=== PATIENT | female | born 1940 | race Caucasian/White ===

== ENCOUNTER 2017-06-28 10:03 | Day surgery (SDC) | payer MEDICARE, BC ==
[2017-06-26 09:57] VITALS: BMI 25.4
[~2017-06-28 10:03] MED LIST: LACTATED RINGERS 1,000 ML IV SCH; LIDOCAINE 1% 20 ML VIAL (10MG/ML) FOR IV START INTRADERMA PRN
[2017-06-28 10:44] VITALS: RESP 16; TEMP 97.6
[2017-06-28 10:55] LABS: Glucose,Whole Blood 87 mg/dL (75-99)
[2017-06-28] MEDS ORDERED: PROPOFOL 10 MG/ML 20 ML VIAL IV ONE (12:12)
[2017-06-28] MEDS ORDERED: LIDOCAINE 1% INJ 10MG/ML (20 ML MDV) ONE (12:12)
--- NOTE | 2017-06-28 12:40 | P.GSHP ---
History of Present Illness H&P Date: 06/28/17 Chief Complaint: Colon cancer screening Patient here today for colonoscopy. Last colonoscopy approximately 10 years ago. No bowel related complaints. No family history of colon cancer. Past Medical History Past Medical History: Asthma, Cancer, Deep Vein Thrombosis (DVT), GERD/Reflux, Hypertension, Osteoarthritis (OA), Skin Disorder Additional Past Medical History / Comment(s): psoriasis, basal cell cancer on face, hypoglycemia History of Any Multi-Drug Resistant Organisms: None Reported Past Surgical History: Joint Replacement, Orthopedic Surgery Additional Past Surgical History / Comment(s): cancer removed from face, neck surgery, carpal tunnel rt elbow, rt knee replacement, artie cataracts Past Anesthesia/Blood Transfusion Reactions: Postoperative Nausea & Vomiting ( PONV) Smoking Status: Former smoker - Past Family History Brother(s) Family Medical History: Cancer Additional Family Medical History / Comment(s): melanoma Medications and Allergies Home Medications Medication Instructions Recorded Confirmed Type Aspirin [Adult Low Dose Aspirin EC] 81 mg PO DAILY 06/26/17 06/26/17 History Benazepril HCl [Lotensin] 80 mg PO PC-SUPPER 06/26/17 06/26/17 History Calcium Carbonate [Calcium] 600 mg PO BID 06/26/17 06/26/17 History Hydrocodone/Acetaminophen [Vaughan 1 tab PO Q6HR PRN 06/26/17 06/28/17 History 7.5-325] Meloxicam 15 mg PO DAILY 06/26/17 06/26/17 History Multivitamins, Thera [Multivitamin 1 tab PO DAILY 06/26/17 06/26/17 History (formulary)] Omeprazole [PriLOSEC] 20 mg PO AC-BRKFST 06/26/17 06/26/17 History Triamterene-Hctz 37.5-25Mg 1 cap PO DAILY 06/26/17 06/26/17 History [Dyazide 37.5-25 Capsule] Vitamin E (Dl,Tocopheryl Acet) 400 unit PO DAILY 06/26/17 06/26/17 History [Vitamin E] Allergies Allergy/AdvReac Type Severity Reaction Status Date / Time No Known Allergies Allergy Verified 06/28/17 10:33 Surgical - Exam Vital Signs Temp Pulse Resp BP Pulse Ox 97.6 F 83 16 180/83 98 06/28/17 10:42 06/28/17 10:42 06/28/17 10:42 06/28/17 10:42 06/28/17 10:42 Physical exam: General: Well-developed, well-nourished HEENT: Normocephalic, sclerae nonicteric Abdomen: Nontender, nondistended Extremities: No edema Neuro: Alert and oriented Assessment and Plan (1) Colon cancer screening Narrative/Plan: will procede with colonoscopy Current Visit: Yes Status: Acute Code(s): Z12.11 - ENCOUNTER FOR SCREENING FOR MALIGNANT NEOPLASM OF COLON SNOMED Code(s): 685633141
--- NOTE | 2017-06-28 13:06 | P.OP ---
Date of Procedure: 06/28/17 Procedure(s) Performed: PREOPERATIVE DIAGNOSIS: Colon cancer screening POSTOPERATIVE DIAGNOSIS: Extensive diverticulosis PROCEDURE: Colonoscopy ANESTHESIA: MAC SURGEON: Rubio Chawla M.D. SPECIMENS: None ENDOSCOPIC PROCEDURE: The patient was placed on the endoscopy table in the left decubitus position. The Olympus colonoscope was inserted into the anus and passed under direct visualization to the base of the cecum. The appendiceal orifice was visualized. From that point the scope was slowly withdrawn inspecting all surfaces carefully. There were no neoplastic inflammatory or polypoid lesions throughout the cecum, ascending, transverse, descending, sigmoid and rectum. There was extensive diverticulosis noted throughout the colon but mostly within the left colon. Digital rectal examination was normal. The patient was taken to the recovery room in stable condition per anesthesia guidelines. RECOMMENDATIONS: Increase fiber. No further screening plan at this time.
[2017-06-28 13:36] VITALS: BP 157/83; PULSE 68
== END 2017-06-28 14:01 | disposition home or self-care (01) ==
LOC: ORWHC2ENDO 10:03
PROVIDERS: ATTEND Surgery
DX: Z12.11 Encounter for screening for malignant neoplasm of colon (principal); K57.30 Diverticulosis of large intestine without perforation or abscess without bleeding; J45.909 Unspecified asthma, uncomplicated; K21.9 Gastro-esophageal reflux disease without esophagitis; I10 Essential (primary) hypertension; M19.90 Unspecified osteoarthritis, unspecified site; Z85.828 Personal history of other malignant neoplasm of skin; Z86.718 Personal history of other venous thrombosis and embolism; Z79.82 Long term (current) use of aspirin; Z79.1 Long term (current) use of non-steroidal anti-inflammatories (NSAID); Z79.899 Other long term (current) drug therapy; Z87.891 Personal history of nicotine dependence
CPT/HCPCS: J2001; J2704; G0121; 45378

== ENCOUNTER → 2018-07-02 | Outpatient (CLI) | payer MEDICARE, BC ==
--- NOTE | 2018-07-04 03:55 | MR ---
EXAMINATION TYPE: MR lumbar spine wo con DATE OF EXAM: 07/02/2018 COMPARISON: 01/05/2015 HISTORY: 77-year-old female Low back pain TECHNIQUE: Multiplanar, multisequence images of the lumbar spine were acquired. FINDINGS: Ectatic upper abdominal aorta at 2.7 cm. The right kidney appears malrotated with underlying cysts measuring up to 3.5 cm. AP to mildly hyperi ntense 2.1 cm lesion lateral right kidney was not previously included in the hnwnl-al-vugi. Renal ult rasound can exclude the possibility of a solid mass. A cyst is suspected. Advanced degenerative dextroconvex scoliosis of the lumbar spine. Degree of spinal curvature makes assessment very difficult. There is moderate to advanced multilevel disc/endplate degenerative changes especially along the size of the cavity as well as hypertrophic facet arthropathy and ligamentum flavum thickening. Mild diffuse heterogeneous marrow signal without suspicious bone marrow replacement. Conus medullaris is normal. At T11-T12, there is diffuse disc bulge and ligamentum flavum thickening. Changes result in mild narr owing of the spinal canal and apparent severe right neuroforaminal stenosis. At T12-L1, diffuse disc bulge and ligamentum flavum thickening with facet arthropathy. Changes result in moderate right neuroforaminal stenosis and mild spinal canal stenosis. At L1-L2, diffuse disc bulge with ligamentum flavum thickening and hypertrophic facet arthropathy. Ch anges result in cldx-ol-sqhvstco right and severe left neuroforaminal stenosis. Mild spinal canal edmond nosis. At L2-L3, diffuse disc bulge with hypertrophic facet arthropathy on the left and ligamentum flavum th ickening. Changes result in severe left neuroforaminal stenosis and mild overall spinal canal stenosi s. At L3-L4, diffuse disc bulge with hypertrophic facet arthropathy on the left and ligamentum flavum th ickening changes result in more moderate spinal canal stenosis, slightly worsened in the interval wit h moderate left and mild right neuroforaminal stenosis. L4-L5, there is diffuse disc bulge with ligamentum flavum thickening and hypertrophic facet arthropat hy on both sides, particularly the right. There is continued severe spinal canal stenosis here with m oderate left and severe right neuroforaminal stenosis. At L5-S1, diffuse disc bulge with ligamentum flavum thickening and prominent dorsal epidural fat. Hyp ertrophic right greater than left facet arthropathy. There is mild spinal canal stenosis and continue d severe right neuroforaminal stenosis. IMPRESSION: 1. A 2.1 cm mildly hyperintense lesion in the right kidney previously not included in the field-of-vi ew. A cyst is suspected but should be confirmed with renal ultrasound. Adjacent larger 3.5 cm cyst wa s seen previously. 2. Severe degenerated dextroconvex scoliosis. Continued severe spinal canal stenosis at L4-L5. A mode rate spinal canal stenosis at L3-L4 as slightly worsened in the interval. Mild spinal canal stenoses at additional levels. 3. Variable bilateral neuroforaminal stenoses as outlined above, moderate and severe at multiple leve ls.
== END ==
LOC: RADMRIMAIN 13:24
PROVIDERS: ATTEND Family Medicine
DX: M48.061 Spinal stenosis, lumbar region without neurogenic claudication (principal); M99.73 Connective tissue and disc stenosis of intervertebral foramina of lumbar region; M41.9 Scoliosis, unspecified
CPT/HCPCS: 72148

== ENCOUNTER → 2019-03-29 | Outpatient (CLI) | payer MEDICARE, BC ==
[2019-03-29 11:56] LABS: Appearance,Urine Clear (Clear); Bilirubin,Urine Negative (Negative); Blood,Urine Negative (Negative); Color,Urine Light Yellow; Glucose,Urine (UA) Negative (Negative); Ketones,Urine Negative (Negative); Leukocyte Esterase,Urine Negative (Negative); Nitrite,Urine Negative (Negative); PH, Urine 6.5 (5.0-8.0); Protein,Urine Negative (Negative); Specific Gravity,Urine 1.008 (1.001-1.035); Urobilinogen,Urine <2.0 mg/dL (<2.0)
[2019-03-29 11:58] LABS: HCT 40.8 % (34.0-46.0); HGB 12.5 gm/dL (11.4-16.0); MCH 29.8 pg (25.0-35.0); MCHC 30.7 g/dL (31.0-37.0); MCV 97.1 fL (80.0-100.0); Mean Platelet Volume 8.1; Platelet Count 285 k/uL (150-450); RDW 12.5 % (11.5-15.5); WBC 7.1 k/uL (3.8-10.6)
[2019-03-29 12:05] LABS: ALT 22 U/L (9-52); AST 31 U/L (14-36); African American GFR (CKD) >90 (>60 ml/min/1.73 sqM); Albumin 4.6 g/dL (3.5-5.0); Alkaline Phosphatase 91 U/L (38-126); Anion Gap 9 mmol/L; Blood Urea Nitrogen 13 mg/dL (7-17); Calcium 9.9 mg/dL (8.4-10.2); Carbon Dioxide 26 mmol/L (22-30); Chloride 99 mmol/L (98-107); Glucose 95 mg/dL (74-99); Potassium 4.3 mmol/L (3.5-5.1); Sodium 134 mmol/L (137-145); Total Bilirubin 0.8 mg/dL (0.2-1.3); Total Protein 7.4 g/dL (6.3-8.2)
[2019-03-29 12:07] LABS: Partial Thromboplastin Time 28.7 sec (22.0-30.0); Prothrombin Time 10.7 sec (9.0-12.0)
== END | disposition home or self-care (01) ==
LOC: LABPAT 10:28
PROVIDERS: ATTEND Orthopaedic Surgery
DX: Z12.31 Encounter for screening mammogram for malignant neoplasm of breast (principal)
CPT/HCPCS: 80053; 81003; 85027; 85610; 85730; 87070; 93005

== ENCOUNTER 2019-04-23 14:32 | Day surgery (SDC) | payer MEDICARE, BC ==
[~2019-04-23 14:32] MED LIST changes: +ACETAMINOPHEN TAB 500 MG TAB PO ONE; +BISACODYL 10 MG SUPP RECTAL PRN; +DEXAMETHASONE SOD PHOSPHATE 10 MG/ML 1 ML VIAL IV ONE; +DIAZEPAM 5 MG TAB PO PRN; +GABAPENTIN 300 MG CAP PO ONE; +HYDROcodone/APAP 7.5-325MG 1 EACH TAB PO PRN; +HYDROmorphone 0.5 MG/0.5 ML SYRINGE IVP PRN; -LACTATED RINGERS 1,000 ML IV SCH; -LIDOCAINE 1% 20 ML VIAL (10MG/ML) FOR IV START INTRADERMA PRN; +MAGNESIUM HYDROXIDE 2,400 MG/10 ML CUP PO PRN; +MELOXICAM 7.5 MG TAB PO ONE; +MIDAZOLAM 2 MG/2 ML VIAL IV PRN; +NA PHOS,M-B/NA PHOS,DI-BA 133 ML ENEMA RECTAL PRN; +NALOXONE 0.4 MG/ML 1 ML VIAL IV PRN; +ONDANSETRON 4 MG/2 ML VIAL IVP ONE; +ONDANSETRON 4 MG/2 ML VIAL IVP PRN; +ROPIVACAINE 246.25 MG, EPINEPHrine 0.5 MG, KETOROLAC 30 MG, cloNIDine HCL/PF 80 MCG, WA... MISCELLANE ONE; +TRANEXAMIC ACID 1,000 MG in SODIUM CHLORIDE 0.9% 100 ML IVPB ONE
[2019-04-23] MEDS ORDERED: LIDOCAINE 1% 20 ML VIAL (10MG/ML) FOR IV START INTRADERMA ONE (14:48)
[2019-04-23] MEDS ORDERED: LACTATED RINGERS 1,000 ML IV ONE (15:06)
[2019-04-23] MEDS ORDERED: fentaNYL (PF) 50 MCG/ML 2 ML AMP IVP ONE (15:07)
[2019-04-23] MEDS ORDERED: MIDAZOLAM 2 MG/2 ML VIAL IVP ONE (15:07)
[2019-04-23] MEDS ORDERED: ROPIVACAINE 0.2%-NS ON-Q PUMP 1,090 MG, EMPTY PAIN BALL 1 EACH MISCELLANE PRN (15:39)
--- NOTE | 2019-04-23 15:41 | P.ANPRN ---
Procedure Note - Anesthesia - Nerve Block Performed Left Adductor Canal Infusion Time Out Performed: Yes Date of Procedure: 04/23/19 Procedure Start Time: 15:06 Procedure Stop Time: 15:17 Location of Patient: PreOp Indication: Acute Post-Operative Pain Specifically requested for management of pain by DrMarietta: Benjamin Shea Sedation Type: Sedate with meaningful contact maintained Preparation: Sterile Prep Position: Supine Catheter Depth at Skin (cm): 8 Catheter: Indwelling Needle Types: Pajunk Needle Gauge: 18 Ultrasound used to visualize needle placement: Yes Ultrasound used to observe medication spread: Yes Injectate: 0.5% Ropivacaine (see comment for volume) (20 cc) Blood Aspirated: No Pain Paresthesia on Injection Noted: No Resistance on Injection: Normal Image Stored and Saved: Yes Events: Uneventful and Well Tolerated
[2019-04-23] MEDS ORDERED: PHENYLEPHRINE-0.9% NACL SYG 1 MG/10 ML SYRINGE ONE (16:05)
[2019-04-23] MEDS ORDERED: NEOSTIGMINE 1 MG/ML 10 ML VIAL ONE (16:05)
[2019-04-23] MEDS ORDERED: PROPOFOL 10 MG/ML 20 ML VIAL IV ONE (16:05)
[2019-04-23] MEDS ORDERED: HYDROmorphone (PF) 1 MG/ML ONE (16:05)
[2019-04-23] MEDS ORDERED: ROCURONIUM BROMIDE 10 MG/ML 10 ML VIAL IV ONE (16:05)
[2019-04-23] MEDS ORDERED: fentaNYL (PF) 50 MCG/ML 2 ML AMP ONE (16:05)
[2019-04-23] MEDS ORDERED: TRANEXAMIC ACID 1,000 MG/10 ML VIAL ONE (16:05)
[2019-04-23] MEDS ORDERED: ceFAZolin 3,000 MG in SODIUM CHLORIDE 0.9% IRRIGATIO 3,000 ML IRRIGATION ONE (16:05)
[2019-04-23] MEDS ORDERED: GLYCOPYRROLATE 0.2 MG/ML 2 ML VIAL ONE (16:05)
[2019-04-23] MEDS ORDERED: SUCCINYLCHOLINE CHLORIDE 100 MG/5 ML SYR IV ONE (16:05)
[2019-04-23] MEDS ORDERED: MIDAZOLAM 2 MG/2 ML VIAL ONE (16:05)
[2019-04-23] MEDS ORDERED: SODIUM CHLORIDE 0.9% 100 ML BAG ONE (16:05)
--- NOTE | 2019-04-23 17:59 | P.OP ---
Date of Procedure: 04/23/19 Preoperative Diagnosis: Severe osteoarthritis left knee Postoperative Diagnosis: Severe osteoarthritis left knee Procedure(s) Performed: Left total knee arthroplasty with [employer] patient specific guides Implants: Olivera [employer] Nephew Journey II CR Oxinium Bi-cruciate Stabalized femoral component size 5, left Oliver[employer]hew Journey left nonporous tibial baseplate size 4 Olivera [employer] Nephew Journey II, XLPE Constrained articular insert, size 10 mm, Size 3-4 left [employer] Journey BCS resurfacing oval patellar component, 29 mm All components were cemented using Palacos R bone cement. Vision[employer] patient specific guides The articulation is Oxinium on polyethylene. Anesthesia: GETA Surgeon: Benjamin Shea Silo Worker #1: Lora Adams Estimated Blood Loss (ml): 25 Pathology: other (Bone and cartilage) Condition: stable Disposition: PACU Indications for Procedure: After failure of conservative treatment we discussed the surgical and nonsurgical treatment options at length. Patient wishes to proceed with a total knee arthroplasty. Complications specific to this procedure were discussed at length, including but not limited to infection, bleeding, stiffness, and nerve injury. Patient is aware of all these complications and informed consent was obtained Operative Findings: The operative findings are consistent with severe osteoarthritis of the left knee Description of Procedure: Patient was seen in the preoperative area consent was reviewed and operative site was marked with a skin marker. An adductor canal pain catheter was placed by anesthesia in the preoperative area. Patient was then brought to the operating room and given preoperative antibiotics intravenously. A general anesthetic was administered by the anesthesia department. A tourniquet was placed on the upper thigh and the lower extremity was prepped and draped in usual sterile fashion. A gram of transexamic acid was given. A universal timeout was then performed which confirmed the patient's name, surgical site, ALLERGIES, and consent. The lower extremity was then exsanguinated and tourniquet was inflated to 250 mmHg. A standard and anterior midline approach to the knee was performed. The skin and subcutaneous tissue was dissected down to the patellar tendon. A medial parapatellar arthrotomy was then performed. The knee was then extended, the patellar was everted, and the knee was again flexed. Anterior horns of both menisci were excised, and a release was performed to the posterior medial aspect of the knee. On gross visual inspection, there was complete loss of articular cartilage in the medial and patellofemoral joint spaces. There was also significant cartilage damage in the lateral compartment. There were multiple periarticular osteophytes. The patient specific guide was placed on the distal femur, and pinned in place. Using the patient specific guide, the distal femoral cut was performed. The cutting block was then removed and the cut was checked for flatness. The appropriate 5-in-1 cutting block was then pinned in place through the holes that were drilled through the patient specific guide. The anterior condyles were cut without notching. The posterior and chamfer cuts were performed while protecting the collateral ligaments. The cutting block was then removed. Attention was then directed to the tibia. The remaining ACL was removed with a Ronguer, and the tibia was then gently subluxed forward with a large bent knee retractor. Any remaining menisci was excised. The posterior lateral corner was cauterized in order to cauterize the lateral geniculate artery. The patient specific guide for the tibia was then placed and was held in place with pins. Pinholes were then placed for rotation of the tibial component as well. Proximal tibia was then cut and sized. Next trials were then placed with the appropriate-sized insert. The knee was able to fully extend and flex to 130 and was stable throughout all range of motion. The knee was then extended, patella everted. Patella was then measured, and then using an osteotomy guide, the patella was cut at the appropriate level. The patella was then measured and drilled and the patella trial was then placed. The knee was then taken through range of motion with the patella trial and the patella tracked normally. The knee was then extended patella trial was then removed and the patella was everted. Knee was then flexed and lug holes were drilled through the femoral trial and the femoral trial was then removed. The tibial was then exposed, and the tibial broach guide was then pinned in place after it was set for the appropriate rotation to allow for the most coverage without overhang. The tibia was then reamed and broached. The cut surfaces of bone were then irrigated with pulsatile lavage. The posterior structures were injected with the ropivacaine solution. The knee was also irrigated with Irrisept solution. The components were then opened, the cement was mixed, and the components were then cemented in place. The cement was allowed to harden with the knee in full extension. While the cement was hardening, the remaining soft tissues were then injected with a ropivacaine solution, which consisted of 246.25 mg of ropivacaine, 0.5 mg of epinephrine, 30 mg of Toradol, 80 g of clonidine, and 48.45 mL of sterile water, for a total of 100 mL of fluid injected. After the cemented hardened. The tourniquet was released, and hemostasis was obtained. A second gram of transexamic acid was given. The knee was again irrigated. The knee was again taken through range of motion and found to be stable throughout all range of motion of 0-130, and the patella tracked normally. The fascia was then closed with #2 strata fix suture. The subcutaneous tissue was closed with 3-0 Vicryl and 3-0 strata fix. Dermabond glue was used for the skin and placed with the knee in flexion. The patient was placed in a sterile silver dressing. Patient was then transferred to recovery room in stable condition. The multimedia production assistant PRAVIN Jama was required due the complexity surgery and the need for a skilled surgical aides teacher. She assisted in positioning, draping, retraction, and closure of the wound.
--- NOTE | 2019-04-23 18:45 | XR ---
EXAMINATION TYPE: XR knee limited LT DATE OF EXAM: 04/23/2019 COMPARISON: NONE HISTORY: Knee surgery TECHNIQUE: 2 views FINDINGS: There is left knee prosthesis. Components are in anatomic position. IMPRESSION: No complicating process seen.
[2019-04-23 20:02] VITALS: BMI 26.6
[2019-04-23] MEDS: LACTATED RINGERS 1,000 ML IV SCH (20:10)
[2019-04-23] MEDS ORDERED: SENNOSIDES-DOCUSATE SODIUM 1 EACH TAB PO SCH (21:00)
[2019-04-24] MEDS: SODIUM CHLORIDE 0.9% 1,000 ML IV SCH ×2 (01:05→04:26)
[2019-04-24 02:14] VITALS: PULSE 81; RESP 16
[2019-04-24] MEDS: LACTATED RINGERS 1,000 ML IV SCH (04:26)
[2019-04-24 08:04] VITALS: BP 113/74; TEMP 97.6
[2019-04-24 08:18] LABS: Basophils % (A) 0 %; Eosinophils % (A) 0 %; HCT 34.5 % (34.0-46.0); HGB 11.4 gm/dL (11.4-16.0); Lymphocytes # (A) 0.8 k/uL (1.0-4.8); Lymphocytes % (A) 5 %; MCH 31.5 pg (25.0-35.0); MCHC 32.9 g/dL (31.0-37.0); MCV 95.7 fL (80.0-100.0); Mean Platelet Volume 7.5; Monocytes # (A) 0.7 k/uL (0-1.0); Monocytes % (A) 4 %; Neutrophils # (A) 14.8 k/uL (1.3-7.7); Neutrophils % (A) 90 %; Platelet Count 286 k/uL (150-450); RDW 12.3 % (11.5-15.5); WBC 16.4 k/uL (3.8-10.6)
[2019-04-24] MEDS ORDERED: HYDROcodone/APAP 5-325MG 1 EACH TAB PO PRN ×2 (08:53)
[2019-04-24] MEDS ORDERED: RIVAROXABAN 10 MG TAB PO SCH (09:00)
--- NOTE | 2019-04-24 09:02 | P.DS ---
Providers Expected date of discharge: 04/24/19 Attending physician: Benjamin Shea Consults: 04/23/19 13:45 Consult Physician Routine Consulting Provider: Alejandra Carbajal Consult Reason/Comments: medical management Do you want consulting provider notified?: Yes Primary care physician: Callie Chawla - Discharge Diagnosis(es) (1) Osteoarthritis of left knee Current Visit: Yes Status: Acute (2) S/P total knee arthroplasty Current Visit: Yes Status: Acute Hospital Course: This is a 78-year-old female with known history of degenerative arthritis of the left knee. The patient presents for evaluation. After discussion and consideration patient elects to proceed with total knee arthroplasty. The patient is seen preoperatively by Dr. Shea and medically cleared for surgery by their primary care physician. Patient is admitted to [facility] on 04/23/2019 for total knee arthroplasty. The procedures performed without complication or sequelae. The patient is doing well postoperatively. Labs and vital signs are stable on day of discharge. On day of discharge patient's knee incision is healing well. There is minimal erythema. There is no drainage noted at this time. There is minimal soft tissue swelling to the knee. Patient has full foot and ankle motion without difficulty or pain. Calf is soft and nontender to palpation. Neurovascular status to the left lower extremity is intact. Patient is discharged home in good condition. Opioid start talking form is reviewed and signed at patient bedside. Please see med rec for accurate list of home medications. Plan - Discharge Summary Discharge Rx Participant: Yes New Discharge Prescriptions: New HYDROcodone/APAP 5-325MG [[place] 5-325] 1 - 2 tab PO Q6HR PRN #56 tab PRN Reason: Pain Sennosides [Senokot] 1 tab PO BID #60 tablet Rivaroxaban [Xarelto] 10 mg PO DAILY #30 tab No Action Multivitamins, Thera [Multivitamin (formulary)] 1 tab PO DAILY Meloxicam 15 mg PO DAILY Benazepril HCl [Lotensin] 40 mg PO BID Triamterene-Hctz 37.5-25Mg [Dyazide 37.5-25 Capsule] 1 cap PO DAILY Omeprazole [PriLOSEC] 20 mg PO AC-BRKFST PRN PRN Reason: Gerd Calcium Carbonate [Calcium] 600 mg PO BID Hydrocodone/Acetaminophen [[place] 7.5-325] 1 tab PO Q6HR PRN PRN Reason: Pain Aspirin [Adult Low Dose Aspirin EC] 81 mg PO DAILY Discharge Medication List Aspirin [Adult Low Dose Aspirin EC] 81 mg PO DAILY 06/26/17 [History] Benazepril HCl [Lotensin] 40 mg PO BID 06/26/17 [History] Calcium Carbonate [Calcium] 600 mg PO BID 06/26/17 [History] Hydrocodone/Acetaminophen [[place] 7.5-325] 1 tab PO Q6HR PRN 06/26/17 [History] Meloxicam 15 mg PO DAILY 06/26/17 [History] Multivitamins, Thera [Multivitamin (formulary)] 1 tab PO DAILY 06/26/17 [History] Omeprazole [PriLOSEC] 20 mg PO AC-BRKFST PRN 06/26/17 [History] Triamterene-Hctz 37.5-25Mg [Dyazide 37.5-25 Capsule] 1 cap PO DAILY 06/26/17 [History] HYDROcodone/APAP 5-325MG [[place] 5-325] 1 - 2 tab PO Q6HR PRN #56 tab 04/24/19 [Rx] Rivaroxaban [Xarelto] 10 mg PO DAILY #30 tab 04/24/19 [Rx] Sennosides [Senokot] 1 tab PO BID #60 tablet 04/24/19 [Rx] Follow up Appointment(s)/Referral(s): Benjamin Shea DO [Doctor of Osteopathic Medicine] - 2 Weeks Activity/Diet/Wound Care/Special Instructions: Weightbearing as tolerated with a walker. Xarelto to be taken once daily for 11 days only. CPM 5-6h daily. Leave dressing intact. May be removed by home care nurse or by patient in 10 days. May shower with dressing on. Recommend use of compression stockings daily for at least 2 weeks during the day to help prevent swelling and blood clots. May remove at night before sleeping. Please follow up with [facility] and call with any questions or concerns, . Discharge Disposition: HOME WITH HOME HEALTH SERVICES
--- NOTE | 2019-04-24 13:43 | P.PN ---
Progress Note - Text Progress Note Date: 04/24/19 70-year-old female status post left total knee arthroplasty postop day #1. Abductor canal catheter day #2. VAS is 0-1 out of 10 in severity. Patient is doing very well. And bleeding well. Patient scheduled for discharge.
--- NOTE | 2019-04-24 14:23 | P.CONS ---
History of Present Illness - Reason for Consult Leukocytosis - History of Present Illness 72-year-old pleasant female was admitted for elective left knee arthroplasty successfully underwent surgery. Patient is clinically doing well did pass gas did not move her bowel yet patient blood pressures are still low normal side patient takes 40 mg twice a day when as a possible which she didn't take today and patient is also on diuretic therapy for blood pressure in patient intake blood pressure medication at this morning. Patient does have leukocytosis without any cough without any fever without any dysuria. No evidence of infection at this time. I counseled her regarding blood pressure measurement at home and counseled her regarding appropriate way to check blood pressure. Review of Systems REVIEW OF SYSTEMS: CONSTITUTIONAL: No fever, no malaise, no fatigue. HEENT: No recent visual problems or hearing problems. Denied any sore throat. CARDIOVASCULAR: No chest pain, orthopnea, PND, no palpitations, no syncope. PULMONARY: No shortness of breath, no cough, no hemoptysis. GASTROINTESTINAL: No diarrhea, no nausea, no vomiting, no abdominal pain. NEUROLOGICAL: No headaches, no weakness, no numbness. HEMATOLOGICAL: Denies any bleeding or petechiae. GENITOURINARY: Denies any burning micturition, frequency, or urgency. MUSCULOSKELETAL/RHEUMATOLOGICAL: Denies any joint pain, swelling, or any muscle pain. ENDOCRINE: Denies any polyuria or polydipsia. The rest of the 14-point review of systems is negative. Past Medical History Past Medical History: Asthma, Cancer, Deep Vein Thrombosis (DVT), GERD/Reflux, Hypertension, Osteoarthritis (OA), Skin Disorder Additional Past Medical History / Comment(s): psoriasis, basal cell cancer on face, History of Any Multi-Drug Resistant Organisms: None Reported Past Surgical History: Joint Replacement, Orthopedic Surgery Additional Past Surgical History / Comment(s): curvature of the spine, cancer removed from face, neck surgery at age 5, carpal tunnel rt elbow, rt knee replacement, artie cataracts Past Anesthesia/Blood Transfusion Reactions: Postoperative Nausea & Vomiting (PONV) Additional Past Anesthesia/Blood Transfusion Reaction / Comm: with general anesthesia Past Psychological History: No Psychological Hx Reported Smoking Status: Former smoker Past Alcohol Use History: Occasional Additional Past Alcohol Use History / Comment(s): smoked as teen for 2-3 yrs Past Drug Use History: None Reported - Past Family History Brother(s) Family Medical History: Cancer Additional Family Medical History / Comment(s): melanoma Medications and Allergies Home Medications Medication Instructions Recorded Confirmed Type Aspirin [Adult Low Dose Aspirin EC] 81 mg PO DAILY 06/26/17 04/18/19 History Calcium Carbonate [Calcium] 600 mg PO BID 06/26/17 04/18/19 History Hydrocodone/Acetaminophen [[place] 1 tab PO Q6HR PRN 06/26/17 04/18/19 History 7.5-325] Meloxicam 15 mg PO DAILY 06/26/17 04/18/19 History Multivitamins, Thera [Multivitamin 1 tab PO DAILY 06/26/17 04/18/19 History (formulary)] Omeprazole [PriLOSEC] 20 mg PO AC-BRKFST PRN 06/26/17 04/18/19 History Triamterene-Hctz 37.5-25Mg 1 cap PO DAILY 06/26/17 04/18/19 History [Dyazide 37.5-25 Capsule] Apixaban [Eliquis] 2.5 mg PO BID #60 tab 04/24/19 Rx Benazepril HCl [Lotensin] 40 mg PO DAILY #0 04/24/19 04/18/19 Rx HYDROcodone/APAP 5-325MG [[place] 1 - 2 tab PO Q6HR PRN #56 tab 04/24/19 Rx 5-325] Sennosides [Senokot] 1 tab PO BID #60 tablet 04/24/19 Rx Allergies Allergy/AdvReac Type Severity Reaction Status Date / Time No Known Allergies Allergy Verified 04/18/19 15:18 Physical Exam Vitals: Vital Signs Temp Pulse Pulse Resp BP BP Pulse Ox 04/24/19 07:00 97.6 F 81 16 113/74 90 L 04/24/19 02:13 97.7 F 81 16 109/73 95 04/23/19 21:30 68 128/76 96 04/23/19 21:15 77 121/73 95 04/23/19 21:00 78 118/70 97 04/23/19 20:45 81 126/69 96 04/23/19 20:30 80 113/75 97 04/23/19 20:15 69 126/83 97 04/23/19 20:00 97.8 F 67 18 108/69 95 04/23/19 19:00 70 16 97/53 04/23/19 18:45 75 16 91/55 92 L 04/23/19 18:30 73 16 101/56 93 L 04/23/19 18:10 97.6 F 73 18 112/58 98 04/23/19 15:38 67 18 124/58 98 04/23/19 15:05 97.8 F 73 18 137/94 100 Intake and Output 04/23/19 04/24/19 04/24/19 22:59 06:59 14:59 Intake Total 801 Output Total 25 Balance 776 Intake: IV 801 Output: Estimated Blood Loss 25 Other: Voiding Method Toilet # Voids 0 1 Weight 61.689 kg PHYSICAL EXAMINATION: GENERAL: The patient is alert and oriented x3, not in any acute distress. Well developed, well nourished. HEENT: Pupils are round and equally reacting to light. EOMI. No scleral icterus. No conjunctival pallor. Normocephalic, atraumatic. No pharyngeal erythema. No thyromegaly. CARDIOVASCULAR: S1 and S2 present. No murmurs, rubs, or gallops. PULMONARY: Chest is clear to auscultation, no wheezing or crackles. ABDOMEN: Soft, nontender, nondistended, normoactive bowel sounds. No palpable organomegaly. MUSCULOSKELETAL: No joint swelling or deformity. Left knee is post surgically packed EXTREMITIES: No cyanosis, clubbing, or pedal edema. NEUROLOGICAL: Gross neurological examination did not reveal any focal deficits. SKIN: No rashes. Results CBC & Chem 7: 04/24/19 07:24 Labs: Abnormal Lab Results - Last 24 Hours (Table) 04/24/19 Range/Units 07:24 WBC 16.4 H (3.8-10.6) k/uL RBC 3.60 L (3.80-5.40) m/uL Neutrophils # 14.8 H (1.3-7.7) k/uL Lymphocytes # 0.8 L (1.0-4.8) k/uL Assessment and Plan Plan: -Leukocytosis reactive without any evidence of infection and secondary to surgery. -Hypertension patient was asked to resume 40 mg of [place] present tomorrow evening changed it to 40 mg daily from twice a day and patient can start her diuretic from day. Her blood sugar is not low. Patient has to follow up with the primary care physician about a week. -As well without any acute exacerbation -Gastroesophageal reflux disease patient was asked to switch to H2 blockers Proton pump inhibitors down the line. - osteoarthritis patient underwent left knee arthroplasty pain management due to prophylaxis as per primary service and patient can be discharged from medical perspective
== END 2019-04-24 15:02 | disposition home health service (06) ==
LOC: OR 14:32 → 4SSUR 18:20 → OR 04-24 15:02
PROVIDERS: ATTEND Orthopaedic Surgery
DX: M17.12 Unilateral primary osteoarthritis, left knee (principal); I10 Essential (primary) hypertension; H91.90 Unspecified hearing loss, unspecified ear; R26.81 Unsteadiness on feet; Z85.828 Personal history of other malignant neoplasm of skin; Z97.3 Presence of spectacles and contact lenses; Z96.651 Presence of right artificial knee joint; Z83.3 Family history of diabetes mellitus; Z82.49 Family history of ischemic heart disease and other diseases of the circulatory system; D72.829 Elevated white blood cell count, unspecified; J45.909 Unspecified asthma, uncomplicated; Z86.718 Personal history of other venous thrombosis and embolism; K21.9 Gastro-esophageal reflux disease without esophagitis; L40.9 Psoriasis, unspecified; Z98.42 Cataract extraction status, left eye; Z98.41 Cataract extraction status, right eye; Z87.891 Personal history of nicotine dependence; Z80.8 Family history of malignant neoplasm of other organs or systems; Z79.1 Long term (current) use of non-steroidal anti-inflammatories (NSAID); Z79.82 Long term (current) use of aspirin; Z79.891 Long term (current) use of opiate analgesic; Z79.899 Other long term (current) drug therapy; Z79.01 Long term (current) use of anticoagulants
CPT/HCPCS: 97161; 64448; 76942; 85025; 73560; 27447; C1713; C1776; J2250; J0171; J1100; J0690 ×3; J2405; J3010; J1885; J2795 ×2; J0735; 88300

== ENCOUNTER 2019-05-01 09:56 | Emergency (ER) | payer MEDICARE, BC ==
[2019-05-01 10:00] VITALS: RESP 18; TEMP 98.2
[2019-05-01] MEDS ORDERED: SODIUM CHLORIDE 0.9% 1,000 ML IV STA ×2 (10:10)
--- NOTE | 2019-05-01 10:17 | ED ---
Arrhythmia/Palpitations HPI - General Chief Complaint: Arrhythmia/Palpitations Stated Complaint: elevated BP Time Seen by Provider: 05/01/19 10:01 Source: patient, RN notes reviewed, old records reviewed Mode of arrival: wheelchair Limitations: no limitations - History of Present Illness Initial Comments: Patient is a 70-year-old female, 1 week post left knee replacement, presents emergency department today with fluctuating heart rates. Patient reports that over the past 5 days that she's felt that her heart rate is bounding and feels a fluttering in her chest. She denies any associated pain with this. She reports that this happens while resting and with activity. Patient states that she's been doing well otherwise after her knee replacement, denies any associated shortness of breath or chest pain. She is on a blood thinner for DVT prophy laxis. Patient states that she has had no fevers or chills. She was seen by her visiting nurse and had her dressing changed today. - Related Data Home Medications Medication Instructions Recorded Confirmed Aspirin [Adult Low Dose Aspirin EC] 81 mg PO DAILY 06/26/17 05/01/19 Hydrocodone/Acetaminophen [[place] 1 tab PO Q6HR PRN 06/26/17 05/01/19 7.5-325] Omeprazole [PriLOSEC] 20 mg PO AC-BRKFST PRN 06/26/17 05/01/19 Triamterene-Hctz 37.5-25Mg 1 cap PO DAILY 06/26/17 05/01/19 [Dyazide 37.5-25 Capsule] Benazepril HCl [Lotensin] 40 mg PO BID 05/01/19 05/01/19 Previous Rx's Medication Instructions Recorded Apixaban [Eliquis] 2.5 mg PO BID #60 tab 04/24/19 Sennosides [Senokot] 1 tab PO BID #60 tablet 04/24/19 Allergies Allergy/AdvReac Type Severity Reaction Status Date / Time No Known Allergies Allergy Verified 05/01/19 11:30 Review of Systems ROS Statement: Those systems with pertinent positive or pertinent negative responses have been documented in the HPI. ROS Other: All systems not noted in ROS Statement are negative. Past Medical History Past Medical History: Asthma, Cancer, Deep Vein Thrombosis (DVT), GERD/Reflux, Hypertension, Osteoarthritis (OA), Skin Disorder Additional Past Medical History / Comment(s): psoriasis, basal cell cancer on face, hypoglycemia History of Any Multi-Drug Resistant Organisms: None Reported Past Surgical History: Joint Replacement, Orthopedic Surgery Additional Past Surgical History / Comment(s): cancer removed from face, neck surgery, carpal tunnel rt elbow, rt knee replacement, artie cataracts Past Anesthesia/Blood Transfusion Reactions: Postoperative Nausea & Vomiting (PONV) Past Psychological History: No Psychological Hx Reported Smoking Status: Former smoker Past Alcohol Use History: Occasional Past Drug Use History: None Reported - Past Family History Brother(s) Family Medical History: Cancer Additional Family Medical History / Comment(s): melanoma General Exam - General Exam Comments Initial Comments: pleasant 78-year-old female. No significant distress. Limitations: no limitations General appearance: alert, in no apparent distress Head exam: Present: atraumatic, normocephalic, normal inspection Eye exam: Present: normal appearance, PERRL, EOMI. Absent: scleral icterus, conjunctival injection, periorbital swelling ENT exam: Present: normal exam, mucous membranes moist Neck exam: Present: normal inspection. Absent: tenderness, meningismus, lymphadenopathy Respiratory exam: Present: normal lung sounds bilaterally. Absent: respiratory distress, wheezes, rales, rhonchi, stridor Cardiovascular Exam: Present: regular rate, normal rhythm, normal heart sounds. Absent: systolic murmur, diastolic murmur, rubs, gallop, clicks GI/Abdominal exam: Present: soft, normal bowel sounds. Absent: distended, tenderness, guarding, rebound, rigid Extremities exam: Present: normal inspection, full ROM, normal capillary refill. Absent: tenderness, pedal edema, joint swelling, calf tenderness Left Knee exam: Present: normal inspection, full ROM, laceration (well appearing incision site. ) Lower Leg exam: Present: normal inspection, full ROM Ankle exam: Present: normal inspection, full ROM Foot/Toe exam: Present: normal inspection, full ROM Back exam: Present: normal inspection Neurological exam: Present: alert, oriented X3, CN II-XII intact Psychiatric exam: Present: normal affect, normal mood Skin exam: Present: warm, dry, intact, normal color. 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 She has had blood pressures ranging from 145/91, with an 82 heart rate to 120/87 with a 90 heart rate. Lowest blood pressure was at 6 PM on 1120 296/84. Her blood pressure this morning on 1127 was 133/90 with a heart rate of 90. Reevaluation #2: 05/01/19 13:23 Patient was reevaluated multiple times. She has no further complaints of any pain or shortness of breath. She denies any palpitations at this time. Her heart rate has been stable, between 80 and 90. Patient has no associated chest pain or shortness of breath again. I discussed with the Patient she feels well she can continue to monitor her blood pressure at home if she would have any symptoms of chest pain or shortness of breath that he would prompt return. EKG Findings - EKG Comments: EKG Findings:: EKG performed at 1014 shows sinus rhythm with marked sinus arrhythmia, otherwise normal EKG noted. Ventricular rate of 94 bpm period. It was 146 most seconds. Curious duration is 86 ms. QT QTc is 350/437 ms. Medical Decision Making - Medical Decision Making Patient's of 78-year-old female, who presents emergency department today for concerns for elevated blood pressures and heart rates intermittently for the past week. She had a knee replacement on her left knee done last week. She's been maintained on blood thinners. She had really denies any chest pain or shortness of breath. Patient states that she took her blood pressure medications this morning and upon arrival her blood pressure was somewhat low, 90/60. After fluids her blood pressure remained normal. Ear EKG shows no acute arrhythmias. Patient's been asked multiple times there is any discomfort chest pain or shortness of breath and she continues to deny this. Patient's labwork was reviewed. Mild leukocytosis but this is decreased from her surgery. No overt signs of infection or fevers. I discussed the Patient should rest, remain hydrated. I did offer the Patient admission and cardiac consult. She states t hat she otherwise feels well this time would prefer to go home. Discussed that she can follow-up with her primary care doctor and may benefit from a heart monitor. - Lab Data Result diagrams: 05/01/19 10:05/01/19 10: Lab Results 05/01/19 05/01/19 05/01/19 Range/Units 10: 10: 10: WBC 14.3 H (3.8-10.6) k/uL RBC 3.87 (3.80-5.40) m/uL Hgb 12.1 (11.4-16.0) gm/dL Hct 36.5 (34.0-46.0) % MCV 94.4 (80.0-100.0) fL MCH 31.3 (25.0-35.0) pg MCHC 33.2 (31.0-37.0) g/dL RDW 12.2 (11.5-15.5) % Plt Count 606 H D (150-450) k/uL Neutrophils % 85 % Lymphocytes % 6 % Monocytes % 6 % Eosinophils % 1 % Basophils % 1 % Neutrophils # 12.2 H (1.3-7.7) k/uL Lymphocytes # 0.9 L (1.0-4.8) k/uL Monocytes # 0.9 (0-1.0) k/uL Eosinophils # 0.1 (0-0.7) k/uL Basophils # 0.1 (0-0.2) k/uL PT 10.2 (9.0-12.0) sec INR 0.9 (<1.2) APTT 30.5 H (22.0-30.0) sec Sodium 129 L (137-145) mmol/L Potassium 4.6 (3.5-5.1) mmol/L Chloride 93 L (98-107) mmol/L Carbon Dioxide 27 (22-30) mmol/L Anion Gap 9 mmol/L BUN 17 (7-17) mg/dL Creatinine 0.61 (0.52-1.04) mg/dL Est GFR (CKD-EPI)AfAm >90 (>60 ml/min/1.73 sqM) Est GFR (CKD-EPI)NonAf 87 (>60 ml/min/1.73 sqM) Glucose 116 H (74-99) mg/dL Calcium 9.9 (8.4-10.2) mg/dL Magnesium 2.0 (1.6-2.3) mg/dL Total Bilirubin 1.2 (0.2-1.3) mg/dL AST 27 (14-36) U/L ALT 20 (9-52) U/L Alkaline Phosphatase 95 (38-126) U/L Troponin I (0.000-0.034) ng/mL Total Protein 6.8 (6.3-8.2) g/dL Albumin 4.1 (3.5-5.0) g/dL TSH 3.370 (0.465-4.680) mIU/L Urine Color Urine Appearance (Clear) Urine pH (5.0-8.0) Ur Specific [place] (1.001-1.035) Urine Protein (Negative) Urine Glucose (UA) (Negative) Urine Ketones (Negative) Urine Blood (Negative) Urine Nitrite (Negative) Urine Bilirubin (Negative) Urine Urobilinogen (<2.0) mg/dL Ur Leukocyte Esterase (Negative) 05/01/19 05/01/19 Range/Units 10:27 12:25 WBC (3.8-10.6) k/uL RBC (3.80-5.40) m/uL Hgb (11.4-16.0) gm/dL Hct (34.0-46.0) % MCV (80.0-100.0) fL MCH (25.0-35.0) pg MCHC (31.0-37.0) g/dL RDW (11.5-15.5) % Plt Count (150-450) k/uL Neutrophils % % Lymphocytes % % Monocytes % % Eosinophils % % Basophils % % Neutrophils # (1.3-7.7) k/uL Lymphocytes # (1.0-4.8) k/uL Monocytes # (0-1.0) k/uL Eosinophils # (0-0.7) k/uL Basophils # (0-0.2) k/uL PT (9.0-12.0) sec INR (<1.2) APTT (22.0-30.0) sec Sodium (137-145) mmol/L Potassium (3.5-5.1) mmol/L Chloride (98-107) mmol/L Carbon Dioxide (22-30) mmol/L Anion Gap mmol/L BUN (7-17) mg/dL Creatinine (0.52-1.04) mg/dL Est GFR (CKD-EPI)AfAm (>60 ml/min/1.73 sqM) Est GFR (CKD-EPI)NonAf (>60 ml/min/1.73 sqM) Glucose (74-99) mg/dL Calcium (8.4-10.2) mg/dL Magnesium (1.6-2.3) mg/dL Total Bilirubin (0.2-1.3) mg/dL AST (14-36) U/L ALT (9-52) U/L Alkaline Phosphatase (38-126) U/L Troponin I <0.012 (0.000-0.034) ng/mL Total Protein (6.3-8.2) g/dL Albumin (3.5-5.0) g/dL TSH (0.465-4.680) mIU/L Urine Color Yellow Urine Appearance Clear (Clear) Urine pH 7.5 (5.0-8.0) Ur Specific [place] 1.013 (1.001-1.035) Urine Protein Negative (Negative) Urine Glucose (UA) Negative (Negative) Urine Ketones Negative (Negative) Urine Blood Negative (Negative) Urine Nitrite Negative (Negative) Urine Bilirubin Negative (Negative) Urine Urobilinogen <2.0 (<2.0) mg/dL Ur Leukocyte Esterase Negative (Negative) - Radiology Data Radiology results: report reviewed Chest x-rays negative for any acute cardiac process. Disposition Clinical Impression: History of palpitations Disposition: HOME SELF-CARE Condition: Good Instructions (If sedation given, give patient instructions): Heart Palpitations (ED) Additional Instructions: Recommendations rest remain hydrated. Return if there is any chest pain or any other further symptoms. Have prompt follow-up with your primary care doctor. Is patient prescribed a controlled substance at d/c from ED?: No Referrals: Callie Chawla MD [Primary Care Provider] - 1-2 days Time of Disposition: 13:26
[2019-05-01 10:53] LABS: INR 0.9 (<1.2); Partial Thromboplastin Time 30.5 sec (22.0-30.0); Prothrombin Time 10.2 sec (9.0-12.0)
[2019-05-01 10:54] LABS: Basophils # (A) 0.1 k/uL (0-0.2); Basophils % (A) 1 %; Eosinophils # (A) 0.1 k/uL (0-0.7); Eosinophils % (A) 1 %; HCT 36.5 % (34.0-46.0); HGB 12.1 gm/dL (11.4-16.0); Lymphocytes # (A) 0.9 k/uL (1.0-4.8); Lymphocytes % (A) 6 %; MCH 31.3 pg (25.0-35.0); MCHC 33.2 g/dL (31.0-37.0); MCV 94.4 fL (80.0-100.0); Mean Platelet Volume 6.3; Monocytes # (A) 0.9 k/uL (0-1.0); Monocytes % (A) 6 %; Neutrophils # (A) 12.2 k/uL (1.3-7.7); Neutrophils % (A) 85 %; RBC 3.87 m/uL (3.80-5.40); RDW 12.2 % (11.5-15.5); WBC 14.3 k/uL (3.8-10.6)
--- NOTE | 2019-05-01 10:55 | XR ---
EXAMINATION TYPE: XR chest 2V DATE OF EXAM: 05/01/2019 COMPARISON: NONE HISTORY: Dysrhythmia, tachycardia. TECHNIQUE: Frontal and lateral views of the chest are obtained. FINDINGS: There is no focal air space opacity, pleural effusion, or pneumothorax seen. The cardiac silhouette size is within normal limits with atherosclerotic thoracic aorta. There is marked dextroco nvex scoliosis in the mid lumbar spine. IMPRESSION: No acute cardiopulmonary process.
[2019-05-01 11:02] LABS: Platelet Count 606 k/uL (150-450)
[2019-05-01 11:05] LABS: ALT 20 U/L (9-52); AST 27 U/L (14-36); African American GFR (CKD) >90 (>60 ml/min/1.73 sqM); Albumin 4.1 g/dL (3.5-5.0); Alkaline Phosphatase 95 U/L (38-126); Anion Gap 9 mmol/L; Blood Urea Nitrogen 17 mg/dL (7-17); Calcium 9.9 mg/dL (8.4-10.2); Carbon Dioxide 27 mmol/L (22-30); Chloride 93 mmol/L (98-107); Glucose 116 mg/dL (74-99); Non-African American GFR(CKD) 87 (>60 ml/min/1.73 sqM); Potassium 4.6 mmol/L (3.5-5.1); Sodium 129 mmol/L (137-145); Total Bilirubin 1.2 mg/dL (0.2-1.3); Total Protein 6.8 g/dL (6.3-8.2)
[2019-05-01 12:40] LABS: Appearance,Urine Clear (Clear); Bilirubin,Urine Negative (Negative); Blood,Urine Negative (Negative); Color,Urine Yellow; Glucose,Urine (UA) Negative (Negative); Ketones,Urine Negative (Negative); Leukocyte Esterase,Urine Negative (Negative); Nitrite,Urine Negative (Negative); PH, Urine 7.5 (5.0-8.0); Protein,Urine Negative (Negative); Specific Gravity,Urine 1.013 (1.001-1.035); Urobilinogen,Urine <2.0 mg/dL (<2.0)
[2019-05-01 13:45] VITALS: BP 105/70; PULSE 95
== END 2019-05-01 13:45 | disposition home or self-care (01) ==
LOC: EC 09:56
DX: R00.2 Palpitations (principal); K21.9 Gastro-esophageal reflux disease without esophagitis; M19.90 Unspecified osteoarthritis, unspecified site; Z79.82 Long term (current) use of aspirin; Z79.899 Other long term (current) drug therapy; Z96.651 Presence of right artificial knee joint; Z86.718 Personal history of other venous thrombosis and embolism; Z87.891 Personal history of nicotine dependence; Z85.828 Personal history of other malignant neoplasm of skin
CPT/HCPCS: 36415; 71046; 80053; 81003; 83735; 84443; 84484; 85025; 85610; 85730; 93005; 96360; 99285

== ENCOUNTER → 2019-05-22 | Outpatient (CLI) | payer MEDICARE, BC ==
--- NOTE | 2019-05-27 13:07 | HM ---
HOLTER MONITOR REPORT Patient was monitored for 24 hours. Baseline rhythm is sinus mechanism with normal conduction. The average rate 82 beats per minute, minimum 54, maximum 142 beats per minute. Ventricular ectopic activity was present in the form of rare single PVCs. Supraventricular ectopic activity was present in the form of occasional single PACs. There were short burst of atrial tachycardia. No diary was available. CONCLUSION: 1. Sinus mechanism baseline rhythm. 2. Rare ventricular ectopic activity. 3. Occasional supraventricular ectopic activity. 4. Short bursts of atrial tachycardia. 5. No diary was available. MMODL / IJN: [id number] /
== END | disposition home or self-care (01) ==
LOC: RADECHMAIN 12:14
PROVIDERS: ATTEND Family Medicine
DX: I47.1 Supraventricular tachycardia (principal)
CPT/HCPCS: 93225; 93226

== ENCOUNTER → 2019-06-28 | Outpatient (CLI) | payer MEDICARE, BC ==
[2019-06-28 19:56] LABS: African American GFR (CKD) 96.2 (60.0-200.0); Albumin 4.9 g/dL (3.80-4.90); Albumin/Globulin Ratio 2.88 (1.60-3.17); Anion Gap 9.7 mmol/L (4.00-12.00); BUN/Creat Ratio 22.86 Ratio (12.00-20.00); Calcium 10.9 mg/dL (8.7-10.3); Carbon Dioxide 28.3 mmol/L (21.6-31.8); Globulin 1.7 g/dL (1.6-3.3); Potassium 4.4 mmol/L (3.5-5.5); Total Bilirubin 0.7 mg/dL (0.2-1.2); Total Protein 6.6 g/dL (6.2-8.2)
== END | disposition home or self-care (01) ==
LOC: LABWHC1 11:58
PROVIDERS: ATTEND Family Medicine
DX: D47.3 Essential (hemorrhagic) thrombocythemia (principal); R53.83 Other fatigue; M25.512 Pain in left shoulder; Z13.6 Encounter for screening for cardiovascular disorders
CPT/HCPCS: 36415; 80053

== ENCOUNTER → 2019-07-05 | Outpatient (CLI) | payer MEDICARE, BC | END | disposition home or self-care (01) | LOC: LABWHC1 13:17 | PROVIDERS: ATTEND Family Medicine | DX: E83.52 Hypercalcemia (principal) | CPT/HCPCS: 36415; 83970 ==

== ENCOUNTER 2021-01-01 17:44 | Observation (INO) | payer MEDICARE, BC ==
[2021-01-01 18:21] LABS: Basophils # (A) 0.1 k/uL (0-0.2); Basophils % (A) 1 %; Eosinophils # (A) 0.1 k/uL (0-0.7); Eosinophils % (A) 1 %; HCT 40.8 % (34.0-46.0); HGB 13.8 gm/dL (11.4-16.0); Lymphocytes # (A) 0.8 k/uL (1.0-4.8); Lymphocytes % (A) 6 %; MCHC 33.8 g/dL (31.0-37.0); MCV 94.7 fL (80.0-100.0); Mean Platelet Volume 7.9; Monocytes # (A) 0.6 k/uL (0-1.0); Monocytes % (A) 4 %; Neutrophils # (A) 12.1 k/uL (1.3-7.7); Neutrophils % (A) 88 %; Platelet Count 355 k/uL (150-450); RBC 4.31 m/uL (3.80-5.40); WBC 13.8 k/uL (3.8-10.6)
[2021-01-01 18:30] LABS: ALT 22 U/L (4-34); AST 51 U/L (14-36); African American GFR (CKD) >90 (>60 ml/min/1.73 sqM); Albumin 4.9 g/dL (3.5-5.0); Alkaline Phosphatase 116 U/L (38-126); Anion Gap 10 mmol/L; Blood Urea Nitrogen 14 mg/dL (7-17); Calcium 10.6 mg/dL (8.4-10.2); Carbon Dioxide 21 mmol/L (22-30); Chloride 98 mmol/L (98-107); Glucose 117 mg/dL (74-99); Magnesium 1.9 mg/dL (1.6-2.3); Non-African American GFR(CKD) 88 (>60 ml/min/1.73 sqM); Partial Thromboplastin Time 27.1 sec (22.0-30.0); Potassium 4.5 mmol/L (3.5-5.1); Prothrombin Time 10.6 sec (9.0-12.0); Sodium 129 mmol/L (137-145); Total Bilirubin 0.7 mg/dL (0.2-1.3); Total Protein 7.4 g/dL (6.3-8.2)
--- NOTE | 2021-01-01 18:30 | XR ---
EXAMINATION TYPE: XR chest 2V DATE OF EXAM: 01/01/2021 COMPARISON: 05/01/2019. HISTORY: Chest pain. TECHNIQUE: Frontal and lateral views of the chest are obtained. FINDINGS: There is no focal air space opacity, pleural effusion, or pneumothorax seen. The cardiac silhouette size is within normal limits. The osseous structures are intact. IMPRESSION: No acute cardiopulmonary process.
--- NOTE | 2021-01-01 19:09 | ED ---
General Adult HPI - General Chief complaint: Chest Pain Stated complaint: High BP/Chest Pressure Time Seen by Provider: 01/01/21 17:53 Source: patient, RN notes reviewed, old records reviewed Mode of arrival: wheelchair Limitations: no limitations - History of Present Illness Initial comments: 80-year-old female who had presented for an episode of chest discomfort, pressure, and upper shoulder discomfort. This occurred just prior to arrival. She had felt some nausea associated with this without vomiting. No diaphoresis. She has a history of hypertension but no history of CAD or prior heart issues. No dyspnea. She's had a mild cough which is nonproductive and has been present for several months. - Related Data Home Medications Medication Instructions Recorded Confirmed Aspirin [Adult Low Dose Aspirin EC] 81 mg PO DAILY 06/26/17 01/01/21 Hydrocodone/Acetaminophen [[place] 1 tab PO Q6HR PRN 06/26/17 01/01/21 7.5-325] Omeprazole [PriLOSEC] 20 mg PO AC-BRKFST 06/26/17 01/01/21 Triamterene-Hctz 37.5-25Mg 1 cap PO DAILY 06/26/17 01/01/21 [Dyazide 37.5-25 Capsule] Benazepril HCl [Lotensin] 40 mg PO BID 05/01/19 01/01/21 Calcium Carbonate [Calcium] 600 mg PO BID 01/01/21 01/01/21 Meloxicam [Mobic] 15 mg PO DAILY 01/01/21 01/01/21 Multivitamins, Thera [Multivitamin 1 tab PO DAILY 01/01/21 01/01/21 (formulary)] Vitamin E 400 unit PO DAILY 01/01/21 01/01/21 Allergies Allergy/AdvReac Type Severity Reaction Status Date / Time No Known Allergies Allergy Verified 01/01/21 18:36 Review of Systems ROS Statement: Those systems with pertinent positive or pertinent negative responses have been documented in the HPI. ROS Other: All systems not noted in ROS Statement are negative. Past Medical History Past Medical History: Asthma, Cancer, Deep Vein Thrombosis (DVT), GERD/Reflux, Hypertension, Osteoarthritis (OA), Skin Disorder Additional Past Medical History / Comment(s): psoriasis, basal cell cancer on fa ce, hypoglycemia History of Any Multi-Drug Resistant Organisms: None Reported Past Surgical History: Joint Replacement, Orthopedic Surgery Additional Past Surgical History / Comment(s): cancer removed from face, neck surgery, carpal tunnel rt elbow, rt knee replacement, artie cataracts Past Anesthesia/Blood Transfusion Reactions: Postoperative Nausea & Vomiting (PONV) Past Psychological History: No Psychological Hx Reported Smoking Status: Never smoker Past Alcohol Use History: Occasional Past Drug Use History: None Reported - Past Family History Brother(s) Family Medical History: Cancer Additional Family Medical History / Comment(s): melanoma General Exam Limitations: no limitations General appearance: alert, in no apparent distress Head exam: Present: atraumatic, normocephalic Eye exam: Present: normal appearance, PERRL ENT exam: Present: normal exam Neck exam: Present: normal inspection. Absent: tenderness, meningismus Respiratory exam: Present: normal lung sounds bilaterally. Absent: respiratory distress, wheezes Cardiovascular Exam: Present: regular rate, normal rhythm GI/Abdominal exam: Present: soft. Absent: distended, tenderness, guarding Extremities exam: Present: normal inspection, normal capillary refill. Absent: pedal edema Neurological exam: Present: alert, oriented X3, CN II-XII intact. Absent: motor sensory deficit Psychiatric exam: Present: normal affect, normal mood Skin exam: Present: warm, dry, intact. Absent: cyanosis, diaphoretic Course Vital Signs 01/01/21 01/01/21 17:49 19:00 Temperature 97.7 F Pulse Rate 74 76 Respiratory 18 18 Rate Blood Pressure 172/97 156/91 O2 Sat by Pulse 97 96 Oximetry EKG Findings - EKG Comments: EKG Findings:: EKG: Normal sinus rhythm, rate of 71, [place] interval 162, QRS duration 98, QTC 432, no ST segment elevation. Medical Decision Making - Medical Decision Making 80-year-old female with no known history of CAD presents for evaluation of chest pain. EKG is sinus rhythm without ST segment elevation. Chest x-rays negative for acute cardiopulmonary findings. She has a leukocytosis of uncertain etiology at 13.8. Sodium 129. Initial troponin is negative. She remains symptom free while in the emergency department. She's given an aspirin. She will be placed in observation for serial cardiac enzymes, telemetry, cardiology consultation. Case discussed with the admitting physician. - Lab Data Result diagrams: 01/01/21 18:11 01/01/21 18:11 Lab Results 01/01/21 01/01/21 01/01/21 Range/Units 18:11 18:11 18:11 WBC 13.8 H (3.8-10.6) k/uL RBC 4.31 (3.80-5.40) m/uL Hgb 13.8 (11.4-16.0) gm/dL Hct 40.8 (34.0-46.0) % MCV 94.7 (80.0-100.0) fL MCH 32.0 (25.0-35.0) pg MCHC 33.8 (31.0-37.0) g/dL RDW 13.0 (11.5-15.5) % Plt Count 355 (150-450) k/uL MPV 7.9 Neutrophils % 88 % Lymphocytes % 6 % Monocytes % 4 % Eosinophils % 1 % Basophils % 1 % Neutrophils # 12.1 H (1.3-7.7) k/uL Lymphocytes # 0.8 L (1.0-4.8) k/uL Monocytes # 0.6 (0-1.0) k/uL Eosinophils # 0.1 (0-0.7) k/uL Basophils # 0.1 (0-0.2) k/uL PT 10.6 (9.0-12.0) sec INR 1.0 (<1.2) APTT 27.1 (22.0-30.0) sec Sodium 129 L (137-145) mmol/L Potassium 4.5 (3.5-5.1) mmol/L Chloride 98 (98-107) mmol/L Carbon Dioxide 21 L (22-30) mmol/L Anion Gap 10 mmol/L BUN 14 (7-17) mg/dL Creatinine 0.57 (0.52-1.04) mg/dL Est GFR (CKD-EPI)AfAm >90 (>60 ml/min/1.73 sqM) Est GFR (CKD-EPI)NonAf 88 (>60 ml/min/1.73 sqM) Glucose 117 H (74-99) mg/dL Calcium 10.6 H (8.4-10.2) mg/dL Magnesium 1.9 (1.6-2.3) mg/dL Total Bilirubin 0.7 (0.2-1.3) mg/dL AST 51 H (14-36) U/L ALT 22 (4-34) U/L Alkaline Phosphatase 116 (38-126) U/L Troponin I (0.000-0.034) ng/mL Total Protein 7.4 (6.3-8.2) g/dL Albumin 4.9 (3.5-5.0) g/dL 01/01/21 Range/Units 18:11 WBC (3.8-10.6) k/uL RBC (3.80-5.40) m/uL Hgb (11.4-16.0) gm/dL Hct (34.0-46.0) % MCV (80.0-100.0) fL MCH (25.0-35.0) pg MCHC (31.0-37.0) g/dL RDW (11.5-15.5) % Plt Count (150-450) k/uL MPV Neutrophils % % Lymphocytes % % Monocytes % % Eosinophils % % Basophils % % Neutrophils # (1.3-7.7) k/uL Lymphocytes # (1.0-4.8) k/uL Monocytes # (0-1.0) k/uL Eosinophils # (0-0.7) k/uL Basophils # (0-0.2) k/uL PT (9.0-12.0) sec INR (<1.2) APTT (22.0-30.0) sec Sodium (137-145) mmol/L Potassium (3.5-5.1) mmol/L Chloride (98-107) mmol/L Carbon Dioxide (22-30) mmol/L Anion Gap mmol/L BUN (7-17) mg/dL Creatinine (0.52-1.04) mg/dL Est GFR (CKD-EPI)AfAm (>60 ml/min/1.73 sqM) Est GFR (CKD-EPI)NonAf (>60 ml/min/1.73 sqM) Glucose (74-99) mg/dL Calcium (8.4-10.2) mg/dL Magnesium (1.6-2.3) mg/dL Total Bilirubin (0.2-1.3) mg/dL AST (14-36) U/L ALT (4-34) U/L Alkaline Phosphatase (38-126) U/L Troponin I <0.012 (0.000-0.034) ng/mL Total Protein (6.3-8.2) g/dL Albumin (3.5-5.0) g/dL Disposition Clinical Impression: Chest pain Disposition: HOME SELF-CARE Condition: Good Is patient prescribed a controlled substance at d/c from ED?: No Referrals: Callie Chawla MD [Primary Care Provider] - 1-2 days Decision to Admit Reason: Admit from EC Decision Date: 01/01/21 Decision Time: 19:24
[2021-01-01] MEDS ORDERED: ASPIRIN 325 MG TAB PO STA (19:14)
[2021-01-01] MEDS ORDERED: NALOXONE 0.4 MG/ML 1 ML VIAL IV PRN (19:21)
[2021-01-01] MEDS ORDERED: ACETAMINOPHEN TAB 325 MG TAB PO PRN (19:21)
[2021-01-01] MEDS: SODIUM CHLORIDE 0.9% 1,000 ML IV SCH (19:55)
[2021-01-02 07:34] VITALS: RESP 18
[2021-01-02] MEDS: SODIUM CHLORIDE 0.9% 1,000 ML IV SCH ×2 (08:20→23:13)
[2021-01-02 08:37] LABS: Basophils % (A) 1 %; Eosinophils # (A) 0.1 k/uL (0-0.7); Eosinophils % (A) 2 %; HGB 12.9 gm/dL (11.4-16.0); Lymphocytes # (A) 0.6 k/uL (1.0-4.8); Lymphocytes % (A) 9 %; MCH 32.2 pg (25.0-35.0); MCHC 33.1 g/dL (31.0-37.0); MCV 97.1 fL (80.0-100.0); Mean Platelet Volume 8.2; Monocytes # (A) 0.1 k/uL (0-1.0); Monocytes % (A) 2 %; Neutrophils # (A) 5.5 k/uL (1.3-7.7); Neutrophils % (A) 86 %; Platelet Count 320 k/uL (150-450); RBC 4.01 m/uL (3.80-5.40); RDW 13.1 % (11.5-15.5); WBC 6.3 k/uL (3.8-10.6)
[2021-01-02 08:51] LABS: African American GFR (CKD) >90 (>60 ml/min/1.73 sqM); Anion Gap 7 mmol/L; Blood Urea Nitrogen 11 mg/dL (7-17); Calcium 9.7 mg/dL (8.4-10.2); Carbon Dioxide 27 mmol/L (22-30); Chloride 99 mmol/L (98-107); Glucose 112 mg/dL (74-99); Non-African American GFR(CKD) 86 (>60 ml/min/1.73 sqM); Potassium 3.6 mmol/L (3.5-5.1); Sodium 133 mmol/L (137-145)
--- NOTE | 2021-01-02 10:05 | P.HPIM ---
History of Present Illness This is a pleasant 80 years old female with past medical history of DVT, asthma, GERD, hypertension, osteoarthritis, psoriasis. She was going to the beach yesterday when she started feeling some discomfort in her epigastric area, she wanted that checked her blood pressure and was fine, then went to the bathroom and after came back she checked it again it was high but she could not remember the numbers her pain described by her as ache or discomfort rather than pain, rated as 2-3/10, nonspecific and she felt it across her back as well but all improved and done once she received IV fluids Patient denies abdominal pain, no nausea vomiting. No fever. No diarrhea. She thought she was drinking enough but looks like not really She denies urinary symptoms. She denies smoking, illicit drugs or alcohol only occasionally Vitals are stable and patient is afebrile. blood pressure on admission was 172/97, and 156/91. Currently blood pressure is 163/79 however last night was 118/65. Labs showed mild leukocytosis of 13.8 K. INR is 1.0, sodium is low at 129. Calcium 10.6, troponin are negative 3 with less than 0.012 EKG showing normal sinus rhythm at [address]-T changes Chest x-ray: No acute process. N emergency room patient was started on aspirin, normal sinus 75 mL/h and cardiology team consulted Review of Systems CONSTITUTIONAL: No fever, no malaise, no fatigue. HEENT: No recent visual problems or hearing problems. Denied any sore throat. CARDIOVASCULAR: No orthopnea, PND, no palpitations, no syncope. PULMONARY: No shortness of breath, no cough, no hemoptysis. GASTROINTESTINAL: No diarrhea, no nausea, no vomiting, no abdominal pain. Normoactive bowel sounds. NEUROLOGICAL: No headaches, no weakness, no numbness. HEMATOLOGICAL: Denies any bleeding or petechiae. GENITOURINARY: Denies any burning micturition, frequency, or urgency. MUSCULOSKELETAL/RHEUMATOLOGICAL: Denies any joint pain, swelling, or any muscle pain. ENDOCRINE: Denies any polyuria or polydipsia. Past Medical History Past Medical History: Asthma, Cancer, Deep Vein Thrombosis (DVT), GERD/Reflux, Hypertension, Osteoarthritis (OA), Skin Disorder Additional Past Medical History / Comment(s): psoriasis, basal cell cancer on face, hypoglycemia History of Any Multi-Drug Resistant Organisms: None Reported Past Surgical History: Joint Replacement, Orthopedic Surgery Additional Past Surgical History / Comment(s): cancer removed from face, neck mack rgery, carpal tunnel rt elbow, rt knee replacement, artie cataracts Past Anesthesia/Blood Transfusion Reactions: Postoperative Nausea & Vomiting (PONV) Past Psychological History: No Psychological Hx Reported Smoking Status: Never smoker Past Alcohol Use History: Occasional Additional Past Alcohol Use History / Comment(s): smoked as teen for 2-3 yrs Past Drug Use History: None Reported - Past Family History Brother(s) Family Medical History: Cancer Additional Family Medical History / Comment(s): melanoma Medications and Allergies Home Medications Medication Instructions Recorded Confirmed Type Aspirin [Adult Low Dose Aspirin EC] 81 mg PO DAILY 06/26/17 01/01/21 History Hydrocodone/Acetaminophen [[place] 1 tab PO Q6HR PRN 06/26/17 01/01/21 History 7.5-325] Omeprazole [PriLOSEC] 20 mg PO AC-BRKFST 06/26/17 01/01/21 History Triamterene-Hctz 37.5-25Mg 1 cap PO DAILY 06/26/17 01/01/21 History [Dyazide 37.5-25 Capsule] Benazepril HCl [Lotensin] 40 mg PO BID 05/01/19 01/01/21 History Calcium Carbonate [Calcium] 600 mg PO BID 01/01/21 01/01/21 History Meloxicam [Mobic] 15 mg PO DAILY 01/01/21 01/01/21 History Multivitamins, Thera [Multivitamin 1 tab PO DAILY 01/01/21 01/01/21 History (formulary)] Vitamin E 400 unit PO DAILY 01/01/21 01/01/21 History Allergies Allergy/AdvReac Type Severity Reaction Status Date / Time No Known Allergies Allergy Verified 01/01/21 18:36 Physical Exam Vitals: Vital Signs Temp Pulse Pulse Resp BP BP Pulse Ox 01/02/21 07:35 73 18 01/02/21 07:00 98.2 F 73 18 163/79 98 01/02/21 03:59 97.8 F 69 16 135/60 100 01/01/21 23:19 97.9 F 72 14 118/65 97 01/01/21 21:23 72 128/79 01/01/21 20:30 18 07/30/21 20:10 97.7 F 72 18 152/82 97 01/01/21 19:00 76 18 156/91 96 01/01/21 17:49 97.7 F 74 18 172/97 97 Intake and Output 01/01/21 01/02/21 01/02/21 22:59 06:59 14:59 Intake Total 600 Balance 600 Intake: Oral 600 Other: Voiding Method Toilet # Voids 1 1 Weight 63.503 kg GENERAL: The patient is alert and oriented x3, not in any acute distress. Well developed, well nourished. HEENT: Pupils are round and equally reacting to light. EOMI. No scleral icterus. No conjunctival pallor. Normocephalic, atraumatic. No pharyngeal erythema. No thyromegaly. CARDIOVASCULAR: S1 and S2 present. No murmurs, rubs, or gallops. PULMONARY: Chest is clear to auscultation, no wheezing or crackles. ABDOMEN: Soft, nontender, nondistended, normoactive bowel sounds. No palpable organomegaly. MUSCULOSKELETAL: No joint swelling or deformity. EXTREMITIES: No cyanosis, clubbing, or pedal edema. NEUROLOGICAL: Gross neurological examination did not reveal any focal deficits. SKIN: No rashes. No petechiae Results CBC & Chem 7: 01/02/21 08:20 01/02/21 08:20 Labs: Abnormal Lab Results - Last 24 Hours (Table) 01/01/21 01/01/21 Range/Units 18:11 18:11 WBC 13.8 H (3.8-10.6) k/uL Neutrophils # 12.1 H (1.3-7.7) k/uL Lymphocytes # 0.8 L (1.0-4.8) k/uL Sodium 129 L (137-145) mmol/L Carbon Dioxide 21 L (22-30) mmol/L Glucose 117 H (74-99) mg/dL Calcium 10.6 H (8.4-10.2) mg/dL AST 51 H (14-36) U/L Thrombosis Risk Factor Assmnt - Choose All That Apply Any of the Below Risk Factors Present?: Yes Each Factor Represents 1 point: Obesity (BMI >25) Each Risk Factor Represents 3 Points: Age 75 years or older Other congenital or acquired thrombophilia - If yes, enter type in comment: No Thrombosis Risk Factor Assessment Total Risk Factor Score: 4 Thrombosis Risk Factor Assessment Level: Moderate Risk Assessment and Plan Assessment: Epigastric pain or discomfort rule out cardiac causes Hypertension History of asthma History of GERD History of DVT History of osteoarthritis History of psoriasis Plan: This is a pleasant 80 years old female who presents with chest pain. Continue serial troponin, echocardiogram. Cardiology consult and aspirating Check hemoglobin A1c Patient was counseled about the proper way check and blood pressure Labs and medication were reviewed.. Continue same treatment. Continue with symptomatic treatment. Resume home medication. Monitor lytes and vitals. DVT and GI prophylaxis. Further recommendations depends on the clinical course of the patient DVT prophylaxis: Subcutaneous heparin GI Prophylaxis: Pepcid
--- NOTE | 2021-01-02 11:08 | P.CRDCN ---
History of Present Illness History of present illness: HISTORY OF PRESENTING ILLNESS Patient is a pleasant 80-year-old female with history of hypertension, GERD, psoriasis, prior DVT during who presents secondary to chest pressure sensation. Patient states she was going to the beach and had been eating a [place] when she started to develop a chest pressure sensation which felt like her bra was tightened. Patient denies any associated shortness breath, nausea, diaphoresis. She therefore went home and checked her blood pressure and had numerous blood pressure readings which were elevated and therefore decided to come emergency department. Patient's chest pressure slowly resolved in emergency department. She denies any similar episodes. She denies any association with any exertion. She did get somewhat nauseous approximately 8 hours until her admission however attributes this to taking aspirin on an empty stomach. Currently she feels back to her normal self. Blood work was performed with white blood cell count 13.8, hemoglobin 13.8, platelets 355, troponin normal 3, calcium 10.6, sodium 129, bicarb 21. Her sodium was improved to 133 today, calcium improved to 9.7, white blood cell count normal. She denies any prior cardiac workup. She has not seen a lineman service or work dispatcher. She does have a chronic cough which may be related to the benazepril. We will changes to losartan. REVIEW OF SYSTEMS At the time of my exam: CONSTITUTIONAL: Denies fever or chills. CARDIOVASCULAR: +chest pain, no shortness of breath, orthopnea, PND or palpitations. RESPIRATORY: Denies cough. GASTROINTESTINAL: Denies abdominal pain, diarrhea, constipation, nausea or vomiting. MUSCULOSKELETAL: Denies myalgias. NEUROLOGIC: Denies numbness, tingling or weakness. ENDOCRINE: Denies fatigue, weight change, polydipsia or polyurina. GENITOURINARY: Denies burning, hematuria or urgency with micturation. HEMATOLOGIC: Denies history of anemia or bleeding. PHYSICAL EXAMINATION Vital signs reviewed. CONSTITUTIONAL: No apparent distress. HEENT: Head is normocephalic. Pupils are equal, round. Sclerae anicteric. Mucous membranes of the mouth are moist. No JVD. No carotid bruit. CHEST EXAMINATION: Lungs are clear to auscultation. No chest wall tenderness is noted on palpation or with deep breathing. HEART EXAMINATION: Regular rate and rhythm. S1, S2 heard. No murmurs, gallops or rub. ABDOMEN: Soft, nontender. Positive bowel sounds. EXTREMITIES: 2+ peripheral pulses, no lower extremity edema and no calf tenderness. NEUROLOGIC EXAMINATION: Patient is awake, alert and oriented x3. ASSESSMENT 1. Atypical chest pressure area troponins normal 3 and do not suspect acute coronary syndrome. Currently chest pain-free. He had been a viral process with mildly elevated white blood cell count and some dehydration. 2. Essential hypertension, currently improved 3. 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 History of psoriasis 5. History of DVT during 6. Hyponatremia, improved with IV fluid hydration PLAN Patient's chest pressure is atypical. Troponins normal 3. We will check 2-D echo and if echo unrevealing, patient may be discharged home from a cardiology standpoint. Patient's presentation may have been related to some sort of viral process with some additional nausea. Patient did have mild increased white blood cell count and what appears to be some dehydration. She appears improved today without any chest pain. Outpatient follow-up in 1 week. We will change benazepril to losartan 100 mg daily given her chronic cough which is likely related to VICKIE inhibitor. Past Medical History Past Medical History: Asthma, Cancer, Deep Vein Thrombosis (DVT), GERD/Reflux, Hypertension, Osteoarthritis (OA), Skin Disorder Additional Past Medical History / Comment(s): psoriasis, basal cell cancer on face, hypoglycemia History of Any Multi-Drug Resistant Organisms: None Reported Past Surgical History: Joint Replacement, Orthopedic Surgery Additional Past Surgical History / Comment(s): cancer removed from face, neck surgery, carpal tunnel rt elbow, rt knee replacement, artie cataracts Past Anesthesia/Blood Transfusion Reactions: Postoperative Nausea & Vomiting (PONV) Past Psychological History: No Psychological Hx Reported Smoking Status: Never smoker Past Alcohol Use History: Occasional Additional Past Alcohol Use History / Comment(s): smoked as teen for 2-3 yrs Past Drug Use History: None Reported - Past Family History Brother(s) Family Medical History: Cancer Additional Family Medical History / Comment(s): melanoma Medications and Allergies Home Medications Medication Instructions Recorded Confirmed Type Aspirin [Adult Low Dose Aspirin EC] 81 mg PO DAILY 06/26/17 01/01/21 History Hydrocodone/Acetaminophen [[place] 1 tab PO Q6HR PRN 06/26/17 01/01/21 History 7.5-325] Omeprazole [PriLOSEC] 20 mg PO AC-BRKFST 06/26/17 01/01/21 History Triamterene-Hctz 37.5-25Mg 1 cap PO DAILY 06/26/17 01/01/21 History [Dyazide 37.5-25 Capsule] Benazepril HCl [Lotensin] 40 mg PO BID 05/01/19 01/01/21 History Calcium Carbonate [Calcium] 600 mg PO BID 01/01/21 01/01/21 History Meloxicam [Mobic] 15 mg PO DAILY 01/01/21 01/01/21 History Multivitamins, Thera [Multivitamin 1 tab PO DAILY 01/01/21 01/01/21 History (formulary)] Vitamin E 400 unit PO DAILY 01/01/21 01/01/21 History Allergies Allergy/AdvReac Type Severity Reaction Status Date / Time No Known Allergies Allergy Verified 01/01/21 18:36 Physical Exam Vitals: Vital Signs Temp Pulse Pulse Resp BP BP Pulse Ox 01/02/21 07:35 73 18 01/02/21 07:00 98.2 F 73 18 163/79 98 01/02/21 03:59 97.8 F 69 16 135/60 100 01/01/21 23:19 97.9 F 72 14 118/65 97 01/01/21 21:23 72 128/79 01/01/21 20:30 18 01/01/21 20:10 97.7 F 72 18 152/82 97 01/01/21 19:00 76 18 156/91 96 01/01/21 17:49 97.7 F 74 18 172/97 97 Intake and Output 01/01/21 01/02/21 01/02/21 22:59 06:59 14:59 Intake Total 600 Balance 600 Intake: Oral 600 Other: Voiding Method Toilet # Voids 1 1 Weight 63.503 kg Results 01/02/21 08:20 01/02/21 08:20 Cardiac Enzymes 01/01/21 01/01/21 01/01/21 Range/Units 18:11 18:11 21:03 AST 51 H (14-36) U/L Troponin I <0.012 <0.012 (0.000-0.034) ng/mL 01/02/21 Range/Units 00:41 AST (14-36) U/L Troponin I <0.012 (0.000-0.034) ng/mL Coagulation 01/01/21 Range/Units 18:11 PT 10.6 (9.0-12.0) sec APTT 27.1 (22.0-30.0) sec CBC 01/01/21 01/02/21 Range/Units 18:11 08:20 WBC 13.8 H 6.3 (3.8-10.6) k/uL RBC 4.31 4.01 (3.80-5.40) m/uL Hgb 13.8 12.9 (11.4-16.0) gm/dL Hct 40.8 39.0 (34.0-46.0) % Plt Count 355 320 (150-450) k/uL Comprehensive Metabolic Panel 01/01/21 01/02/21 Range/Units 18:11 08:20 Sodium 129 L 133 L (137-145) mmol/L Potassium 4.5 3.6 (3.5-5.1) mmol/L Chloride 98 99 (98-107) mmol/L Carbon Dioxide 21 L 27 (22-30) mmol/L BUN 14 11 (7-17) mg/dL Creatinine 0.57 0.61 (0.52-1.04) mg/dL Glucose 117 H 112 H (74-99) mg/dL Calcium 10.6 H 9.7 (8.4-10.2) mg/dL AST 51 H (14-36) U/L ALT 22 (4-34) U/L Alkaline Phosphatase 116 (38-126) U/L Total Protein 7.4 (6.3-8.2) g/dL Albumin 4.9 (3.5-5.0) g/dL Current Medications Generic Name Dose Route Start Last Admin Trade Name Freq PRN Reason Stop Dose Admin Acetaminophen 650 mg 01/01/21 19:21 Acetaminophen Tab 325 Mg Tab PO Q6HR PRN Mild Pain or Fever > 100.5 Sodium Chloride 1,000 mls @ 75 mls/hr 01/01/21 19:30 01/02/21 08:20 Saline 0.9% IV 75 mls/hr .[id number] [id number] Administration Naloxone HCl 0.2 mg 01/01/21 19:21 Naloxone 0.4 Mg/Ml 1 Ml Vial IV Q2M PRN Opioid Reversal Intake and Output 01/01/21 01/02/21 01/02/21 22:59 06:59 14:59 Intake Total 600 Balance 600 Intake: Oral 600 Other: Voiding Method Toilet # Voids 1 1 Weight 63.503 kg 01/02/21 08:20 01/02/21 08:20
[2021-01-02] MEDS: LOSARTAN 50 MG TAB PO SCH (11:17)
[2021-01-02 13:46] LABS: Hemoglobin A1C 5.5 % (4.0-6.0)
--- NOTE | 2021-01-02 17:44 | ECHOF ---
Referral Reason:re: LV function MEASUREMENTS -------- HEIGHT: 152.4 cm WEIGHT: 63.5 kg BP: 163/79 RVIDd: 3.2 cm (< 3.3) IVSd: 1.2 cm (0.6 - 1.1) LVIDd: 3.6 cm (3.9 - 5.3) LVPWd: 1.1 cm (0.6 - 1.1) IVSs: 1.5 cm LVIDs: 2.2 cm LVPWs: 1.3 cm LA Diam: 3.5 cm (2.7 - 3.8) LAESV Index (A-L): 28.17 ml/m Ao Diam: 3.0 cm (2.0 - 3.7) AV Cusp: 2.0 cm (1.5 - 2.6) MV EXCURSION: 13.059 mm (> 18.000) MV EF SLOPE: 44 mm/s (70 - 150) EPSS: 0.4 cm MV E Gabino: 0.95 m/s MV DecT: 234 ms MV A [place]: 1.18 m/s MV E/A Ratio: 0.81 RAP: 5.00 mmHg RVSP: 31.74 mmHg FINDINGS -------- Sinus rhythm. This was a technically good study. The left ventricular size is normal. There is borderline concentric left ventricular hypertrophy. Overall left ventricular systolic function is normal with, an EF between 60 - 65 %. The right ventricle is normal in size. Normal LA size by volume 22+/-6 ml/m2. The right atrium is normal in size. Interatrial and interventricular septum intact. Aortic valve is trileaflet and is mildly thickened. There is a 0.5cm x 0.5cm echodensity which appe ars suprannular of the aortic valve and most consistent with artifact. Mild mitral annular calcification present. There is trace to mild mitral regurgitation. Mild tricuspid regurgitation present. Right ventricular systolic pressure is normal at < 35 mmHg. Trace/mild (physiologic) pulmonic regurgitation. The aortic root size is normal. Normal inferior vena cava with normal inspiratory collapse consistent with estimated right atrial pre ssure of 5 mmHg. There is no pericardial effusion. CONCLUSIONS -------- 1. The left ventricular size is normal. 2. There is borderline concentric left ventricular hypertrophy. 3. Overall left ventricular systolic function is normal with, an EF between 60 - 65 %. 4. Aortic valve is trileaflet and is mildly thickened. 5. There is a 0.5cm x 0.5cm echodensity which appears suprannular of the aortic valve and most consis tent with artifact. 6. Mild mitral annular calcification present. 7. There is trace to mild mitral regurgitation. 8. Mild tricuspid regurgitation present. 9. Trace/mild (physiologic) pulmonic regurgitation. 10. There is no pericardial effusion. [employer]IOR [employer] OFFICER: Kendy Thompson RDCS
[2021-01-02] MEDS: LIDOCAINE 5% PATCH TOPICAL SCH (23:12)
[2021-01-03 07:43] VITALS: BP 132/97; PULSE 93; TEMP 98.3
[2021-01-03] MEDS: LOSARTAN 50 MG TAB PO SCH (07:45)
[2021-01-03] MEDS: LIDOCAINE 5% PATCH TOPICAL SCH (07:47)
[2021-01-03] MEDS ORDERED: TRIAMTERENE-HCTZ 37.5-25MG 1 EACH CAP PO SCH (09:00)
--- NOTE | 2021-01-03 11:25 | P.PN ---
Subjective HISTORY OF PRESENTING ILLNESS Patient is a pleasant 80-year-old female with history of hypertension, GERD, psoriasis, prior DVT during who presents secondary to chest pressure sensation. Patient states she was going to the beach and had been eating a [place] when she started to develop a chest pressure sensation which felt like her bra was tightened. Patient denies any associated shortness breath, nausea, diaphoresis. She therefore went home and checked her blood pressure and had numerous blood pressure readings which were elevated and therefore decided to come emergency department. Patient's chest pressure slowly resolved in em ergency department. She denies any similar episodes. She denies any association with any exertion. She did get somewhat nauseous approximately 8 hours until her admission however attributes this to taking aspirin on an empty stomach. Currently she feels back to her normal self. Blood work was performed with white blood cell count 13.8, hemoglobin 13.8, platelets 355, troponin normal 3, calcium 10.6, sodium 129, bicarb 21. Her sodium was improved to 133 today, calcium improved to 9.7, white blood cell count normal. She denies any prior cardiac workup. She has not seen a emissions engineer. She does have a chronic cough which may be related to the benazepril. We will changes to losartan. 01/03 Patient seen and examined. Echocardiogram performed yesterday which showed ejection fraction 60-65%. There was echo density around the aortic valve however felt most likely related to artifact, less likely fibroblastoma however does not appear that way. No history of stroke or any other embolic etiology. No more CP. REVIEW OF SYSTEMS At the time of my exam: CONSTITUTIONAL: Denies fever or chills. CARDIOVASCULAR: +chest pain, no shortness of breath, orthopnea, PND or palpitations. RESPIRATORY: Denies cough. GASTROINTESTINAL: Denies abdominal pain, diarrhea, constipation, nausea or v omiting. MUSCULOSKELETAL: Denies myalgias. NEUROLOGIC: Denies numbness, tingling or weakness. ENDOCRINE: Denies fatigue, weight change, polydipsia or polyurina. GENITOURINARY: Denies burning, hematuria or urgency with micturation. HEMATOLOGIC: Denies history of anemia or bleeding. PHYSICAL EXAMINATION Vital signs reviewed. CONSTITUTIONAL: No apparent distress. HEENT: Head is normocephalic. Pupils are equal, round. Sclerae anicteric. Mucous membranes of the mouth are moist. No JVD. No carotid bruit. CHEST EXAMINATION: Lungs are clear to auscultation. No chest wall tenderness is noted on palpation or with deep breathing. HEART EXAMINATION: Regular rate and rhythm. S1, S2 heard. No murmurs, gallops or rub. ABDOMEN: Soft, nontender. Positive bowel sounds. EXTREMITIES: 2+ peripheral pulses, no lower extremity edema and no calf tenderness. NEUROLOGIC EXAMINATION: Patient is awake, alert and oriented x3. ASSESSMENT 1. Atypical chest pressure area troponins normal 3 and do not suspect acute coronary syndrome. Currently chest pain-free. May have been a viral process with mildly elevated white blood cell count and some dehydration. 2. Essential hypertension, currently improved 3. 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 History of psoriasis 5. History of DVT during 6. Hyponatremia, improved with IV fluid hydration PLAN No further chest pain. Echo shows preserved ejection fraction. Patient stable for discharge. Outpatient follow-up in 1 week. We will change benazepril to losartan 100 mg daily given her chronic cough which is likely related to VICKIE inhibitor. Objective - Vital Signs Vital signs: Vital Signs Temp 98.3 F 01/03/21 07:00 Pulse 93 01/03/21 08:00 Resp 18 01/03/21 08:00 BP 132/97 01/03/21 07:00 Pulse Ox 94 L 01/03/21 07:00 Intake & Output 01/02/21 01/03/21 01/03/21 18:59 06:59 18:59 Intake Total 480 540 Balance 480 540 Intake: Oral 480 540 Other: Voiding Method Toilet Toilet Toilet # Voids 2 1 1 - Labs CBC & Chem 7: 01/02/21 08:20 01/02/21 08:20
--- NOTE | 2021-01-03 23:18 | P.DS ---
Providers Date of admission: 01/01/21 19:21 Attending physician: Cricket Hernandez Consults: 01/01/21 19:22 Consult Physician Routine Consulting Provider: Eliezer Reilly Consult Reason/Comments: CP rule out Do you want consulting provider notified?: Yes Primary care physician: Callie Chawla Hospital Course: Diagnoses: Epigastric pain or discomfort . Cardiac causes ruled out. Improved today causes Hypertension dry cough secondary to medication of benazepri, which is wished losartan upon discharge History of asthma History of GERD History of DVT History of osteoarthritis History of psoriasis Hospital course: This is a pleasant 80 years old female with past medical history of DVT, asthma, GERD, hypertension, osteoarthritis, psoriasis. She was going to the beach one day earlier when she started feeling some discomfort in her epigastric area, she was admitted evaluated by engineering leader. Epigastric discomfort completely resolved, and states she is back to his normal self She denies dyspnea, no abdominal pain, no nausea vomiting. No change in urine or bowel habits. No fever engineering leader and cleared her for discharge and follow-up as an outpatient, patient is asymptomatic today and she is back to his normal self and she wants to go home Problems and management plan were discussed with the patient and he verbalized understanding and acceptance Patient was found stable and can be discharged home however he needs follow-up as an outpatient. Patient was instructed to follow up with PCP Dr. Ledesma about within one week and patient agrees Patient was instructed to follow up with Dr. Reilly in 1 week, she was instructed to call and make her own appointment as today is weekend and she understands Physical exam Gen: patient is a AAOx3, no distress CVS: S1-S2, RRR, no murmur Lungs: B/L CTA, no wheezing Abdomen: soft, no distention, no tenderness, positive bowel sounds Extremity: no leg edema or induration Time spent more than 35 minutes Patient Condition at Discharge: Good Plan - Discharge Summary Discharge Rx Participant: No New Discharge Prescriptions: New Losartan [Cozaar] 100 mg PO DAILY #60 tab Continue Triamterene-Hctz 37.5-25Mg [Dyazide 37.5-25 Capsule] 1 cap PO DAILY Omeprazole [PriLOSEC] 20 mg PO AC-BRKFST Aspirin [Adult Low Dose Aspirin EC] 81 mg PO DAILY Calcium Carbonate [Calcium] 600 mg PO BID Multivitamins, Thera [Multivitamin (formulary)] 1 tab PO DAILY Vitamin E 400 unit PO DAILY Discontinued Hydrocodone/Acetaminophen [[place] 7.5-325] 1 tab PO Q6HR PRN PRN Reason: Pain Benazepril HCl [Lotensin] 40 mg PO BID Meloxicam [Mobic] 15 mg PO DAILY Discharge Medication List Aspirin [Adult Low Dose Aspirin EC] 81 mg PO DAILY 06/26/17 [History] Omeprazole [PriLOSEC] 20 mg PO AC-BRKFST 06/26/17 [History] Triamterene-Hctz 37.5-25Mg [Dyazide 37.5-25 Capsule] 1 cap PO DAILY 06/26/17 [History] Calcium Carbonate [Calcium] 600 mg PO BID 01/01/21 [History] Multivitamins, Thera [Multivitamin (formulary)] 1 tab PO DAILY 01/01/21 [History] Vitamin E 400 unit PO DAILY 01/01/21 [History] Losartan [Cozaar] 100 mg PO DAILY #60 tab 01/03/21 [Rx] Follow up Appointment(s)/Referral(s): Callie Chawla MD [Primary Care Provider] - 1-2 days Eliezer Reilly DO [STAFF PHYSICIAN] - 1 Week Patient Instructions/Handouts: Low-Sodium Diet (DC), Hypertension (DC) Activity/Diet/Wound Care/Special Instructions: Heart healthy diet Activity is limited till you see your doctor Discharge Disposition: HOME SELF-CARE
== END 2021-01-03 12:31 | disposition home or self-care (01) ==
LOC: EC 17:44 → UNDOADMOB 19:21 → 3SCARD 19:21 → INTOOBSV 19:21 → 6NMEDSUR 19:21 → 3SCARD 20:13
PROVIDERS: ADMIT Internal Medicine; ATTEND Internal Medicine
DX: R10.13 Epigastric pain (principal); I10 Essential (primary) hypertension; E87.1 Hypo-osmolality and hyponatremia; J45.909 Unspecified asthma, uncomplicated; Z79.1 Long term (current) use of non-steroidal anti-inflammatories (NSAID); Z79.82 Long term (current) use of aspirin; Z80.8 Family history of malignant neoplasm of other organs or systems; Z85.828 Personal history of other malignant neoplasm of skin; Z86.718 Personal history of other venous thrombosis and embolism; Z96.651 Presence of right artificial knee joint
CPT/HCPCS: 99285; 96360; 96361; 36415; 93005; 93306; 80053; 80048; 83735; 84484 ×2; 85025 ×2; 85610; 85730; 83036; 71046; G0378 ×3

== ENCOUNTER → 2021-06-24 | Outpatient (CLI) | payer MEDICARE, BC ==
[2021-06-24 13:52] LABS: Basophils % (A) 0 %; Eosinophils # (A) 0.1 k/uL (0-0.7); Eosinophils % (A) 1 %; HCT 41.7 % (34.0-46.0); HGB 13.3 gm/dL (11.4-16.0); Lymphocytes # (A) 0.8 k/uL (1.0-4.8); Lymphocytes % (A) 10 %; MCH 30.8 pg (25.0-35.0); MCHC 31.9 g/dL (31.0-37.0); MCV 96.7 fL (80.0-100.0); Mean Platelet Volume 8.6; Monocytes # (A) 0.5 k/uL (0-1.0); Monocytes % (A) 7 %; Neutrophils # (A) 6.2 k/uL (1.3-7.7); Neutrophils % (A) 80 %; Platelet Count 318 k/uL (150-450); RBC 4.31 m/uL (3.80-5.40); RDW 13.5 % (11.5-15.5); WBC 7.8 k/uL (3.8-10.6)
[2021-06-24 14:03] LABS: Partial Thromboplastin Time 26.7 sec (22.0-30.0); Prothrombin Time 10.4 sec (9.0-12.0)
[2021-06-24 14:09] LABS: Appearance,Urine Clear (Clear); Bilirubin,Urine Negative (Negative); Blood,Urine Negative (Negative); Color,Urine Yellow; Glucose,Urine (UA) Negative (Negative); Ketones,Urine Negative (Negative); Leukocyte Esterase,Urine Negative (Negative); Nitrite,Urine Negative (Negative); PH, Urine 7.5 (5.0-8.0); Protein,Urine Negative (Negative); Specific Gravity,Urine 1.012 (1.001-1.035); Urobilinogen,Urine <2.0 mg/dL (<2.0)
[2021-06-25 03:52] LABS: African American GFR (CKD) 99.8 (60.0-200.0); Albumin 4.8 g/dL (3.8-4.9); Albumin/Globulin Ratio 2.29 (1.60-3.17); Anion Gap 14.6 mmol/L (10.00-18.00); BUN/Creat Ratio 18.67 Ratio (12.00-20.00); Blood Urea Nitrogen 11.2 mg/dL (9.0-27.0); Calcium 10.3 mg/dL (8.7-10.3); Carbon Dioxide 24.4 mmol/L (20.0-27.5); Globulin 2.1 g/dL (1.6-3.3); Non-African American GFR(CKD) 86.1 (60.0-200.0); Total Bilirubin 0.7 mg/dL (0.30-1.20); Total Protein 6.9 g/dL (6.2-8.2)
== END | disposition home or self-care (01) ==
LOC: LABPAT 10:57
PROVIDERS: ATTEND Orthopaedic Surgery
DX: Z01.812 Encounter for preprocedural laboratory examination (principal); M16.11 Unilateral primary osteoarthritis, right hip
CPT/HCPCS: 80053; 81003; 85025; 85610; 85730; 87070; 93005

== ENCOUNTER 2021-07-06 08:02 | Day surgery (SDC) | payer MEDICARE, BC ==
[2021-07-01 14:06] VITALS: BMI 27.1
[~2021-07-06 08:02] MED LIST changes: -ACETAMINOPHEN TAB 500 MG TAB PO ONE; +ACETAMINOPHEN TAB 500 MG TAB PO PRN; -BISACODYL 10 MG SUPP RECTAL PRN; -DEXAMETHASONE SOD PHOSPHATE 10 MG/ML 1 ML VIAL IV ONE; +DEXAMETHASONE SOD PHOSPHATE 4 MG/ML 1 ML VIAL IV ONE; -DIAZEPAM 5 MG TAB PO PRN; -GABAPENTIN 300 MG CAP PO ONE; +GABAPENTIN 300 MG CAP PO PRN; -HYDROcodone/APAP 7.5-325MG 1 EACH TAB PO PRN; +LACTATED RINGERS 1,000 ML IV SCH; +LIDOCAINE 1% (10MG/ML) FOR IV START INTRADERMA PRN; -MAGNESIUM HYDROXIDE 2,400 MG/10 ML CUP PO PRN; -MELOXICAM 7.5 MG TAB PO ONE; +MELOXICAM 7.5 MG TAB PO PRN; -MIDAZOLAM 2 MG/2 ML VIAL IV PRN; -NA PHOS,M-B/NA PHOS,DI-BA 133 ML ENEMA RECTAL PRN; -NALOXONE 0.4 MG/ML 1 ML VIAL IV PRN; -ONDANSETRON 4 MG/2 ML VIAL IVP PRN; -ROPIVACAINE 246.25 MG, EPINEPHrine 0.5 MG, KETOROLAC 30 MG, cloNIDine HCL/PF 80 MCG, WA... MISCELLANE ONE; -TRANEXAMIC ACID 1,000 MG in SODIUM CHLORIDE 0.9% 100 ML IVPB ONE; +TRANEXAMIC ACID 1,000 MG in SODIUM CHLORIDE 0.9% 100 ML IVPB PRN
[2021-07-06] MEDS ORDERED: NALOXONE 0.4 MG/ML 1 ML VIAL IV PRN (08:49)
[2021-07-06] MEDS ORDERED: HYDROmorphone 0.2 MG/1 ML SYRINGE IVP PRN (08:49)
[2021-07-06] MEDS ORDERED: HYDROmorphone 0.5 MG/0.5 ML SYRINGE IVP PRN ×2 (08:49)
[2021-07-06] MEDS ORDERED: ONDANSETRON 4 MG/2 ML VIAL IVP PRN (08:49)
[2021-07-06] MEDS ORDERED: HYDROcodone/APAP 7.5-325MG 1 EACH TAB PO PRN ×2 (08:51)
[2021-07-06] MEDS ORDERED: SODIUM CHLORIDE 0.9% 1,000 ML IV SCH (09:00)
[2021-07-06] MEDS ORDERED: SUCCINYLCHOLINE CHLORIDE 100 MG/5 ML SYR IV ONE (09:17)
[2021-07-06] MEDS ORDERED: fentaNYL (PF) 50 MCG/ML 2 ML AMP ONE (09:17)
[2021-07-06] MEDS ORDERED: ROCURONIUM 10 MG/ML (5 ML VIAL) IV ONE (09:17)
[2021-07-06] MEDS ORDERED: LIDOCAINE 1% INJ 10MG/ML (20 ML MDV) ONE (09:17)
[2021-07-06] MEDS ORDERED: PROPOFOL 10 MG/ML 20 ML VIAL IV ONE (09:17)
[2021-07-06] MEDS ORDERED: SODIUM CHLORIDE 0.9% 100 ML BAG ONE (09:17)
[2021-07-06] MEDS ORDERED: TRANEXAMIC ACID 1,000 MG/10 ML VIAL ONE (09:17)
[2021-07-06] MEDS ORDERED: ROPIVACAINE 5 MG/ML 30 ML VIAL MISCELLANE ONE (09:51)
[2021-07-06] MEDS ORDERED: LACTATED RINGERS 1,000 ML IV ONE (09:52)
--- NOTE | 2021-07-06 10:29 | P.OP ---
Date of Procedure: 07/06/21 Preoperative Diagnosis: Severe osteoarthritis right hip Postoperative Diagnosis: Severe osteoarthritis right hip Procedure(s) Performed: Right total hip arthroplasty with a direct anterior approach Implants: [employer] Polarstem standard size 4 collared [employer] R3, 3 hole hemispherical acetabular shell, 48 mm [employer] Reflection 6.5 mm cancellus screw, 20 mm 2, 15 mm [employer] R3, XLPE 20 acetabular liner [employer] Oxinium femoral head 32 m, +0 All components were press-fit. The articulation is Oxinium on polyethylene. Anesthesia: GETA Surgeon: Benjamin Shea Chief Operating Officer #1: Lora Adams Estimated Blood Loss (ml): 300 Pathology: other (Femoral head) Condition: stable Disposition: PACU Indications for Procedure: After failure of conservative treatment we discussed the surgical and nonsurgical treatment options at length. Patient wishes to proceed with a total hip arthroplasty with a direct anterior approach. Complications specific to this procedure were discussed at length, including but not limited to infection, leg length discrepancy, dislocation, nerve injury, and fracture. Covid-19 was also discussed at length with the patient, and they are aware of the current policies and procedures. The patient was given the option of delaying surgery, but they elect to proceed knowing these risks. Patient is aware of all these complications and informed consent was obtained Operative Findings: The operative findings are consistent with severe osteoarthritis of the right hip Description of Procedure: Patient was seen and evaluated in the preoperative area and the consent was reviewed. The operative site was marked with a skin marker. The patient was then brought to the operating room and given preoperative antibiotics intravenously. 1 g of Tranexamic acid was also given intravenously. A general anesthetic was administered by the anesthesia department. The patient was then placed on the Russell table with the bony prominences well-padded. The hip area was then prepped with a ChloraPrep solution and draped in the usual sterile fashion. A universal timeout was then performed, which confirmed the patient's name, surgical site, ALLERGIES, and procedure being performed on the consent. Next the incision site was located at 1 cm distal and 2 cm lateral to the anterior superior iliac spine. The skin and subcutaneous tissues were sharply incised. Incision was carefully dissected down to the fascia overlying the tensor fascia nate muscle. This fascia was then incised in line with the incision. Care was taken to stay laterally in order to avoid injuring the lateral femoral cutaneous nerve. Next, using blunt finger dissection, the tensor fascia nate muscle was dissected off its investing fascia. The muscle was then carefully retracted laterally with a cobra retractor over the lateral neck of the femur. Next, the circumflex vessels were identified and cauterized using the AquaMantis device. The anterior hip capsule was then exposed. The capsule was then opened and an inverted T fashion. Cobra retractors were then placed intracapsularly. The retractors were maintained intracapsular throughout the procedure. The proximal femur was then visualized. Fluoroscopic x-rays were then taken in order to evaluate the preoperative leg lengths. A small amount of traction was placed on the leg. The femoral neck was then osteotomized at the appropriate level above the lesser trochanter. A small wedge of bone was then removed from the remaining femoral head. Next, using a corkscrew the femoral head was removed from the acetabulum. On gross visual inspection, the femoral head had complete loss of articular cartilage and multiple periarticular osteophytes. The femoral head was then measured. Attention was then turned to the acetabulum. The acetabulum was exposed and any remaining labrum was excised. Sequential reaming of the acetabulum was performed using fluoroscopic guidance until there was a good bed of bleeding cancellus bone. When the appropriate size was reached, a trial was then placed. The position and fit of the trial was checked with fluoroscopy. The trial was then removed. Then, using fluoroscopic guidance, the final implant was impacted at 20 of anteversion and 40 of abduction, and fully seated in the acetabulum. 3 screws were then placed in the acetabulum. Again fluoroscopy was used to check position of the screws. Next, the liner was then impacted, with a 20 elevated liner located in the anterior superior quadrant. Component locking was confirmed. Attention was then directed to the femur. With the aid of the Russell table, the femur was externally rotated to approximately 130, extended, and adducted under the opposite leg. A side hook was then placed under the proximal femur, and the side hook elevator was used to elevate the proximal femur while releasing the capsule. Retractors were then placed. A capsular release was performed, as well as a release of the conjoined tendon, which afforded excellent visualization of the proximal femur. Next, a box osteotome was used to lateralize the proximal femur. A circus hand was then used to locate the femoral canal. Sequential broaching was then performed with appropriate size which afforded excellent fixation in the proximal femur. A trial was then placed with appropriate head and neck, and the hip was gently reduced with the aid of the Russell table. Fluoroscopy was then used to check position of the components, as well as to ensure equal leg lengths. The hip was then gently dislocated and the trials were then removed. Final implants were then impacted and the hip was again reduced. Final fluoroscopic x-rays confirmed that the components were in anatomic position, as well as equal leg lengths. The hip was also taken through range of motion, and found to be stable. The hip was then copiously irrigated with antibiotic solution with pulsatile lavage. The hip was then irrigated with Irrisept solution. The soft tissues were then injected with a ropivacaine solution. A second dose of 1 g of Tranexamic acid was also given intravenously. Any blood collected by Cell [employer]ver was then returned to the patient at this time. The fascia was then closed with 2-0 strata fix suture. The subcutaneous tissue was closed with 3-0 Vicryl. The subcuticular tissue was closed with 3-0 strata fix suture. The skin was then closed with Exofin skin glue. After the glue and dried, and Optifoam silver impregnated dressing was applied. The patient was then transferred to the recovery room in stable condition. The real estate legal assistant PRAVIN Jama was required due to the complexity of surgery, and the need for skilled surgical sales representative for positioning, draping, exposure, retraction, and closure of the wound.
[2021-07-06 11:00] VITALS: TEMP 97.3
--- NOTE | 2021-07-06 11:00 | XR ---
Fluoroscopy History: Rt Hip-Ant 46sec fluoro time
[2021-07-06 11:34] VITALS: RESP 16
--- NOTE | 2021-07-06 11:52 | XR ---
EXAMINATION TYPE: XR Hip Limited RT DATE OF EXAM: 07/06/2021 CLINICAL HISTORY: Postoperative evaluation TECHNIQUE: Single portable view of the right hip was submitted. FINDINGS: Noted are changes of total hip arthroplasty with femoral and acetabular components appearin g well seated. Alignment is anatomic. Postsurgical soft tissue changes are evident. IMPRESSION: Satisfactory postoperative alignment
[2021-07-06 14:54] VITALS: BP 110/69; PULSE 63
== END 2021-07-06 16:04 | disposition home health service (06) ==
LOC: OR 08:02
PROVIDERS: ATTEND Orthopaedic Surgery
DX: M16.11 Unilateral primary osteoarthritis, right hip (principal); I10 Essential (primary) hypertension; R26.81 Unsteadiness on feet; K21.9 Gastro-esophageal reflux disease without esophagitis; Z20.822 Contact with and (suspected) exposure to COVID-19; H91.90 Unspecified hearing loss, unspecified ear; Z85.828 Personal history of other malignant neoplasm of skin; Z97.3 Presence of spectacles and contact lenses; Z96.653 Presence of artificial knee joint, bilateral; Z79.1 Long term (current) use of non-steroidal anti-inflammatories (NSAID); Z79.818 Long term (current) use of other agents affecting estrogen receptors and estrogen levels; Z79.891 Long term (current) use of opiate analgesic; Z83.3 Family history of diabetes mellitus; Z82.49 Family history of ischemic heart disease and other diseases of the circulatory system; Z79.01 Long term (current) use of anticoagulants; Z79.82 Long term (current) use of aspirin; Z79.899 Other long term (current) drug therapy
CPT/HCPCS: 97530; 97161; 88300; 87635; 73501; 27130; C1776; J1100; J0690; J2795; J1170; 86850; 86900; 86901

== ENCOUNTER 2021-11-27 17:07 | Emergency (ER) | payer MEDICARE, BC ==
[2021-11-27 17:15] VITALS: BP 169/81; PULSE 85; RESP 16; TEMP 97.8
--- NOTE | 2021-11-27 17:46 | ED ---
General Adult HPI - General Chief complaint: Extremity Injury, Upper Stated complaint: Shoulder injury Time Seen by Provider: 11/27/21 17:21 Source: patient, RN notes reviewed, old records reviewed Mode of arrival: ambulatory Limitations: no limitations - History of Present Illness Initial comments: 81-year-old female with severe right shoulder pain. Patient states she was bending over and had a sudden popping sensation in the right lateral shoulder. This was severe at the time of onset. It has improved. This was worse with range of motion. There is no preceding symptoms. There is no specific fall or trauma. He was related to reaching forward. No central chest pain. No dyspnea. No fever. - Related Data Home Medications Medication Instructions Recorded Confirmed Aspirin [Adult Low Dose Aspirin EC] 81 mg PO DAILY 06/26/17 07/06/21 Omeprazole [PriLOSEC] 20 mg PO AC-BRKFST 06/26/17 07/06/21 Triamterene-Hctz 37.5-25Mg 1 cap PO DAILY 06/26/17 07/06/21 [Dyazide 37.5-25 Capsule] Calcium Carbonate [Calcium] 600 mg PO BID 01/01/21 07/06/21 Multivitamins, Thera [Multivitamin 1 tab PO DAILY 01/01/21 07/06/21 (formulary)] Vitamin E 400 unit PO DAILY 01/01/21 07/06/21 Losartan [Cozaar] 100 mg PO QAM 07/01/21 07/06/21 Meloxicam 15 mg PO DAILY 07/01/21 07/06/21 Previous Rx's Medication Instructions Recorded HYDROcodone/APAP 7.5-325MG [[place] 1 - 2 tab PO Q6H PRN #32 tab 07/06/21 7.5-325] Ondansetron Odt [Zofran Odt] 1 tab PO Q8HR PRN #10 tab 07/06/21 Rivaroxaban [Xarelto] 10 mg PO DAILY #35 tab 07/06/21 Sennosides [Senokot] 2 tab PO DAILY PRN #60 tablet 07/06/21 Allergies Allergy/AdvReac Type Severity Reaction Status Date / Time No Known Allergies Allergy Verified 11/27/21 17:15 Review of Systems ROS Statement: Those systems with pertinent positive or pertinent negative responses have been documented in the HPI. ROS Other: All systems not noted in ROS Statement are negative. 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 General Exam Limitations: no limitations General appearance: alert, in no apparent distress Head exam: Present: atraumatic, normocephalic Eye exam: Present: normal appearance, PERRL ENT exam: Present: normal exam Neck exam: Present: normal inspection. Absent: tenderness, meningismus Respiratory exam: Present: normal lung sounds bilaterally. Absent: respiratory distress, wheezes Cardiovascular Exam: Present: regular rate, normal rhythm GI/Abdominal exam: Present: soft. Absent: distended, tenderness, guarding, rebound Extremities exam: Present: normal inspection, full ROM, tenderness (Mild tenderness over the insertion of the deltoid.), normal capillary refill, other ( Normal meter supervisor strength, normal cap refill, 2+ radial pulse, normal sensation). Absent: joint swelling Neurological exam: Present: alert, oriented X3, CN II-XII intact. Absent: motor sensory deficit Psychiatric exam: Present: normal affect, normal mood Skin exam: Present: warm, dry, intact. Absent: cyanosis, diaphoretic Course Vital Signs 11/27/21 17:11 Temperature 97.8 F Pulse Rate 85 Respiratory 16 Rate Blood Pressure 169/81 O2 Sat by Pulse 96 Oximetry Medical Decision Making - Medical Decision Making 81-year-old female with acute right shoulder pain severe at onset but improved at the time my evaluation. She is tender over the insertion site of the deltoid. There is no gross deformity. Distal pulses are intact, normal meter supervisor strength, no associated chest pain or dyspnea. X-rays performed negative for fracture or dislocation. Patient should initially follow with her primary care physician. She may require orthopedics if symptoms persist. Disposition Clinical Impression: Strain of shoulder Disposition: HOME SELF-CARE Instructions (If sedation given, give patient instructions): Rotator Cuff Injury (ED), Shoulder Sprain (ED) Is patient prescribed a controlled substance at d/c from ED?: No Referrals: Callie Chawla MD [Primary Care Provider] - 1-2 days Time of Disposition: 17:49
--- NOTE | 2021-11-27 17:50 | XR ---
EXAMINATION TYPE: XR shoulder complete RT DATE OF EXAM: 11/27/2021 COMPARISON: NONE HISTORY: Shoulder pain TECHNIQUE: 3 view FINDINGS: Glenohumeral joint is intact. I see no fracture nor dislocation there is minor spurring at the AC joint. IMPRESSION: No acute abnormality of the right shoulder.
== END 2021-11-27 18:15 | disposition home or self-care (01) ==
LOC: EC 17:07
DX: S46.911A Strain of unspecified muscle, fascia and tendon at shoulder and upper arm level, right arm, initial encounter (principal); J45.909 Unspecified asthma, uncomplicated; I10 Essential (primary) hypertension; K21.9 Gastro-esophageal reflux disease without esophagitis; Z79.83 Long term (current) use of bisphosphonates; X58.XXXA Exposure to other specified factors, initial encounter
CPT/HCPCS: 99283

== ENCOUNTER 2022-02-16 09:16 | Emergency (ER) | payer MEDICARE, BC ==
[2022-02-16 09:29] VITALS: RESP 16
[2022-02-16 11:26] LABS: Basophils % (A) 0 %; Eosinophils % (A) 1 %; HCT 42.3 % (34.0-46.0); HGB 13.5 gm/dL (11.4-16.0); Lymphocytes # (A) 0.8 k/uL (1.0-4.8); Lymphocytes % (A) 11 %; MCH 30.9 pg (25.0-35.0); MCHC 31.9 g/dL (31.0-37.0); MCV 96.7 fL (80.0-100.0); Mean Platelet Volume 8.7; Monocytes # (A) 0.4 k/uL (0-1.0); Monocytes % (A) 6 %; Neutrophils # (A) 5.5 k/uL (1.3-7.7); Neutrophils % (A) 81 %; Platelet Count 313 k/uL (150-450); RBC 4.37 m/uL (3.80-5.40); RDW 13.1 % (11.5-15.5); WBC 6.8 k/uL (3.8-10.6)
[2022-02-16 11:30] LABS: Appearance,Urine Clear (Clear); Bilirubin,Urine Negative (Negative); Blood,Urine Negative (Negative); Color,Urine Colorless; Glucose,Urine (UA) Negative (Negative); Ketones,Urine Negative (Negative); Leukocyte Esterase,Urine Negative (Negative); Nitrite,Urine Negative (Negative); Protein,Urine Negative (Negative); Specific Gravity,Urine 1.006 (1.001-1.035); Urobilinogen,Urine <2.0 mg/dL (<2.0)
[2022-02-16 11:36] LABS: ALT 19 U/L (4-34); AST 33 U/L (14-36); African American GFR (CKD) >90 (>60 ml/min/1.73 sqM); Albumin 4.7 g/dL (3.5-5.0); Alkaline Phosphatase 87 U/L (38-126); Anion Gap 14 mmol/L; Blood Urea Nitrogen 16 mg/dL (7-17); Calcium 10.3 mg/dL (8.4-10.2); Carbon Dioxide 22 mmol/L (22-30); Chloride 94 mmol/L (98-107); Glucose 105 mg/dL (74-99); Non-African American GFR(CKD) 84 (>60 ml/min/1.73 sqM); Potassium 3.9 mmol/L (3.5-5.1); Sodium 130 mmol/L (137-145); Total Bilirubin 0.9 mg/dL (0.2-1.3); Total Protein 6.9 g/dL (6.3-8.2)
--- NOTE | 2022-02-16 12:03 | ED ---
General Adult HPI - General Chief complaint: Recheck/Abnormal Lab/Rx Stated complaint: High BP Time Seen by Provider: 02/16/22 09:35 Source: patient Mode of arrival: ambulatory Limitations: no limitations - History of Present Illness Initial comments: 81-year-old female with past history of hypertension presents to emergency room with elevated blood pressure. States that she takes her blood pressure daily. She has been checking her blood pressure for the past several days and has been running high. She has been taking her blood pressure medications as directed which include Dyazide and Cozaar except she did miss her blood pressure medications last week as the pharmacy was out of the medication. She has taken medication for the past 3 days. She denies any symptoms. No headache, chest pain, shortness of breath. No lower extremity edema. No calf pain. She denies any visual changes. She attempted to call her primary care doctor however was unable to get a hold of them and therefore came in to the emergency room for evaluation - Related Data Home Medications Medication Instructions Recorded Confirmed Omeprazole [PriLOSEC] 20 mg PO DAILY PRN 06/26/17 02/16/22 Triamterene-Hctz 37.5-25Mg 1 cap PO DAILY 06/26/17 02/16/22 [Dyazide 37.5-25 Capsule] Meloxicam 15 mg PO DAILY 07/01/21 02/16/22 Losartan Potassium [Cozaar] 100 mg PO DAILY 02/16/22 02/16/22 Allergies Allergy/AdvReac Type Severity Reaction Status Date / Time No Known Allergies Allergy Verified 02/16/22 10:54 Review of Systems ROS Statement: Those systems with pertinent positive or pertinent negative responses have been documented in the HPI. ROS Other: All systems not noted in ROS Statement are negative. Past Medical History Past Medical History: Asthma, Cancer, Deep Vein Thrombosis (DVT), GERD/Reflux, Hypertension, Osteoarthritis (OA), Skin Disorder Additional Past Medical History / Comment(s): psoriasis, basal cell cancer on face, hypoglycemia History of Any Multi-Drug Resistant Organisms: None Reported Past Surgical History: Joint Replacement, Orthopedic Surgery Additional Past Surgical History / Comment(s): cancer removed from face, neck surgery, carpal tunnel rt elbow, rt knee replacement, artie cataracts Past Anesthesia/Blood Transfusion Reactions: Postoperative Nausea & Vomiting (PONV) Past Psychological History: No Psychological Hx Reported Smoking Status: Never smoker Past Alcohol Use History: None Reported Past Drug Use History: None Reported - Past Family History Brother(s) Family Medical History: Cancer Additional Family Medical History / Comment(s): Melanoma. General Exam Limitations: no limitations General appearance: alert, in no apparent distress Head exam: Present: atraumatic, normocephalic, normal inspection Eye exam: Present: normal appearance, PERRL, EOMI. Absent: scleral icterus, conjunctival injection, periorbital swelling ENT exam: Present: normal exam, mucous membranes moist Neck exam: Present: normal inspection. Absent: tenderness, meningismus, lymphadenopathy Respiratory exam: Present: normal lung sounds bilaterally. Absent: respiratory distress, wheezes, rales, rhonchi, stridor Cardiovascular Exam: Present: regular rate, normal rhythm, normal heart sounds. Absent: systolic murmur, diastolic murmur, rubs, gallop, clicks GI/Abdominal exam: Present: soft, normal bowel sounds. Absent: distended, tenderness, guarding, rebound, rigid Extremities exam: Present: normal inspection, full ROM, normal capillary refill. Absent: tenderness, pedal edema, joint swelling, calf tenderness Back exam: Present: normal inspection Neurological exam: Present: alert, oriented X3, CN II-XII intact Psychiatric exam: Present: normal affect, normal mood Skin exam: Present: warm, dry, intact, normal color. Absent: rash Course Vital Signs 02/16/22 02/16/22 02/16/22 09:27 09:41 10:32 Temperature 97.7 F 97.7 F Pulse Rate 85 68 Respiratory 16 16 Rate Blood Pressure 184/86 161/83 135/107 O2 Sat by Pulse 98 Oximetry 02/16/22 02/16/22 11:14 12:12 Temperature 98.2 F Pulse Rate 66 Respiratory 16 Rate Blood Pressure 147/93 138/86 O2 Sat by Pulse 98 Oximetry EKG Findings - EKG Comments: EKG Findings:: EKG demonstrates sinus rhythm rate of 75. NH interval of 160. QRS 89. QTC of 410. No acute ST segment elevations or depressions Medical Decision Making - Medical Decision Making Upon arrival patient's placed into room 6. Thorough history and physical exam was performed. Patient presents with asymptomatic hypertension. Blood pressure does improve without treatment. Laboratory studies within normal limits except for sodium which is 1:30. This is chronic for the patient. Patient will be discharged home at this time. Instructed to keep a blood pressure log. Follow up with the primary care doctor for high blood pressure return for any new or worsening symptoms. Patient was agreeable discharged home in stable condition - Lab Data Result diagrams: 02/16/22 11:12 02/16/22 11:12 Lab Results 02/16/22 02/16/22 02/16/22 Range/Units 11:12 11:12 11:12 WBC 6.8 (3.8-10.6) k/uL RBC 4.37 (3.80-5.40) m/uL Hgb 13.5 (11.4-16.0) gm/dL Hct 42.3 (34.0-46.0) % MCV 96.7 (80.0-100.0) fL MCH 30.9 (25.0-35.0) pg MCHC 31.9 (31.0-37.0) g/dL RDW 13.1 (11.5-15.5) % Plt Count 313 (150-450) k/uL MPV 8.7 Neutrophils % 81 % Lymphocytes % 11 % Monocytes % 6 % Eosinophils % 1 % Basophils % 0 % Neutrophils # 5.5 (1.3-7.7) k/uL Lymphocytes # 0.8 L (1.0-4.8) k/uL Monocytes # 0.4 (0-1.0) k/uL Eosinophils # 0.0 (0-0.7) k/uL Basophils # 0.0 (0-0.2) k/uL Sodium 130 L (137-145) mmol/L Potassium 3.9 (3.5-5.1) mmol/L Chloride 94 L (98-107) mmol/L Carbon Dioxide 22 (22-30) mmol/L Anion Gap 14 mmol/L BUN 16 (7-17) mg/dL Creatinine 0.64 (0.52-1.04) mg/dL Est GFR (CKD-EPI)AfAm >90 (>60 ml/min/1.73 sqM) Est GFR (CKD-EPI)NonAf 84 (>60 ml/min/1.73 sqM) Glucose 105 H (74-99) mg/dL Calcium 10.3 H (8.4-10.2) mg/dL Total Bilirubin 0.9 (0.2-1.3) mg/dL AST 33 (14-36) U/L ALT 19 (4-34) U/L Alkaline Phosphatase 87 (38-126) U/L Troponin I <0.012 (0.000-0.034) ng/mL Total Protein 6.9 (6.3-8.2) g/dL Albumin 4.7 (3.5-5.0) g/dL Urine Color Urine Appearance (Clear) Urine pH (5.0-8.0) Ur Specific [place] (1.001-1.035) Urine Protein (Negative) Urine Glucose (UA) (Negative) Urine Ketones (Negative) Urine Blood (Negative) Urine Nitrite (Negative) Urine Bilirubin (Negative) Urine Urobilinogen (<2.0) mg/dL Ur Leukocyte Esterase (Negative) 02/16/22 Range/Units 11:14 WBC (3.8-10.6) k/uL RBC (3.80-5.40) m/uL Hgb (11.4-16.0) gm/dL Hct (34.0-46.0) % MCV (80.0-100.0) fL MCH (25.0-35.0) pg MCHC (31.0-37.0) g/dL RDW (11.5-15.5) % Plt Count (150-450) k/uL MPV Neutrophils % % Lymphocytes % % Monocytes % % Eosinophils % % Basophils % % Neutrophils # (1.3-7.7) k/uL Lymphocytes # (1.0-4.8) k/uL Monocytes # (0-1.0) k/uL Eosinophils # (0-0.7) k/uL Basophils # (0-0.2) k/uL Sodium (137-145) mmol/L Potassium (3.5-5.1) mmol/L Chloride (98-107) mmol/L Carbon Dioxide (22-30) mmol/L Anion Gap mmol/L BUN (7-17) mg/dL Creatinine (0.52-1.04) mg/dL Est GFR (CKD-EPI)AfAm (>60 ml/min/1.73 sqM) Est GFR (CKD-EPI)NonAf (>60 ml/min/1.73 sqM) Glucose (74-99) mg/dL Calcium (8.4-10.2) mg/dL Total Bilirubin (0.2-1.3) mg/dL AST (14-36) U/L ALT (4-34) U/L Alkaline Phosphatase (38-126) U/L Troponin I (0.000-0.034) ng/mL Total Protein (6.3-8.2) g/dL Albumin (3.5-5.0) g/dL Urine Color Colorless Urine Appearance Clear (Clear) Urine pH 7.0 (5.0-8.0) Ur Specific [place] 1.006 (1.001-1.035) Urine Protein Negative (Negative) Urine Glucose (UA) Negative (Negative) Urine Ketones Negative (Negative) Urine Blood Negative (Negative) Urine Nitrite Negative (Negative) Urine Bilirubin Negative (Negative) Urine Urobilinogen <2.0 (<2.0) mg/dL Ur Leukocyte Esterase Negative (Negative) Disposition Clinical Impression: High blood pressure Disposition: HOME SELF-CARE Condition: Stable Instructions (If sedation given, give patient instructions): Chronic Hypertension (ED) Additional Instructions: Please check your blood pressure 3 times a day and keep a log. Follow-up with Dr. Chawla for further management of your high blood pressure. Do not change your medications yet - talk to her first. Return for any new or worsening symptoms Is patient prescribed a controlled substance at d/c from ED?: No Referrals: Callie Chawla MD [Primary Care Provider] - 1-2 days Time of Disposition: 12:09
[2022-02-16 12:13] VITALS: BP 138/86; PULSE 66; TEMP 98.2
== END 2022-02-16 12:14 | disposition home or self-care (01) ==
LOC: EC 09:16
DX: I10 Essential (primary) hypertension (principal); J45.909 Unspecified asthma, uncomplicated; Z86.718 Personal history of other venous thrombosis and embolism; K21.9 Gastro-esophageal reflux disease without esophagitis; M19.90 Unspecified osteoarthritis, unspecified site; Z79.899 Other long term (current) drug therapy
CPT/HCPCS: 36415; 80053; 81003; 84484; 85025; 93005; 99283

== ENCOUNTER 2022-05-07 18:41 | Emergency (ER) | payer MEDICARE, BC ==
[2022-05-07 19:27] VITALS: TEMP 98
[2022-05-07] MEDS ORDERED: ONDANSETRON 4 MG/2 ML VIAL IVP STA (19:40)
[2022-05-07] MEDS ORDERED: SODIUM CHLORIDE 0.9% 500 ML 500 ML IV STA (19:40)
[2022-05-07] MEDS ORDERED: PANTOPRAZOLE 40 MG/10 ML VIAL IVP STA (19:40)
[2022-05-07] MEDS ORDERED: MAG HYDROX/AL HYDROX/SIMETH 30 ML, HYOSCYAMINE ELIXIR 10 ML PO STA ×2 (19:41)
--- NOTE | 2022-05-07 19:46 | ED ---
General Adult HPI - General Chief complaint: Nausea/Vomiting/Diarrhea Stated complaint: Chest Pain Time Seen by Provider: 05/07/22 19:32 Source: patient, family, RN notes reviewed, old records reviewed Mode of arrival: ambulatory Limitations: no limitations - History of Present Illness Initial comments: This is a well-appearing 81-year-old female that presents to the emergency room with family complaining of epigastric and upper abdominal pain. Patient states pain first started Monday after eating pizza, she vomited at 4:00 in the morning with relief. Patient states that she was good all day and Monday. Today she had a muffin and the pain returned. She is concerned for GERD or her gallbladder. She denies any chest pain or difficulty in breathing. No fevers. Patient does have a history of asthma, GERD and hypertension. -: days(s) (4) Location: abdomen (Epigastric, right upper and left upper) Severity scale (1-10): 7 Quality: sharp Consistency: intermittent Improves with: other (vomiting) Worsens with: other (palpation) Associated Symptoms: nausea/vomiting (once monday) - Related Data Home Medications Medication Instructions Recorded Confirmed Omeprazole [PriLOSEC] 20 mg PO Q48H 06/26/17 05/07/22 Meloxicam 15 mg PO DAILY 07/01/21 05/07/22 Losartan Potassium [Cozaar] 100 mg PO DAILY 02/16/22 05/07/22 HYDROcodone/APAP 7.5-325MG [Colton 1 tab PO Q4H PRN 05/07/22 05/07/22 7.5-325] Metoprolol Succinate (ER) [Toprol 25 mg PO DAILY 05/07/22 05/07/22 Xl] Triamterene/Hydrochlorothiazid 1 tab PO DAILY 05/07/22 05/07/22 [Triamterene-Hctz 37.5-25 mg Tb] Allergies Allergy/AdvReac Type Severity Reaction Status Date / Time No Known Allergies Allergy Verified 05/07/22 20:23 Review of Systems ROS Statement: Those systems with pertinent positive or pertinent negative responses have been documented in the HPI. ROS Other: All systems not noted in ROS Statement are negative. Past Medical History Past Medical History: Asthma, Cancer, Deep Vein Thrombosis (DVT), GERD/Reflux, Hypertension, Osteoarthritis (OA), Skin Disorder Additional Past Medical History / Comment(s): psoriasis, basal cell cancer on face, hypoglycemia History of Any Multi-Drug Resistant Organisms: None Reported Past Surgical History: Joint Replacement, Orthopedic Surgery Additional Past Surgical History / Comment(s): cancer removed from face, neck surgery, carpal tunnel rt elbow, rt knee replacement, artie cataracts Past Anesthesia/Blood Transfusion Reactions: Postoperative Nausea & Vomiting (PONV) Past Psychological History: No Psychological Hx Reported Smoking Status: Never smoker Past Alcohol Use History: None Reported Past Drug Use History: None Reported - Past Family History Brother(s) Family Medical History: Cancer Additional Family Medical History / Comment(s): Melanoma. General Exam Limitations: no limitations General appearance: alert, in no apparent distress Head exam: Present: atraumatic, normocephalic Eye exam: Present: normal appearance. Absent: scleral icterus, conjunctival injection, periorbital swelling ENT exam: Present: mucous membranes moist Neck exam: Absent: tenderness, meningismus Respiratory exam: Present: normal lung sounds bilaterally. Absent: respiratory distress, wheezes, rales, rhonchi, stridor, chest wall tenderness, accessory muscle use, decreased breath sounds Cardiovascular Exam: Present: regular rate GI/Abdominal exam: Present: soft, tenderness (Epigastric ). Absent: distended, rigid Extremities exam: Present: normal capillary refill. Absent: pedal edema Back exam: Absent: tenderness, CVA tenderness (R), CVA tenderness (L) Neurological exam: Present: alert, oriented X3 Psychiatric exam: Present: normal affect, normal mood Skin exam: Present: warm, dry, intact, normal color. Absent: rash, cyanosis, diaphoretic, petechiae, pallor Course Vital Signs 05/07/22 05/07/22 19:25 20:27 Temperature 98 F Pulse Rate 64 69 Respiratory 18 16 Rate Blood Pressure 114/52 123/77 O2 Sat by Pulse 98 98 Oximetry EKG Findings - EKG Results: EKG: sinus rhythm (Ventricular rate 60, RI interval 0.168, QRS 0.107, QTC 0.4-1; normal axis) Medical Decision Making - Medical Decision Making Well-appearing 81-year-old female, alert and oriented 4, presents with intermittent abdominal pain that started Monday after eating pizza. Did have an episode of vomiting at that time. States was feeling better and Monday however states today she developed pain again after eating a muffin. Does have nausea, no vomiting. No fevers. No chest pain or difficulty breathing. Chest x-ray interpreted by me shows no evidence of focal consolidation. Prominent aortic knob. Radiologist interpretation no active cardiopulmonary disease or change. EKG shows sinus rhythm with no ST elevation. Troponin negative Labs show mild leukocytosis 12.8 Sodium of 129, glucose 143 Total bili 3.3, AST 221, ALT 335, amylase 56 and lipase 603. Patient was given IV fluids, Zofran, Protonix and a GI cocktail. Family states that she did rest comfortably. CT interpreted by me shows with cholelithiasis. Radiologist interpretation gallstones abdomen and pelvis shows a dilated biliary tree and dilated gallbladder with multiple gallstones. This is likely an obstructing common duct stone. Her gallbladder measures 5.2 cm in diameter. Common bile duct measures 1.4 cm. No evidence of diverticulitis. Case discussed with Dr. Butler patient will be transferred to the [facility]. Patient was accepted by Dr. Mccall. Patient and family are agreeable to this plan of care. Vital signs are stable patient is afebrile. - Lab Data Result diagrams: 05/07/22 19:58 05/07/22 19:58 Lab Results 05/07/22 05/07/22 05/07/22 Range/Units 19:58 19:58 19:58 WBC 12.8 H (3.8-10.6) k/uL RBC 3.88 (3.80-5.40) m/uL Hgb 12.5 (11.4-16.0) gm/dL Hct 37.9 (34.0-46.0) % MCV 97.8 (80.0-100.0) fL MCH 32.2 (25.0-35.0) pg MCHC 32.9 (31.0-37.0) g/dL RDW 13.3 (11.5-15.5) % Plt Count 274 (150-450) k/uL MPV 9.4 Neutrophils % 91 % Lymphocytes % 3 % Monocytes % 5 % Eosinophils % 0 % Basophils % 0 % Neutrophils # 11.6 H (1.3-7.7) k/uL Lymphocytes # 0.4 L (1.0-4.8) k/uL Monocytes # 0.6 (0-1.0) k/uL Eosinophils # 0.0 (0-0.7) k/uL Basophils # 0.0 (0-0.2) k/uL Sodium 129 L (137-145) mmol/L Potassium 3.9 (3.5-5.1) mmol/L Chloride 96 L (98-107) mmol/L Carbon Dioxide 26 (22-30) mmol/L Anion Gap 7 mmol/L BUN 15 (7-17) mg/dL Creatinine 0.59 (0.52-1.04) mg/dL Est GFR (CKD-EPI)AfAm >90 (>60 ml/min/1.73 sqM) Est GFR (CKD-EPI)NonAf 86 (>60 ml/min/1.73 sqM) Glucose 143 H (74-99) mg/dL Plasma Lactic Acid Jovanni 1.1 (0.7-2.0) mmol/L Calcium 9.6 (8.4-10.2) mg/dL Total Bilirubin 3.3 H (0.2-1.3) mg/dL AST 221 H (14-36) U/L ALT 335 H (4-34) U/L Alkaline Phosphatase 317 H (38-126) U/L Troponin I (0.000-0.034) ng/mL Total Protein 6.9 (6.3-8.2) g/dL Albumin 4.3 (3.5-5.0) g/dL Amylase 86 (30-110) U/L Lipase 603 H (23-300) U/L 05/07/22 Range/Units 19:58 WBC (3.8-10.6) k/uL RBC (3.80-5.40) m/uL Hgb (11.4-16.0) gm/dL Hct (34.0-46.0) % MCV (80.0-100.0) fL MCH (25.0-35.0) pg MCHC (31.0-37.0) g/dL RDW (11.5-15.5) % Plt Count (150-450) k/uL MPV Neutrophils % % Lymphocytes % % Monocytes % % Eosinophils % % Basophils % % Neutrophils # (1.3-7.7) k/uL Lymphocytes # (1.0-4.8) k/uL Monocytes # (0-1.0) k/uL Eosinophils # (0-0.7) k/uL Basophils # (0-0.2) k/uL Sodium (137-145) mmol/L Potassium (3.5-5.1) mmol/L Chloride (98-107) mmol/L Carbon Dioxide (22-30) mmol/L Anion Gap mmol/L BUN (7-17) mg/dL Creatinine (0.52-1.04) mg/dL Est GFR (CKD-EPI)AfAm (>60 ml/min/1.73 sqM) Est GFR (CKD-EPI)NonAf (>60 ml/min/1.73 sqM) Glucose (74-99) mg/dL Plasma Lactic Acid Jovanni (0.7-2.0) mmol/L Calcium (8.4-10.2) mg/dL Total Bilirubin (0.2-1.3) mg/dL AST (14-36) U/L ALT (4-34) U/L Alkaline Phosphatase (38-126) U/L Troponin I <0.012 (0.000-0.034) ng/mL Total Protein (6.3-8.2) g/dL Albumin (3.5-5.0) g/dL Amylase (30-110) U/L Lipase (23-300) U/L Disposition Clinical Impression: Choledocholithiasis with obstruction, Elevated bilirubin Disposition: ADMITTED IP TO THIS HOSP Referrals: Callie Chawla MD [Primary Care Provider] - 1-2 days Decision Date: 05/07/22 Decision Time: 22:19 - Out of Hospital Transfer - Req. Specs Out of Hospital Transfer - Requested Specifics: Other Emergency Center ([facility])
[2022-05-07 20:05] LABS: Basophils % (A) 0 %; Eosinophils % (A) 0 %; HCT 37.9 % (34.0-46.0); HGB 12.5 gm/dL (11.4-16.0); Lymphocytes # (A) 0.4 k/uL (1.0-4.8); Lymphocytes % (A) 3 %; MCH 32.2 pg (25.0-35.0); MCHC 32.9 g/dL (31.0-37.0); MCV 97.8 fL (80.0-100.0); Mean Platelet Volume 9.4; Monocytes # (A) 0.6 k/uL (0-1.0); Monocytes % (A) 5 %; Neutrophils # (A) 11.6 k/uL (1.3-7.7); Neutrophils % (A) 91 %; Platelet Count 274 k/uL (150-450); RBC 3.88 m/uL (3.80-5.40); RDW 13.3 % (11.5-15.5); WBC 12.8 k/uL (3.8-10.6)
[2022-05-07 20:18] LABS: ALT 335 U/L (4-34); AST 221 U/L (14-36); African American GFR (CKD) >90 (>60 ml/min/1.73 sqM); Albumin 4.3 g/dL (3.5-5.0); Alkaline Phosphatase 317 U/L (38-126); Amylase 86 U/L (30-110); Anion Gap 7 mmol/L; Blood Urea Nitrogen 15 mg/dL (7-17); Calcium 9.6 mg/dL (8.4-10.2); Carbon Dioxide 26 mmol/L (22-30); Chloride 96 mmol/L (98-107); Glucose 143 mg/dL (74-99); Lipase 603 U/L (23-300); Non-African American GFR(CKD) 86 (>60 ml/min/1.73 sqM); Potassium 3.9 mmol/L (3.5-5.1); Sodium 129 mmol/L (137-145); Total Bilirubin 3.3 mg/dL (0.2-1.3); Total Protein 6.9 g/dL (6.3-8.2)
--- NOTE | 2022-05-07 20:30 | XR ---
EXAMINATION TYPE: XR chest 2V DATE OF EXAM: 05/07/2022 COMPARISON: 01/01/2021 HISTORY: Abdominal pain TECHNIQUE: FINDINGS: There is no heart failure nor confluent pneumonic infiltrate. Costophrenic angles are clear . There are no hilar masses. There are chest leads. Bony thorax is intact. IMPRESSION: No active cardiopulmonary disease. No change.
[2022-05-07 21:15] VITALS: BP 123/77; PULSE 69; RESP 16
[2022-05-07] MEDS ORDERED: SODIUM CHLORIDE 0.9% 1,000 ML IV SCH (21:15)
--- NOTE | 2022-05-07 21:39 | CT ---
EXAMINATION TYPE: CT abdomen pelvis w con DATE OF EXAM: 05/07/2022 COMPARISON: None HISTORY: Abdominal pain, acid reflux CT DLP: 789 mGycm Automated exposure control for dose reduction was used. CONTRAST: Performed with IV Contrast, patient injected with 100 mL of Isovue 370. Images obtained from the diaphragm to the floor the pelvis with the IV contrast. There are some mild subsegmental atelectasis at the lung bases. Heart is top normal in size. No peric ardial effusion. No pleural effusion. There is dilated gallbladder with multiple small gallstones. Gallbladder measures 5.2 cm in diameter. There is dilated common bile duct and density in the distal common bile duct that is likely common d uct stone. Common bile duct measures 1.4 cm. No pancreatic mass. Spleen is intact. The stomach is int act. There is no adrenal mass. Kidneys show satisfactory contrast opacification. No hydronephrosis. There are renal cortical cysts that measure up to 2.5 cm. No retroperitoneal adenopathy. Abdominal aorta is atheromatous. There is metal artifact from right hip prosthesis. No inguinal hernia. Bladder distend s smoothly. No free fluid in the pelvis. There are multiple sigmoid diverticula. No sign of diverticu litis. There is thoracolumbar levoscoliosis and moderate midlumbar dextroscoliotic deformity. There is sublu xation and lateral deformity in the mid lumbar spine. No compression fracture. The pelvic ring is int act. IMPRESSION: Dilated biliary tree and dilated gallbladder. Multiple gallstones. There is likely a obstructing comm on duct stone. Colonic diverticulosis without diverticulitis. Right side gluteal muscle atrophy. Patchy atelectasis at the lung bases.
== END 2022-05-07 23:23 | disposition other institution (70) ==
LOC: EC 18:41
DX: K80.51 Calculus of bile duct without cholangitis or cholecystitis with obstruction (principal); E80.7 Disorder of bilirubin metabolism, unspecified; J45.909 Unspecified asthma, uncomplicated; Z86.718 Personal history of other venous thrombosis and embolism; I10 Essential (primary) hypertension; M19.90 Unspecified osteoarthritis, unspecified site; K21.9 Gastro-esophageal reflux disease without esophagitis; Z79.899 Other long term (current) drug therapy
CPT/HCPCS: 36415; 93005; 80053; 82150; 83605; 83690; 84484; 85025; 71046; 74177; 99285; 96374; 96375; 96361 ×3; J2405; C9113; Q9967

== ENCOUNTER → 2023-06-07 | Outpatient (CLI) | payer MEDICARE, BC ==
--- NOTE | 2023-06-08 23:54 | BD ---
EXAMINATION TYPE: Axial Bone Density DATE OF EXAM: 06/07/2023 CLINICAL HISTORY: 82 years old Female. ICD-10 CODE: POST MENOPAUSAL WITHOUT HRT Z78.0 Height: 5 ft Weight: 134 FRAX RISK QUESTIONS: Alcohol (3 or more units per day): no Family History (Parent hip fracture): no Glucocorticoids (More than 3mos): no (Ex: prednisone, prednisolone, methylprednisolone, dexamethasone, and hydrocortisone). History of Fracture in Adulthood: no Secondary Osteoporosis: 1. Type 1 Diabetes: no 2. Hyperthyroidism: no 3. Menopause before 45: no 4. Malnutrition: no 5. Chronic liver disease: no Rheumatoid Arthritis: yes Current Tobacco Use: no RISK FACTORS HISTORY OF: Surgery to Spine/Hip(right/left)/Wrist (right/left): rt hip replacement When: 2021 Family History of Osteoporosis: no Active: yes Diet low in dairy products/other sources of calcium: no Postmenopausal woman: yes Take estrogen and/or progesterone medications: no Lost more than 2 inches in height since high school: yes Frequent falls: no Poor Health: good Hyperparathyroidism: no Adrenal Insufficiency: no MEDICATIONS: Thyroid Medications: yes Which medication: ? How Long: just started Additional Medications: [place],blood pressure, omeprazole Additional History: EXAM MEASUREMENTS: Bone mineral densitometry was performed using the Ensyn System. Bone mineral density as measured about the Lumbar spine is: ----- L1-L4(G/cm2): 1.253 T Score Values are as follows: ----- L1: 1.3 ----- L2: 0.4 ----- L3: -0.8 ----- L4: 1.0 ----- L1-L4: 0.6 Z Score Values are as follows: ----- L1: 3.3 ----- L2: 2.4 ----- L3: 1.2 ----- L4: 3.0 ----- L1-L4: 2.6 prev done [facility] Bone mineral density about the L hip (g/cm2): 0.739 T Score values are as follows: -----L Neck: -2.2 -----L Total: -2.2 Z Score values are as follows: -----L Neck: 0.2 -----L Total: 0.0 prev done [facility] FRAX%s: The graph provided illustrates a 16.9 % chance for a major osteoporotic fx and a 5.6 % chance for the hips probability for fx in 10 years time. IMPRESSION: Normal (Values between +1 and -1 indicate normal bone mass). Consider repeating this study in 5 year s or sooner if there is some new clinical indication. NOTE: T-SCORE=SD OF THE YOUNG ADULT MEAN.
--- NOTE | 2023-06-09 15:52 | MM ---
Reason for Exam: Screening (asymptomatic). Last mammogram was performed 1 year(s) and 6 month(s) ago. Patient History: Menarche at age 12. First Full-Term at age 24. Postmenopausal. Risk Values: Leah 5 year model risk: 1.4%. NCI Lifetime model risk: 1.9%. Prior Study Comparison: 07/27/2017 Bilateral Screening Mammogram, Unknown. 09/17/2018 Bilateral Screening Mammogram, Unknown. 12/23/2021 Bilateral Screening Mammogram, Unknown. Tissue Density: There are scattered fibroglandular densities. Findings: Analyzed By CAD. Pattern appears symmetrical and stable. No significant interval change is evident. Benign vascular calcifications present bilaterally. No suspicious groups of microcalcifications, spiculated or lobular masses, architectural distortion or other secondary signs of malignancy are mammographically apparent. Overall Assessment: Benign, BI-RAD 2 Management: Screening Mammogram of both breasts in 1 year. A negative mammogram report should not preclude additional follow up of suspicious palpable abnormalities. Patient should continue monthly self breast exam. A clinical breast exam by your physician is recommended on an annual basis and results should be correlated with mammographic findings. Electronically signed and approved by: Blaze Hung D.O. Radiologis
== END | disposition home or self-care (01) ==
LOC: RADMAMWWP 13:49
PROVIDERS: ATTEND Family Medicine
DX: Z12.31 Encounter for screening mammogram for malignant neoplasm of breast (principal); M85.852 Other specified disorders of bone density and structure, left thigh; Z78.0 Asymptomatic menopausal state
CPT/HCPCS: 77063; 77067; 77080

== ENCOUNTER 2023-07-10 15:54 | Emergency (ER) | payer MEDICARE, BC ==
[2023-07-10 16:32] VITALS: TEMP 98.4
--- NOTE | 2023-07-10 18:25 | ED ---
General Adult HPI - General Chief complaint: Recheck/Abnormal Lab/Rx Stated complaint: Hypertension Time Seen by Provider: 07/10/23 18:13 Source: patient Mode of arrival: ambulatory Limitations: no limitations - History of Present Illness Initial comments: Dictation was produced using [employer] dictation software. please excuse any grammatical, word or spelling errors. Chief Complaint: 82-year-old female with high blood pressure History of Present Illness: Patient is 82-year-old female she has past medical history of hypertension. Patient states she took her blood pressure as her systolic was measuring over 200. Patient states that she feels fuzzy in the head. She denies headache. No chest pain shortness of breath or strokelike symptoms. States that her blood pressure is typically 120 systolic. Patient otherwise does not have any significant medical complaints. Patient takes 3 blood pressure medications. States that her blood pressure is typically well- controlled. She has not missed any doses. States that she did not have any changes in her eating habits. She has not started any new medications. The ROS documented in this emergency department record has been reviewed and confirmed by me. Those systems with pertinent positive or negative responses have been documented in the HPI. All other systems are other negative and/or noncontributory. - Related Data Home Medications Medication Instructions Recorded Confirmed Omeprazole [PriLOSEC] 20 mg PO Q48H 06/26/17 05/07/22 Meloxicam 15 mg PO DAILY 07/01/21 05/07/22 Losartan Potassium [Cozaar] 100 mg PO DAILY 02/16/22 05/07/22 HYDROcodone/APAP 7.5-325MG [[place] 1 tab PO Q4H PRN 05/07/22 05/07/22 7.5-325] Metoprolol Succinate (ER) [Toprol 25 mg PO DAILY 05/07/22 05/07/22 Xl] Triamterene/Hydrochlorothiazid 1 tab PO DAILY 05/07/22 05/07/22 [Triamterene-Hctz 37.5-25 mg Tb] Allergies Allergy/AdvReac Type Severity Reaction Status Date / Time No Known Allergies Allergy Verified 07/10/23 16:19 Review of Systems ROS Statement: Those systems with pertinent positive or pertinent negative responses have been documented in the HPI. ROS Other: All systems not noted in ROS Statement are negative. Past Medical History Past Medical History: Asthma, Cancer, Deep Vein Thrombosis (DVT), GERD/Reflux, Hypertension, Osteoarthritis (OA), Skin Disorder Additional Past Medical History / Comment(s): psoriasis, basal cell cancer on face, hypoglycemia History of Any Multi-Drug Resistant Organisms: None Reported Past Surgical History: Joint Replacement, Orthopedic Surgery Additional Past Surgical History / Comment(s): cancer removed from face, neck surgery, carpal tunnel rt elbow, rt knee replacement, artie cataracts Past Anesthesia/Blood Transfusion Reactions: Postoperative Nausea & Vomiting (PONV) Past Psychological History: No Psychological Hx Reported Smoking Status: Never smoker Past Alcohol Use History: None Reported Past Drug Use History: None Reported - Past Family History Brother(s) Family Medical History: Cancer Additional Family Medical History / Comment(s): Melanoma. General Exam - General Exam Comments Initial Comments: PHYSICAL EXAM: General Impression: Alert and oriented x3, not in acute distress HEENT: Normocephalic atraumatic, extra-ocular movements intact, pupils equal and reactive to light bilaterally, mucous membranes moist. Cardiovascular: Heart regular rate and rhythm Chest: Able to complete full sentences, no retractions, no tachypnea Abdomen: abdomen soft, non-tender, non-distended, no organomegaly Musculoskeletal: Pulses present and equal in all extremities, no peripheral edema Motor: no focal deficits noted Neurological: CN II-XII grossly intact, no focal motor or sensory deficits noted Skin: Intact with no visualized rashes Psych: Normal affect and mood Limitations: no limitations Course Vital Signs 07/10/23 07/10/23 07/10/23 16:17 18:33 18:35 Temperature 98.4 F Pulse Rate 80 66 Pulse Rate [ 70 Left Sitting Radial] Respiratory 20 18 Rate Blood Pressure 193/96 172/102 O2 Sat by Pulse 96 98 Oximetry 07/10/23 19:00 Temperature Pulse Rate 64 Pulse Rate [ Left Sitting Radial] Respiratory 19 Rate Blood Pressure 168/101 O2 Sat by Pulse 98 Oximetry EKG Findings - EKG Comments: EKG Findings:: My EKG interpretation: Ventricular rate 64, sinus rhythm,. 172, cures 100, QTc 402. No ID prolongation, no QTC prolongation, no ST or T-wave changes noted. Overall, this EKG is unremarkable Medical Decision Making - Medical Decision Making Was pt. sent in by a medical professional or institution (, PA, INFANTRY UNIT LEADER, urgent care, hospital, or retirement...) When possible be specific @ -No Did you speak to anyone other than the patient for history (EMS, parent, family, police, friend...)? What history was obtained from this source @ -No Did you review nursing and triage notes (agree or disagree)? Why? @ -I reviewed and agree with nursing and triage notes Were old charts reviewed (outside hosp., previous admission, EMS record, old EKG, old radiological studies, urgent care reports/EKG's, retirement records)? Report findings @ -No old charts were reviewed Differential Diagnosis (chest pain, altered mental status, abdominal pain women, abdominal pain men, vaginal bleeding, musculoskeletal, weakness, fever, dyspnea, syncope, headache, dizziness, GI bleed, back pain, seizure, CVA, palpatations, mental health)? @ -Not applicable EKG interpreted by me (3pts min.). @ -See above X-rays interpreted by me (1pt min.). @ -None done CT interpreted by me (1pt min.). @ -None done U/S interpreted by me (1pt. min.). @ -None done What testing was considered but not performed or refused? (CT, X-rays, U/S, labs)? Why? @ -None What meds were considered but not given or refused? Why? @ -None Did you discuss the management of the patient with other professionals (pro fessionals i.e. , PRAVIN, INFANTRY UNIT LEADER, lab, RT, psych nurse, social staff worker, track walker, teacher, driver license reviewing officer, case management associate)? Give summary @ -No Was smoking cessation discussed for >3mins.? @ -No Was critical care preformed (if so, how long)? @ -No Were there social determinants of health that impacted care today? How? (Homelessness, low income, unemployed, alcoholism, drug addiction, transportation, low edu. Level, literacy, decrease access to med. care, residential, rehab)? @ -No Was there de-escalation of care discussed even if they declined (Discuss DNR or withdrawal of care, Hospice)? DNR status @ -No What co-morbidities impacted this encounter? (DM, HTN, Smoking, COPD, CAD, Cancer, CVA, ARF, Chemo, Hep., AIDS, mental health diagnosis, sleep apnea, morbid obesity)? @ -None Was patient admitted / discharged? Hospital course, mention meds given and route, prescriptions, significant lab abnormalities, going to OR and other pertinent info. @ -82-year-old female with asymptomatic hypertension. Blood pressure on arrival was 193/96. Trended blood pressures. Last at 7:00 AM was 168/101. Patient reevaluated at the bedside at 7:20 PM found to be stable condition. She denies any symptoms. She is well-appearing no acute distress. Laboratory evaluation shows mild hyponatremia. Patient told to increase her fluid intake. Patient agreeable for discharge. No indication for aggressive blood pressure management at this time. Undiagnosed new problem with uncertain prognosis? @ -No Drug Therapy requiring intensive monitoring for toxicity (Heparin, Nitro, Insulin, Cardizem)? @ -No Were any procedures done? @ -No Diagnosis/symptom? Acute, or Chronic, or Acute on Chronic? Uncomplicated ( without systemic symptoms) or Complicated (systemic symptoms)? @ -Asymptomatic hypertension Side effects of treatment? @ -No Exacerbation, Progression, or Severe Exacerbation? @ -No Poses a threat to life or bodily function? How? (Chest pain, USA, SD, pneumonia, PE, COPD, DKA, ARF, appy, cholecystitis, CVA, Diverticulitis, Homicidal, Suicidal, threat to staff... and all critical care pts) @ -No - Lab Data Result diagrams: 07/10/23 18:29 07/10/23 18:29 Lab Results 07/10/23 07/10/23 Range/Units 18:29 18:29 WBC 10.3 (3.8-10.6) k/uL RBC 4.34 (3.80-5.40) m/uL Hgb 13.8 (11.4-16.0) gm/dL Hct 41.0 (34.0-46.0) % MCV 94.4 (80.0-100.0) fL MCH 31.8 (25.0-35.0) pg MCHC 33.7 (31.0-37.0) g/dL RDW 13.0 (11.5-15.5) % Plt Count 297 (150-450) k/uL MPV 8.4 Neutrophils % 86 % Lymphocytes % 7 % Monocytes % 5 % Eosinophils % 1 % Basophils % 0 % Neutrophils # 8.8 H (1.3-7.7) k/uL Lymphocytes # 0.8 L (1.0-4.8) k/uL Monocytes # 0.5 (0-1.0) k/uL Eosinophils # 0.1 (0-0.7) k/uL Basophils # 0.0 (0-0.2) k/uL Sodium 126 L (137-145) mmol/L Potassium 4.3 (3.5-5.1) mmol/L Chloride 94 L (98-107) mmol/L Carbon Dioxide 25 (22-30) mmol/L Anion Gap 7 mmol/L BUN 11 (7-17) mg/dL Creatinine 0.54 (0.52-1.04) mg/dL Est GFR (CKD-EPI)AfAm >90 (>60 ml/min/1.73 sqM) Est GFR (CKD-EPI)NonAf 88 (>60 ml/min/1.73 sqM) Glucose 109 H (74-99) mg/dL Calcium 10.1 (8.4-10.2) mg/dL Total Bilirubin 1.0 (0.2-1.3) mg/dL AST 36 (14-36) U/L ALT 25 (4-34) U/L Alkaline Phosphatase 125 (38-126) U/L Total Protein 7.3 (6.3-8.2) g/dL Albumin 4.7 (3.5-5.0) g/dL Disposition Clinical Impression: Asymptomatic hypertension Disposition: HOME SELF-CARE Condition: Good Is patient prescribed a controlled substance at d/c from ED?: No Referrals: Callie Chawla MD [Primary Care Provider] - 1-2 days Time of Disposition: 19:20
[2023-07-10 18:40] LABS: Basophils % (A) 0 %; Eosinophils # (A) 0.1 k/uL (0-0.7); Eosinophils % (A) 1 %; HGB 13.8 gm/dL (11.4-16.0); Lymphocytes # (A) 0.8 k/uL (1.0-4.8); Lymphocytes % (A) 7 %; MCH 31.8 pg (25.0-35.0); MCHC 33.7 g/dL (31.0-37.0); MCV 94.4 fL (80.0-100.0); Mean Platelet Volume 8.4; Monocytes # (A) 0.5 k/uL (0-1.0); Monocytes % (A) 5 %; Neutrophils # (A) 8.8 k/uL (1.3-7.7); Neutrophils % (A) 86 %; Platelet Count 297 k/uL (150-450); RBC 4.34 m/uL (3.80-5.40); WBC 10.3 k/uL (3.8-10.6)
[2023-07-10 19:04] LABS: ALT 25 U/L (4-34); AST 36 U/L (14-36); African American GFR (CKD) >90 (>60 ml/min/1.73 sqM); Albumin 4.7 g/dL (3.5-5.0); Alkaline Phosphatase 125 U/L (38-126); Anion Gap 7 mmol/L; Blood Urea Nitrogen 11 mg/dL (7-17); Calcium 10.1 mg/dL (8.4-10.2); Carbon Dioxide 25 mmol/L (22-30); Chloride 94 mmol/L (98-107); Glucose 109 mg/dL (74-99); Non-African American GFR(CKD) 88 (>60 ml/min/1.73 sqM); Potassium 4.3 mmol/L (3.5-5.1); Sodium 126 mmol/L (137-145); Total Protein 7.3 g/dL (6.3-8.2)
[2023-07-10 19:33] VITALS: BP 180/96; PULSE 79; RESP 19
== END 2023-07-10 19:33 | disposition home or self-care (01) ==
LOC: EC 15:54
DX: I10 Essential (primary) hypertension (principal); J45.909 Unspecified asthma, uncomplicated; K21.9 Gastro-esophageal reflux disease without esophagitis; Z79.899 Other long term (current) drug therapy
CPT/HCPCS: 36415; 80053; 85025; 93005; 99284

== ENCOUNTER → 2023-08-30 | Outpatient (CLI) | payer MEDICARE, BC ==
[2023-08-30 08:55] LABS: Partial Thromboplastin Time 26.9 sec (22.0-30.0)
[2023-08-30 11:12] LABS: HCT 41.1 % (37.2-46.3); HGB 13.1 g/dL (12.0-15.0); MCH 30.8 pg (27.0-32.0); MCHC 31.9 g/dL (32.0-37.0); MCV 96.5 FL (80.0-97.0); Mean Platelet Volume 11.2 FL (9.5-12.2); NRBC Per 100 WBC 0 X 10*3/uL (0.00-0.01); Platelet Count 280 X 10*3/uL (140-440); RBC 4.26 X 10*6/uL (4.10-5.20); WBC 7.65 X 10*3/uL (4.50-10.00)
[2023-08-30 11:30] LABS: ALT 17 U/L (8-44); AST 24 U/L (13-35); Albumin 4.5 g/dL (3.8-4.9); Albumin/Globulin Ratio 2.37 Ratio (1.60-3.17); Alkaline Phosphatase 104 U/L (41-126); BUN/Creat Ratio 17.14 Ratio (12.00-20.00); Calcium 10.3 mg/dL (8.7-10.3); Carbon Dioxide 27.4 mmol/L (21.6-31.8); Chloride 98 mmol/L (96-109); Globulin 1.9 g/dL (1.6-3.3); Glucose 91 mg/dL (70-110); Potassium 4.7 mmol/L (3.5-5.5); Sodium 134 mmol/L (135-145); Total Bilirubin 0.7 mg/dL (0.3-1.2); Total Protein 6.4 g/dL (6.2-8.2)
== END | disposition home or self-care (01) ==
LOC: LABPAT 08:02
PROVIDERS: ATTEND Orthopaedic Surgery
DX: Z01.812 Encounter for preprocedural laboratory examination (principal); M16.12 Unilateral primary osteoarthritis, left hip; Z22.322 Carrier or suspected carrier of Methicillin resistant Staphylococcus aureus
CPT/HCPCS: 36415; 80053; 85027; 85610; 85730; 86850; 86900; 86901; 87070

== ENCOUNTER → 2023-09-11 | Day surgery (SDC) | payer MEDICARE, BC ==
[2023-09-08 09:20] VITALS: BMI 26.7
[~2023-09-11] MED LIST changes: -DEXAMETHASONE SOD PHOSPHATE 4 MG/ML 1 ML VIAL IV ONE; -GABAPENTIN 300 MG CAP PO PRN; +GLYCOPYRROLATE 0.2 MG/ML 2 ML VIAL ONE; +HYDROcodone/APAP 7.5-325MG 1 EACH TAB PO PRN; +HYDROmorphone (PF) 1 MG/ML ONE; -LACTATED RINGERS 1,000 ML IV SCH; -LIDOCAINE 1% (10MG/ML) FOR IV START INTRADERMA PRN; +LIDOCAINE 1% INJ 10MG/ML (20 ML MDV) ONE; +MAGNESIUM HYDROXIDE 2,400 MG/30 ML CUP PO PRN; -MELOXICAM 7.5 MG TAB PO PRN; +MIDAZOLAM 2 MG/2 ML VIAL IV PRN; +NALOXONE 0.4 MG/ML 1 ML VIAL IV PRN; +NEOSTIGMINE 1 MG/ML 10 ML VIAL ONE; -ONDANSETRON 4 MG/2 ML VIAL IVP ONE; +ONDANSETRON 4 MG/2 ML VIAL IVP PRN; +PROPOFOL 10 MG/ML 20 ML VIAL IV ONE; +ROCURONIUM 10 MG/ML (5 ML VIAL) IV ONE; +ROPIVACAINE 5 MG/ML 30 ML VIAL ONE; +SENNOSIDES-DOCUSATE SODIUM 1 EACH TAB PO SCH; +SODIUM CHLORIDE 0.9% 1,000 ML IV SCH; +SUCCINYLCHOLINE CHLORIDE 200 MG/10 ML VIAL IV ONE; +TRANEXAMIC 1,000 MG/100ML-NACL 1,000 MG in SALINE 1 100ML.BAG IVPB PRN; +TRANEXAMIC 1,000 MG/100ML-NACL PREMIX BAG ONE; -TRANEXAMIC ACID 1,000 MG in SODIUM CHLORIDE 0.9% 100 ML IVPB PRN; +ePHEDrine 50 MG/ML 1 ML VIAL ONE; +fentaNYL (PF) 50 MCG/ML 2 ML AMP ONE
[2023-09-11] MEDS: LACTATED RINGERS 1,000 ML IV SCH (07:43)
[2023-09-11 08:19] LABS: Glucose,Whole Blood 97 mg/dL (70-110)
[2023-09-11] MEDS: GABAPENTIN 300 MG CAP PO PRN (08:29)
[2023-09-11] MEDS: MELOXICAM 7.5 MG TAB PO PRN (08:29)
[2023-09-11] MEDS: ONDANSETRON 4 MG/2 ML VIAL IVP ONE (08:29)
[2023-09-11] MEDS: DEXAMETHASONE SOD PHOSPHATE 4 MG/ML 1 ML VIAL IV ONE (08:29)
[2023-09-11] MEDS: MIDAZOLAM 2 MG/2 ML VIAL IVP ONE (08:31)
[2023-09-11] MEDS: ROPIVACAINE 5 MG/ML 30 ML VIAL MISCELLANE ONE ×2 (09:37→10:08)
[2023-09-11] MEDS: ceFAZolin 1,000 MG in SODIUM CHLORIDE 0.9% 1,000 ML IRRIGATION ONE (09:39)
--- NOTE | 2023-09-11 10:15 | P.OP ---
Date of Procedure: 09/11/23 Preoperative Diagnosis: severe osteoarthritis left hip Postoperative Diagnosis: severe osteoarthritis left hip Procedure(s) Performed: left total hip arthroplasty with a direct anterior approach Implants: [employer] Polarstem standard size 4 with a collar [employer] R3, 3 hole hemispherical acetabular shell, 48 mm [employer] Reflection 6.5 mm cancellus screw, 20 mm 2 [employer] R3, XLPE 20 acetabular liner [employer] Oxinium femoral head 32 mm, +0 All components were press-fit. The articulation is Oxinium on polyethylene. Anesthesia: GETA Surgeon: Benjamin Shea Manager Inventory Control #1: Lora Adams Estimated Blood Loss (ml): 400 Pathology: none sent Condition: stable Disposition: PACU Indications for Procedure: After failure of conservative treatment we discussed the surgical and nonsurgica l treatment options at length. Patient wishes to proceed with a total hip arthroplasty with a direct anterior approach. Complications specific to this procedure were discussed at length, including but not limited to infection, leg length discrepancy, dislocation, nerve injury, and fracture. Covid-19 was also discussed at length with the patient, and they are aware of the current policies and procedures. The patient was given the option of delaying surgery, but they elect to proceed knowing these risks. Patient is aware of all these complications and informed consent was obtained Operative Findings: the operative findings are consistent with severe osteoarthritis of the left hip Description of Procedure: The patient was seen and evaluated in the preoperative area and the consent was reviewed. The operative site was marked with a skin marker. The patient verified the procedure and operative site. A KELLE block was placed by anesthesia in the preoperative area. The patient was then brought to the operating room and given preoperative antibiotics intravenously. 1 g of Tranexamic acid was also given intravenously. A general anesthetic was administered by the anesthesia department. The patient was then placed on the Union table with the bony prominences well-padded. The hip area was then prepped with a ChloraPrep solution and draped in the usual sterile fashion. A universal timeout was then performed, which confirmed the patient's name, surgical site, ALLERGIES, and procedure being performed on the consent. Next the incision site was located at 1 cm distal and 4 cm lateral to the anterior superior iliac spine. The skin and subcutaneous tissues were sharply incised. Incision was carefully dissected down to the fascia overlying the tensor fascia nate muscle. This fascia was then incised in line with the muscle fibers. Care was taken to stay laterally in order to avoid injuring the lateral femoral cut aneous nerve. Next, using blunt finger dissection, the tensor fascia nate muscle was dissected off its investing fascia. The muscle was then carefully retracted laterally with a cobra retractor over the lateral neck of the femur. Next, the circumflex vessels were identified and cauterized using the Aquamantis device. The anterior hip capsule was then exposed. The capsule was then opened and an inverted T fashion. The retractors were then placed intracapsularly. The retractors were maintained intracapsular throughout the procedure. The proximal femur was then visualized. Fluoroscopic x-rays were then taken in order to evaluate the preoperative leg lengths. A small amount of traction was placed on the leg. The femoral neck was then osteotomized at the appropriate level above the lesser trochanter. A small wedge of bone was then removed from the remaining femoral head. Next, using a corkscrew the femoral head was removed from the acetabulum. On gross visual inspection, the femoral head had complete loss of articular cartilage and multiple periarticular osteophytes. The femoral head was then measured. Attention was then turned to the acetabulum. The acetabulum was exposed and any remaining labrum was excised. Sequential reaming of the acetabulum was performed using fluoroscopic guidance until there was a good bed of bleeding cancellus bone. When the appropriate size was reached, a trial was then placed. The position and fit of the trial was checked with fluoroscopy. The trial was then removed. Then, using fluoroscopic guidance, the final implant was impacted at 20 of anteversion and 40 of abduction, and fully seated in the acetabulum. 2 screws were then placed in the acetabulum. Again fluoroscopy was used to check position of the screws. Next, the liner was then impacted, with a 20 elevated liner located in the anterior superior quadrant. Component locking was confirmed. Attention was then directed to the femur. With the aid of the Union table, the femur was externally rotated to approximately 130, extended, and adducted under the opposite leg. A side hook was then placed under the proximal femur, and the side hook elevator was used to elevate the proximal femur while releasing the capsule. Retractors were then placed. A capsular release was performed, as well as a release of the conjoined tendon, which afforded excellent visual ization of the proximal femur. Next, a box osteotome was used to lateralize the proximal femur. A cutter hand was then used to locate the femoral canal. Sequential broaching was then performed with appropriate size which afforded excellent fixation in the proximal femur. A trial was then placed with appropriate head and neck, and the hip was gently reduced with the aid of the Union table. Fluoroscopy was then used to check position of the components, as well as to evaluate the leg lengths and offset. The leg lengths and offset were measured as closely as possible to ensure stability of the hip. The hip was then gently dislocated and the trials were then removed. Final implants were then impacted and the hip was again reduced. Final fluoroscopic x-rays confirmed that the components were in anatomic position. The leg lengths and offset were measured and were found to coincide with the trial measurements. The hip was also taken through range of motion, and found to be stable. The hip was then copiously irrigated with antibiotic solution with pulsatile lavage. The hip was then irrigated with Irrisept solution. The soft tissues were then injected with a ropivacaine solution. A second dose of 1 g of Tranexamic acid was also given intravenously. The fascia was then closed with 2-0 strata fix suture. The subcutaneous tissue was closed with 3-0 Vicryl. The subcuticular tissue was closed with 3-0 strata fix suture. The skin was then closed with Exofin skin glue. After the glue and dried, and Optifoam silver impregnated dressing was applied. The patient was then transferred to the recovery room in stable condition. The agency sales management assistant PRAVIN Jama was required due to the complexity of surgery, and the need for skilled surgical aides teacher for positioning, draping, exposure, retraction, and closure of the wound.
--- NOTE | 2023-09-11 10:45 | FL ---
Fluoroscopy INDICATION: Pain FINDINGS: Fluoroscopy time: 28 seconds. Total dose area product (DAP) in uGy*m?, mGy*cm? (or similar): Images obtained: 4. IMPRESSION: 1. Documentation of fluoroscopy.
[2023-09-11 10:56] VITALS: TEMP 97.3
--- NOTE | 2023-09-11 11:10 | P.ANPRN ---
Procedure Note - Anesthesia - Nerve Block Performed Left Konstantin Single Time Out Performed: Yes ([id number]) Date of Procedure: 09/11/23 Procedure Start Time: : Procedure Stop Time: :35 Location of Patient: PreOp Indication: Acute Post-Operative Pain, Requested by Surgeon Specifically requested for management of pain by DrMarietta: Benjamin Shea Sedation Type: Sedate with meaningful contact maintained Preparation: Sterile Prep Position: Supine Catheter: None Needle Types: Pajunk Needle Gauge: 21 Ultrasound used to visualize needle placement: Yes Ultrasound used to observe medication spread: Yes Injectate: 0.5% Ropivacaine (see comment for volume) (30cc) Blood Aspirated: No Pain Paresthesia on Injection Noted: No Resistance on Injection: Normal Image Stored and Saved: Yes Events: Uneventful and Well Tolerated
--- NOTE | 2023-09-11 11:23 | XR ---
EXAMINATION TYPE: XR Hip Limited LT DATE OF EXAM: 09/11/2023 COMPARISON: None HISTORY: Post hip replacement TECHNIQUE: AP left hip FINDINGS: There is placement of a left femoral prosthesis. Acetabular component is present. Postsurgi el soft tissue changes are present. No acute fractures are evident. IMPRESSION: 1. No acute fracture post left hip replacement
[2023-09-11] MEDS: HYDROcodone/APAP 7.5-325MG 1 EACH TAB PO PRN (14:08)
[2023-09-11 15:08] VITALS: BP 122/59; PULSE 56; RESP 16
== END | disposition home health service (06) ==
LOC: OR 07:34
PROVIDERS: ATTEND Orthopaedic Surgery
DX: M16.12 Unilateral primary osteoarthritis, left hip (principal); G89.18 Other acute postprocedural pain; I10 Essential (primary) hypertension; J45.909 Unspecified asthma, uncomplicated; E03.9 Hypothyroidism, unspecified; K21.9 Gastro-esophageal reflux disease without esophagitis; Z87.891 Personal history of nicotine dependence; Z79.890 Hormone replacement therapy; Z79.899 Other long term (current) drug therapy
CPT/HCPCS: 97530; 97161; 64447; 73501; 27130; C1776; J2250; J0330; J1100; J2710; J0690 ×2; J2405; J2001; J3010; J1170; J2795; J2704

== ENCOUNTER → 2024-11-27 | Outpatient (CLI) | payer MEDICARE, BC ==
--- NOTE | 2024-11-27 12:17 | USB ---
Reason for Exam: Clinical finding. Patient History: Menarche at age 12. First Full-Term at age 24. Postmenopausal. Risk Values: Leah 5 year model risk: 1.3%. NCI Lifetime model risk: 1.4%. Prior Study Comparison: 09/17/2018 Bilateral Screening Mammogram, Unknown. 12/23/2021 Bilateral Screening Mammogram, Unknown. 06/07/2023 Bilateral MG 3D screening mammo w/cad, [facility]. Findings: The axilla of the left breast and the retroareolar of the left breast were scanned. Technique utilized:US breast limited LT Image; Ultrasound imaging of: All 4 quadrants, the retroareolar region and axilla. No evidence for organizing fluid collection or mass. No finding to correlate with patient's pain. Overall Assessment: Negative, BI-RAD 1 Management: Screening Mammogram of both breasts in 1 year. A clinical breast exam by your physician is recommended on an annual basis and results should be correlated with mammographic findings. This exam should not preclude additional follow-up of suspicious palpable abnormalities. Results were given to the patient verbally at the time of exam. [facility], , 11/27/2024 12:14 PM. Electronically signed and approved by: Miguelangel Burnette DO
--- NOTE | 2024-11-28 09:55 | MM ---
Reason for Exam: Clinical finding. Last mammogram was performed 1 year(s) and 5 month(s) ago. Indicated Problems: Pain of the left side. Patient History: Menarche at age 12. First Full-Term at age 24. Postmenopausal. Risk Values: Leah 5 year model risk: 1.3%. NCI Lifetime model risk: 1.4%. Prior Study Comparison: 07/27/2017 Bilateral Screening Mammogram, Unknown. 09/17/2018 Bilateral Screening Mammogram, Unknown. 12/23/2021 Bilateral Screening Mammogram, Unknown. 06/07/2023 Bilateral MG 3D screening mammo w/cad, [facility]. Tissue Density: There are scattered areas of fibroglandular density. Findings: Analyzed By CAD. No new suspicious masses, calcifications or distortions. No finding to correlate with left breast pain. Overall Assessment: Incomplete: need additional imaging evaluation, BI-RAD 0 Management: Diagnostic Breast Ultrasound of the left breast. Results were given to the patient verbally at the time of exam. Patient should continue monthly self-breast exams. A clinical breast exam by your physician is recommended on an annual basis. This exam should not preclude additional follow-up of suspicious palpable abnormalities. Note on Leah scores and lifetime risk: 1. A Leah score greater than 3% is considered moderate risk. If this is the case, consider specialist referral to assess eligibility for a risk reducing agent. 2. If overall lifetime risk for the development of breast cancer is 20% or higher, the patient may qualify for future screening with alternating mammogram and breast MRI. [facility], , 11/27/2024 11:54 AM. Electronically signed and approved by: Miguelangel Burnette DO
== END | disposition home or self-care (01) ==
LOC: RADMAMWWP 11:32
PROVIDERS: ATTEND Family Medicine
DX: N64.4 Mastodynia (principal); R92.323 Mammographic fibroglandular density, bilateral breasts; Z78.0 Asymptomatic menopausal state
CPT/HCPCS: 77066; 76642; G0279; 77062

== ENCOUNTER 2024-12-31 21:56 | Inpatient (IN) | payer MEDICARE, BC ==
[2024-12-31 22:47] LABS: Basophils # (A) 0.03 10*3/uL (0.00-0.10); Basophils % (A) 0.4 %; Eosinophils # (A) 0.10 10*3/uL (0.04-0.35); Eosinophils % (A) 1.3 %; HCT 40.7 % (37.2-46.3); HGB 13.7 g/dL (12.0-15.0); Lymphocytes # (A) 0.93 10*3/uL (0.90-5.00); Lymphocytes % (A) 12.2 %; MCH 31.5 pg (27.0-32.0); MCHC 33.7 g/dL (32.0-37.0); MCV 93.6 fL (80.0-97.0); Monocytes # (A) 0.70 10*3/uL (0.20-1.00); Monocytes % (A) 9.2 %; Neutrophils # (A) 5.84 10*3/uL (1.80-7.70); Neutrophils % (A) 76.6 %; Platelet Count 276 10*3/uL (140-440); RBC 4.35 10*6/uL (4.10-5.20); RDW 12.3 % (11.5-14.5); WBC 7.62 10*3/uL (4.50-10.00)
[2024-12-31] MEDS: SODIUM CHLORIDE 0.9% 500 ML 500 ML IV STA (22:48)
--- NOTE | 2024-12-31 22:48 | ED ---
General Adult HPI - General Chief complaint: Altered Mental Status Stated complaint: Altered Mental Time Seen by Provider: 12/31/24 22:02 Source: patient, RN notes reviewed, old records reviewed Mode of arrival: wheelchair Limitations: no limitations - History of Present Illness Initial comments: 84-year-old female presenting with an episode of confusion and abnormal speech. This occurred at approximately 915 prior to arrival. Patient had trouble st arting her car and did not seem to comprehend what she was doing. She had word finding difficulty and some slurred speech. This resolved during transport to the hospital. Patient is awake alert without complaint. No headache, no chest pain. History of hypertension. No previous CVA. - Related Data Home Medications Medication Instructions Recorded Confirmed Omeprazole [PriLOSEC] 20 mg PO DIRECTED 06/26/17 09/11/23 Meloxicam 15 mg PO DIRECTED 07/01/21 09/11/23 Losartan Potassium [Cozaar] 100 mg PO QAM 02/16/22 09/11/23 HYDROcodone/APAP 7.5-325MG [Cyril 1 tab PO Q4H PRN 05/07/22 09/11/23 7.5-325] Metoprolol Succinate (ER) [Toprol 25 mg PO QAM 05/07/22 09/11/23 Xl] Triamterene/Hydrochlorothiazid 1 tab PO QAM 05/07/22 09/11/23 [Triamterene-Hctz 37.5-25 mg Tb] Levothyroxine Sodium 25 mcg PO QAM 09/08/23 09/11/23 Previous Rx's Medication Instructions Recorded Aspirin 325 mg PO BID #60 tab 09/11/23 HYDROcodone/APAP 7.5-325MG [Cyril 1 - 2 tab PO Q6H PRN #32 tab 09/11/23 7.5-325] Ondansetron Odt [Zofran Odt] 1 tab PO Q8HR PRN #10 tab 09/11/23 Sennosides [Senokot] 2 tab PO DAILY PRN #60 tablet 09/11/23 Allergies Allergy/AdvReac Type Severity Reaction Status Date / Time No Known Allergies Allergy Verified 12/31/24 22:07 Review of Systems ROS Statement: Those systems with pertinent positive or pertinent negative responses have been documented in the HPI. ROS Other: All systems not noted in ROS Statement are negative. Past Medical History Past Medical History: Asthma, Cancer, Deep Vein Thrombosis (DVT), GERD/Reflux, Hypertension, Osteoarthritis (OA), Skin Disorder Additional Past Medical History / Comment(s): psoriasis, basal cell cancer on face, hypoglycemia History of Any Multi-Drug Resistant Organisms: None Reported Past Surgical History: Joint Replacement, Orthopedic Surgery Additional Past Surgical History / Comment(s): cancer removed from face, neck surgery, carpal tunnel rt elbow, rt knee replacement, artie cataracts Past Anesthesia/Blood Transfusion Reactions: Postoperative Nausea & Vomiting (PONV) Additional Past Anesthesia/Blood Transfusion Reaction / Comment(s): Dry heaves. Past Psychological History: No Psychological Hx Reported Smoking Status: Never smoker Past Alcohol Use History: None Reported Past Drug Use History: None Reported - Past Family History Brother(s) Family Medical History: Cancer Additional Family Medical History / Comment(s): Melanoma. General Exam Limitations: no limitations General appearance: alert, in no apparent distress Head exam: Present: atraumatic, normocephalic Eye exam: Present: normal appearance, PERRL ENT exam: Present: normal exam Neck exam: Present: normal inspection. Absent: tenderness, meningismus Respiratory exam: Present: normal lung sounds bilaterally. Absent: respiratory distress, wheezes Cardiovascular Exam: Present: regular rate, normal rhythm GI/Abdominal exam: Present: soft. Absent: distended, tenderness Extremities exam: Present: normal inspection, normal capillary refill. Absent: pedal edema Neurological exam: Present: alert, oriented X3, CN II-XII intact, other (NIH of 0). Absent: motor sensory deficit Psychiatric exam: Present: normal affect, normal mood Skin exam: Present: warm, dry, intact Course Vital Signs 12/31/24 12/31/24 22:02 22:52 Temperature 97.7 F 98.1 F Pulse Rate 82 64 Respiratory 18 16 Rate Blood Pressure 187/97 191/101 O2 Sat by Pulse 98 97 Oximetry Medical Decision Making - Medical Decision Making Was pt. sent in by a medical professional or institution (, PA, ANGULAR DEVELOPER, urgent care, hospital, or intermediate...) When possible be specific @ -No Did you speak to anyone other than the patient for history (EMS, parent, family, police, friend...)? What history was obtained from this source @ -No Did you review nursing and triage notes (agree or disagree)? Why? @ -I reviewed and agree with nursing and triage notes Were old charts reviewed (outside hosp., previous admission, EMS record, old EKG, old radiological studies, urgent care reports/EKG's, intermediate records)? Report findings @ -No old charts were reviewed Differential CVA Ischemic stroke, hemorrhagic stroke, brain tumor, atypical migraine, Wernicke's encephalopathy, seizure, multiple sclerosis, meningitis, encephalitis, hypoglycemia, Guillain-Rooney, electrolytes disturbance, myasthenia gravis.... This is not meant to be an all-inclusive list EKG interpreted by me (3pts min.). @Sinus rhythm rate of 62, KS interval 171, QRS duration 92, QTc [address] segment elevation. X-rays interpreted by me (1pt min.). @ -Chest is negative for acute cardiopulmonary findings CT interpreted by me (1pt min.). @ -CT brain showing volume loss without acute process, no intracranial hemorrhage. U/S interpreted by me (1pt. min.). @ -None done What testing was considered but not performed or refused? (CT, X-rays, U/S, labs)? Why? @ -None What meds were considered but not given or refused? Why? @ -None Did you discuss the management of the patient with other professionals (professionals i.e. , PA, ANGULAR DEVELOPER, lab, RT, psych nurse, social work msw, grounds foreman, te acher, school services officer, renal case manager)? Give summary @[facility] Was smoking cessation discussed for >3mins.? @ -No Was critical care preformed (if so, how long)? @ -Yes, 35 minutes Were there social determinants of health that impacted care today? How? (Homelessness, low income, unemployed, alcoholism, drug addiction, transportation, low edu. Level, literacy, decrease access to med. care, snf, rehab)? @ -No Was there de-escalation of care discussed even if they declined (Discuss DNR or withdrawal of care, Hospice)? DNR status @ -No What co-morbidities impacted this encounter? (DM, HTN, Smoking, COPD, CAD, Cancer, CVA, ARF, Chemo, Hep., AIDS, mental health diagnosis, sleep apnea, morbid obesity)? @ -Hypertension. Was patient admitted / discharged? Hospital course, mention meds given and route , prescriptions, significant lab abnormalities, going to OR and other pertinent info. @ -[84-year-old female presenting with acute onset speech abnormality and confusion. This was resolved at the time of my initial evaluation at presentation. History consistent with TIA. Patient does receive EKG, CT, chest x-ray, laboratory testing in the emergency department this is unremarkable including a CT which is negative for intracranial hemorrhage or mass effect. She remains asymptomatic while in the emergency department. She is given 1 aspirin and will be admitted for further evaluation of TIA. Undiagnosed new problem with uncertain prognosis? @ -No Drug Therapy requiring intensive monitoring for toxicity (Heparin, Nitro, Insulin, Cardizem)? @ -No Were any procedures done? @ -No Diagnosis/symptom? @TIA Acute, or Chronic, or Acute on Chronic? @ -Acute Uncomplicated (without systemic symptoms) or Complicated (systemic symptoms)? @ -Complicated Side effects of treatment? @ -No Exacerbation, Progression, or Severe Exacerbation? @ -No Poses a threat to life or bodily function? How? (Chest pain, USA, LA, pneumonia, PE, COPD, DKA, ARF, appy, cholecystitis, CVA, Diverticulitis, Homicidal, Suicidal, threat to staff... and all critical care pts) @Yes, CVA - Lab Data Result diagrams: 12/31/24 22:07 12/31/24 22:07 Lab Results 12/31/24 12/31/24 12/31/24 Range/Units 22:07 22:07 22:07 WBC 7.62 (4.50-10.00) 10*3/uL RBC 4.35 (4.10-5.20) 10*6/uL Hgb 13.7 (12.0-15.0) g/dL Hct 40.7 (37.2-46.3) % MCV 93.6 (80.0-97.0) fL MCH 31.5 (27.0-32.0) pg MCHC 33.7 (32.0-37.0) g/dL Plt Count 276 (140-440) 10*3/uL MPV 10.7 (9.5-12.2) fL Immature Gran % (Auto) 0.3 % Neutrophils % 76.6 % Lymphocytes % 12.2 % Monocytes % 9.2 % Eosinophils % 1.3 % Basophils % 0.4 % Immature Gran # 0.02 (0.00-0.04) 10*3/uL Neutrophils # 5.84 (1.80-7.70) 10*3/uL Lymphocytes # 0.93 (0.90-5.00) 10*3/uL Monocytes # 0.70 (0.20-1.00) 10*3/uL Eosinophils # 0.10 (0.04-0.35) 10*3/uL Basophils # 0.03 (0.00-0.10) 10*3/uL PT 11.2 (10.0-12.5) sec INR 1.0 (<1.2) APTT 26.4 (22.0-30.0) sec Sodium 135 L (137-145) mmol/L Potassium 4.0 (3.5-5.1) mmol/L Chloride 98 (98-107) mmol/L Carbon Dioxide 26 (22-30) mmol/L Anion Gap 11 mmol/L BUN 13 (7-17) mg/dL Creatinine 0.56 (0.52-1.04) mg/dL Est GFR (CKD-EPI)AfAm >90 (>60 ml/min/1.73 sqM) Est GFR (CKD-EPI)NonAf 86 (>60 ml/min/1.73 sqM) Glucose 99 (74-99) mg/dL Calcium 10.1 (8.4-10.2) mg/dL Total Bilirubin 0.6 (0.2-1.3) mg/dL AST 37 H (14-36) U/L ALT 22 (4-34) U/L Alkaline Phosphatase 137 H (38-126) U/L Creatine Kinase 156 H (30-135) U/L Troponin I (0.000-0.034) ng/mL Total Protein 7.2 (6.3-8.2) g/dL Albumin 4.7 (3.5-5.0) g/dL 12/31/24 Range/Units 22:07 WBC (4.50-10.00) 10*3/uL RBC (4.10-5.20) 10*6/uL Hgb (12.0-15.0) g/dL Hct (37.2-46.3) % MCV (80.0-97.0) fL MCH (27.0-32.0) pg MCHC (32.0-37.0) g/dL Plt Count (140-440) 10*3/uL MPV (9.5-12.2) fL Immature Gran % (Auto) % Neutrophils % % Lymphocytes % % Monocytes % % Eosinophils % % Basophils % % Immature Gran # (0.00-0.04) 10*3/uL Neutrophils # (1.80-7.70) 10*3/uL Lymphocytes # (0.90-5.00) 10*3/uL Monocytes # (0.20-1.00) 10*3/uL Eosinophils # (0.04-0.35) 10*3/uL Basophils # (0.00-0.10) 10*3/uL PT (10.0-12.5) sec INR (<1.2) APTT (22.0-30.0) sec Sodium (137-145) mmol/L Potassium (3.5-5.1) mmol/L Chloride (98-107) mmol/L Carbon Dioxide (22-30) mmol/L Anion Gap mmol/L BUN (7-17) mg/dL Creatinine (0.52-1.04) mg/dL Est GFR (CKD-EPI)AfAm (>60 ml/min/1.73 sqM) Est GFR (CKD-EPI)NonAf (>60 ml/min/1.73 sqM) Glucose (74-99) mg/dL Calcium (8.4-10.2) mg/dL Total Bilirubin (0.2-1.3) mg/dL AST (14-36) U/L ALT (4-34) U/L Alkaline Phosphatase (38-126) U/L Creatine Kinase (30-135) U/L Troponin I <0.012 (0.000-0.034) ng/mL Total Protein (6.3-8.2) g/dL Albumin (3.5-5.0) g/dL Critical Care Time Critical Care Time: Yes Total Critical Care Time: 35 Disposition Clinical Impression: TIA (transient ischemic attack) Disposition: ADMITTED IP TO THIS HOSP Condition: Stable Is patient prescribed a controlled substance at d/c from ED?: No Referrals: Callie Chawla MD [Primary Care Provider] - 1-2 days Time of Disposition: 00:09
[2024-12-31 22:58] LABS: INR 1.0 (<1.2); Partial Thromboplastin Time 26.4 sec (22.0-30.0); Prothrombin Time 11.2 sec (10.0-12.5)
[2024-12-31 23:21] LABS: ALT 22 U/L (4-34); AST 37 U/L (14-36); African American GFR (CKD) >90 (>60 ml/min/1.73 sqM); Albumin 4.7 g/dL (3.5-5.0); Alkaline Phosphatase 137 U/L (38-126); Anion Gap 11 mmol/L; Blood Urea Nitrogen 13 mg/dL (7-17); Calcium 10.1 mg/dL (8.4-10.2); Carbon Dioxide 26 mmol/L (22-30); Chloride 98 mmol/L (98-107); Creatine Kinase 156 U/L (30-135); Glucose 99 mg/dL (74-99); Non-African American GFR(CKD) 86 (>60 ml/min/1.73 sqM); Potassium 4.0 mmol/L (3.5-5.1); Sodium 135 mmol/L (137-145); Total Protein 7.2 g/dL (6.3-8.2)
--- NOTE | 2024-12-31 23:29 | CT ---
EXAM: CT Head Without Intravenous Contrast CLINICAL HISTORY: ITS.REASON CT Reason: Neuro deficit, acute, stroke suspected TECHNIQUE: Axial computed tomography images of the head/brain without intravenous contrast. CTDI is 49.1 mGy and DLP is 1166 mGy-cm. This CT exam was performed using one or more of the following dose reduction techniques: automated exposure control, adjustment of the mA and/or kV according to patient size, and/or use of iterative reconstruction technique. COMPARISON: Prior chest x-ray from May 07, 2022. FINDINGS: Brain: Unremarkable. No hemorrhage. No significant white matter disease. No edema. Ventricles: Unremarkable. No ventriculomegaly. Bones/joints: Diffuse osteopenia throughout the visualized bones. No acute fracture. Soft tissues: Unremarkable. Sinuses: Unremarkable as visualized. No acute sinusitis. Mastoid air cells: Unremarkable as visualized. No mastoid effusion. IMPRESSION: No evidence of acute cardiopulmonary process.
--- NOTE | 2024-12-31 23:58 | XR ---
EXAM: XR Chest, 2 Views CLINICAL HISTORY: Altered mental status TECHNIQUE: Frontal and lateral views of the chest. COMPARISON: Chest two views 05/05/2022 FINDINGS: Lungs: No focal consolidation. The pulmonary vasculature demonstrates no significant radiographic abnormality. Pleural space: Unremarkable. No pneumothorax. No large pleural effusion. Heart: Unremarkable. No cardiomegaly. Mediastinum: Unremarkable. No significant abnormality identified. The trachea is midline. Bones/joints: Similar scoliosis of the thoracolumbar spine with chronic degenerative changes. No acute fracture. Vasculature: Similar unfolding and tortuosity of the descending aorta. No appreciable alteration from the prior examination. IMPRESSION: No focal consolidation, acute cardiopulmonary process or significant alteration from the prior examination.
[2025-01-01] MEDS: ASPIRIN 325 MG TAB PO STA (00:18)
[2025-01-01] MEDS: SODIUM CHLORIDE 0.9% 1,000 ML IV SCH (00:19)
[2025-01-01 07:00] VITALS: TEMP 98
--- NOTE | 2025-01-01 07:09 | US ---
EXAMINATION TYPE: US carotid duplex BILAT DATE OF EXAM: 01/01/2025 COMPARISON: NONE CLINICAL INDICATION: Female, 84 years old with history of Stenosis; ? stenosis Additional History: .... TECHNIQUE: Grayscale, color Doppler and spectral Doppler evaluation of the bilateral carotid systems and vertebral arteries. Indirect Doppler criteria was utilized. FINDINGS: EXAM MEASUREMENTS: RIGHT: Peak Systolic Velocity (PSV) cm/sec ----- Right CCA: 43.0 ----- Right ICA: 74.8 ----- Right ECA: 56.9 ICA/CCA ratio: 1.7 RIGHT: End Diastole cm/sec ----- Right CCA: 00. ----- Right ICA: 18.4 ----- Right ECA: 6.9 LEFT: Peak Systolic Velocity (PSV) cm/sec ----- Left CCA: 52.5 ----- Left ICA: 91.6 ----- Left ECA: 45.9 ICA/CCA ratio: 1.7 LEFT: End Diastole cm/sec ----- Left CCA: 10.7 ----- Left ICA: 23.4 ----- Left ECA: 0.0 VERTEBRALS (direction of flow): Right Vertebral: Antegrade Left Vertebral: Antegrade Rhythm: Normal [employer] NOTES: mild plaque bilateral bulbs. No elevated velocities seen Color Doppler imaging shows patency with blood flow throughout the carotid artery. Spectral waveforms are within normal limits. IMPRESSION: Mild atherosclerotic plaque within the bilateral carotid bulbs. Right: No hemodynamically significant stenosis. Left: No hemodynamically significant stenosis. Criteria for Assigning % of Stenosis / Diameter reduction (Estimation based on the indirect measurements of the internal carotid artery velocities (ICA PSV). 1. Normal (no stenosis)=ICA PSV < 180 cm/s: ratio < 2.0: ICA EDV<40 cm/s. 2. Less than 50% stenosis=ICA PSV < 180 cm/s: ratio < 2.0: ICA EDV<40 cm/s. 3. 50 to 69% stenosis=ICA PSV of 180 to 230 cm/s: ration 2.0 ? 4.0: ICA EDV 40-100 cm/s. PSV 125-180 cm/sec and ICA/CCA PSV Ratio ? 2.0 is also consistent with 50-69% stenosis 4. Greater than 70% stenosis to near occlusion= ICA PSV > 230 cm/s: ratio > 4.0: ICA EDV > 100 cm/s. 5. Near occlusion= ICA PSV velocities may be low or undetectable: variable ratio and ICA EDV. 6. Total occlusion=unable to detect flow. [facility], , 01/01/2025 7:06 AM
[2025-01-01 08:23] VITALS: BP 166/93; PULSE 62; RESP 17
--- NOTE | 2025-01-01 12:51 | CA ---
Transthoracic Echo Report Name: Yecenia Martin Age: 84 Gender: F : 1940 Exam Date: 01/01/2025 09:27 Exam Location: [place] [facility] Ht (in): 60 Wt (lb): 135 Ordering Physician: Miguelangel Cabrera MD Attending/Referring Phys: [id number], Deborah Line Camera Operator Kendy Thompson RDCS Procedure CPT: Indications: Thrombus Cardiac Hx: Technical Quality: Good Contrast 1: Total Dose (mL): Contrast 2: Total Dose (mL): MEASUREMENTS (Male / Female) Normal Values 2D ECHO LV Diastolic Diameter PLAX 3.8 cm 4.2 - 5.9 / 3.9 - 5.3 cm LV Systolic Diameter PLAX 2.7 cm IVS Diastolic Thickness 1.0 cm 0.6 - 1.0 / 0.6 - 0.9 cm LVPW Diastolic Thickness 0.9 cm 0.6 - 1.0 / 0.6 - 0.9 cm LV Relative Wall Thickness 0.5 RV Internal Dim ED PLAX 3.6 cm LA Systolic Diameter LX 3.3 cm 3.0 - 4.0 / 2.7 - 3.8 cm LV Diastolic Volume MOD 4C 83.8 cm??? LV Systolic Volume MOD 4C 38.6 cm??? LV Ejection Fraction MOD 4C 54.0 % LV Cardiac Index MOD 4C 2222.6 cm???/min???m??? LV Diastolic Length 4C 7.7 cm LV Systolic Length 4C 6.3 cm LV Diastolic Volume MOD 2C 75.2 cm??? LV Systolic Volume MOD 2C 26.5 cm??? LV Ejection Fraction MOD 2C 64.7 % LV Cardiac Index MOD 2C 2394.6 cm???/min???m??? LV Diastolic Length 2C 7.1 cm LV Systolic Length 2C 5.7 cm M-MODE Aortic Root Diameter MM 3.5 cm LA Systolic Diameter MM 2.1 cm LA Ao Ratio MM 0.6 DOPPLER AV Peak Velocity 124.3 cm/s AV Peak Gradient 6.2 mmHg Mitral E Point Velocity 103.6 cm/s Mitral A Point Velocity 91.8 cm/s Mitral E to A Ratio 1.1 MV Deceleration Time 301.7 ms MV E' Velocity 4.5 cm/s Mitral E to MV E' Ratio 22.8 TR Peak Velocity 251.1 cm/s TR Peak Gradient 25.2 mmHg Right Ventricular Systolic Press 35.3 mmHg FINDINGS Left Ventricle Left ventricular ejection fraction is estimated at 55-60 %. Normal left ventricular wall motion. Right Ventricle Normal right ventricular size. Mild pulmonary hypertension. Right Atrium Normal right atrial size. No right atrial thrombus or mass seen. Left Atrium Normal left atrial size. No left atrial thrombus or mass present. Mitral Valve Mild thickening/calcification of the posterior mitral valve leaflet. Mitral annular calcification.mild mitral regurgitation. Aortic Valve Trileaflet aortic valve. Thickened aortic valve without stenosiss. No aortic regurgitation.aortic valve sclerosis. 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 Mild tricuspid regurgitation. Pulmonic Valve Structurally normal pulmonic valve. Mild pulmonic regurgitation. Pericardium No pericardial effusion. Aorta Normal size aortic root and proximal ascending aorta. CONCLUSIONS 1. Normal left ventricular size and systolic function 2. Mild mitral regurgitation 3. 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 Mild tricuspid regurgitation and mild pulmonary hypertension Previewed by: Dr. Maye Morfin MD (Electronically Signed) Final Date: 01 January 2025 12:50
--- NOTE | 2025-01-01 13:31 | P.CNNES ---
History of Present Illness Consult date: 01/01/25 Requesting physician: Miguelangel Cabrera Reason for Consult: tia History of Present Illness: This is an 84-year-old woman who presents to the emergency department because of episode of speech difficulty and some confusion. Patient is companied to with her daughter. It seems that yesterday she went to the beach around 6-marc pm and her episode started around her early 9-marc p.m. in which she just felt off and did not know how to start her car then she was stuttering pink word finding difficulty. She stated that she was hydrating herself yesterday and had protective close as much as possible. She denies any focal weakness, visual disturbance, any new numbness. Her symptoms lasted for about 45 minutes. She denies any history of stroke or TIA. She does have underlying history of hypertension as well as right shoulder injury. Denies any history of seizures. She feels back to baseline. She is not on any antiplatelet at home. States her blood pressures she takes 3 medication for the most part it is controlled. Some of the workup during this hospital visit consisted of: Present to the hospital patient blood pressure is in the 180s to 190s systolic and diastolic is in the 90s to 100s. CBC with differential is unremarkable Chemistry panel is a sodium is 135 the glucose is 99 BUN/creatinine is within normal limits. CT of the head is reported as no evidence of acute cardiopulmonary process and it seems likely this is a typo since in the body of the report is reported as the brain is unremarkable there is no hemorrhage no edema. I personally reviewed the CT of the head and I agree there is no acute or subacute ischemic stroke. Carotid duplex is reported as mild atherosclerotic plaque within the bilateral carotid bulb. No hemodynamically significant stenosis bilaterally. Review of Systems As per HPI. Past Medical History Past Medical History: Asthma, Cancer, Deep Vein Thrombosis (DVT), GERD/Reflux, Hypertension, Osteoarthritis (OA), Skin Disorder Additional Past Medical History / Comment(s): psoriasis, basal cell cancer on face, hypoglycemia History of Any Multi-Drug Resistant Organisms: None Reported Past Surgical History: Joint Replacement, Orthopedic Surgery Additional Past Surgical History / Comment(s): cancer removed from face, neck surgery, carpal tunnel rt elbow, rt knee replacement, artie cataracts Past Anesthesia/Blood Transfusion Reactions: Postoperative Nausea & Vomiting (PONV) Additional Past Anesthesia/Blood Transfusion Reaction / Comment(s): Dry heaves. Past Psychological History: No Psychological Hx Reported Smoking Status: Never smoker Past Alcohol Use History: None Reported Past Drug Use History: None Reported - Past Family History Brother(s) Family Medical History: Cancer Additional Family Medical History / Comment(s): Melanoma. Medications and Allergies Home Medications Medication Instructions Recorded Confirmed Type Omeprazole [PriLOSEC] 20 mg PO QAM 06/26/17 01/01/25 History Losartan Potassium [Cozaar] 100 mg PO QAM 02/16/22 01/01/25 History HYDROcodone/APAP 7.5-325MG [[place] 1 tab PO BID PRN 05/07/22 01/01/25 History 7.5-325] Metoprolol Succinate (ER) [Toprol 25 mg PO QAM 05/07/22 01/01/25 History Xl] Levothyroxine Sodium 25 mcg PO AC-BRKFST 09/08/23 01/01/25 History Triamterene/Hydrochlorothiazid 1 tab PO QAM 01/01/25 01/01/25 History [Triamterene-Hctz 37.5-25 mg Tb] Allergies Allergy/AdvReac Type Severity Reaction Status Date / Time No Known Allergies Allergy Verified 01/01/25 07:12 Physical Examination - Vital Signs Vital Signs: Vital Signs Temp Pulse Pulse Resp BP BP Pulse Ox 01/01/25 07:55 91 L 01/01/25 07:00 62 17 166/93 97 01/01/25 06:59 98.0 F 58 L 16 151/83 97 01/01/25 04:46 53 L 16 129/66 97 01/01/25 02:21 98.8 F 55 L 18 167/88 96 01/01/25 00:13 97.8 F 64 16 184/94 97 12/31/24 22:52 98.1 F 64 16 191/101 97 12/31/24 22:02 97.7 F 82 18 187/97 98 Intake and Output 12/31/24 01/01/25 01/01/25 22:59 06:59 14:59 Other: Weight 61.235 kg GENERAL: The patient is lying in bed and is not in acute distress. MUSCULOSKELETAL: Has arthritic changes of hands and does have underlying history of Arthritis. NEUROLOGICAL: Higher mental function: The patient is awake, alert, oriented to self, place and time. Patient is following commands. No aphasia and no neglect. Cranial nerves: The pupils are round, equal and reactive to light and accommodation. Visual bonner are full to confrontation throughout. Extraocular movement is intact no nystagmus is noted. Facial sensation is normal to touch throughout. The facial strength is normal throughout. Hearing is moderately to severely decreased bilaterally to hand rub. Tongue is midline and moved [id number] without any difficulty. No dysarthria is noted. Shoulder shrug is normal bilaterally. Motor: The strength is hard to assess proximal right upper extremity because of shoulder injury but has antigravity. Otherwise 5 over 5 throughout. Normal tone and bulk. Cerebellum: Normal finger to nose bilaterally. Sensation: Sensation is normal to touch throughout. Reflexes (right/left): 2+ Plantars are downgoing bilaterally. Results - Laboratory Findings CBC and BMP: 12/31/24 22:07 12/31/24 22:07 Abnormal Lab Findings: Abnormal Labs 12/31/24 22:07 Sodium 135 L AST 37 H Alkaline Phosphatase 137 H Creatine Kinase 156 H Assessment and Plan Assessment: Patient is an 84-year-old woman who yesterday at night she had an episode of expressive aphasia with some confusion. Lasted for 45 minutes. Likely Transient Ischemic Attack (TIA) Hypertensive urgency Underlying history of Hypertension and is on 3 blood pressure medication Underlying history of Arthritis Plan: The patient was given aspirin 325 once in the ED then was started on aspirin 325 daily. I change it to 81 mg daily since there is no benefit of a higher dose compared to the 81 mg and that sufficient for secondary stroke prophylaxis. I will avoid dual antiplatelet since she bruises easily and her age which can increase risk for bleed and the patient and her family members are in agreement Started the patient on Lipitor 20 mg nightly for secondary stroke prophylaxis Ordered MRI of the brain. Pending 2D echo, lipid panel. I ordered hemoglobin A1c Continue neurochecks Cardiac monitoring PT OT and [employer] E[employer] OFFICER are consulted Will defer the rest of the medical management to the primary and other speciali st For DVT prophylaxis I started the patient on subcu heparin I discussed with the patient and her daughters at bedside Thank you for the consultation. Time with Patient: Greater than 30
--- NOTE | 2025-01-01 15:04 | MR ---
INDICATION: Patient age:Female; 84 years old; Reason for study: dysarthria, expressive aphasia. cva; PHH. COMPARISON: CT brain 12/31/2024. TECHNIQUE: Multi planar, multi sequence imaging was performed through the brain without intravenous c ontrast. FINDINGS: The becerril-white junctions, ventricular system, basal cisterns appear unremarkable. Mild age-appropriat e cerebral volume loss. Diffusion-weighted imaging shows no evidence of restricted diffusion to sugge st acute/subacute infarct. Intracranial arterial flow voids are maintained. Midline structures show n o abnormality. Patchy and confluent areas of high T2/FLAIR signal intensity are seen within the periv entricular white matter. The susceptibility weighted images couple of scattered foci of blooming saira fact consistent with prior microhemorrhage. The bone marrow signal is within normal limits. Bilateral aphakia. Moderate mucosal thickening of th e left sphenoid sinus. Minimal mucosal thickening in the bilateral maxillary sinuses inferiorly. IMPRESSION: 1. No evidence of intracranial mass or acute/subacute infarct. 2. Nonspecific advanced white matter changes, likely related to small vessel ischemic disease. 3. Moderate mucosal disease involving the left sphenoid sinus. [facility], , 01/01/2025 3:02 PM
[2025-01-01] MEDS ORDERED: HEPARIN SODIUM,PORCINE 5,000 UNIT/ML 1 ML VIAL SQ SCH (21:00)
[2025-01-01] MEDS ORDERED: ATORVASTATIN 20 MG TAB PO SCH (21:00)
[2025-01-01] MEDS ORDERED: ATORVASTATIN 40 MG TAB PO SCH (21:00)
--- NOTE | 2025-01-02 00:12 | HP ---
HISTORY AND PHYSICAL Combined history and physical and discharge summary CHIEF COMPLAINT: Change in mental status and abnormal speech. HISTORY OF PRESENT ILLNESS: This 84-year-old woman with a past medical problems, was spending time in the beach last yesterday. The patient had some confusion, abnormal speech. The patient monitored closely. The patient is feeling much better. The neurovascular workup was apparently negative and Neurology recommend outpatient followup at this time. MRI has been pending. 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 Needs outpatient followup. Otherwise, there is no history of fever, rigors, chills at this time. PAST MEDICAL HISTORY: Reviewed, which include DVT, GERD. Rest of the chart is also reviewed. HOME MEDICATIONS: Reviewed include triamterene, dose and rest of medications reviewed. ALLERGIES: None. FAMILY HISTORY: History of melanoma. SOCIAL HISTORY: No history of smoke, alcohol. REVIEW OF SYSTEMS: 14-point review of systems negative except as mentioned earlier. PHYSICAL EXAMINATION: VITAL SIGNS: Pulse 62, blood pressure 160/90, respirations 17. HEENT: Conjunctivae normal. NECK: No JVD. CARDIOVASCULAR: S1, S2. RESPIRATIONS: Breath sounds diminished at the bases. ABDOMEN: Soft, nontender. LEGS: No edema. NERVOUS SYSTEM: Nonfocal. LABORATORY DATA: Reviewed. ASSESSMENT: 1. Change in mental status and congestive heart failure, possible acute transient ischemic attack. 2. Mild hyponatremia. 3. History of deep vein thrombosis. 4. Hypertension. 5. History of asthma. 6. History of degenerative joint disease. 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 RECOMMENDATION: This 84-year-old woman presented with multiple complex medical issues. We will monitor the patient closely. We recommend to continue current management and symptomatic treatment, otherwise recommend antiplatelet agents, resume the home medications, Lipitor, follow closely with Cardiology, Neurology for continued followup with a 2D echo and other findings. The patient's family extremely keen on going home. Recommend close follow with Dr. Callie Chawla in the outpatient setting. MMODL / IJN: [id number] /
[2025-01-02] MEDS ORDERED: ASPIRIN 81 MG PO SCH (09:00)
[2025-01-02] MEDS ORDERED: ASPIRIN 325 MG TAB PO SCH (09:00)
== END 2025-01-01 17:24 | disposition home or self-care (01) | DRG 69 ==
LOC: EC 21:56 → 6NMEDSUR 01-01 00:09
PROVIDERS: ADMIT Hospitalist; ATTEND Hospitalist
DX: G45.9 Transient cerebral ischemic attack, unspecified (principal); E87.1 Hypo-osmolality and hyponatremia; I11.0 Hypertensive heart disease with heart failure; I50.9 Heart failure, unspecified; J45.909 Unspecified asthma, uncomplicated; R47.01 Aphasia; I16.0 Hypertensive urgency; M19.90 Unspecified osteoarthritis, unspecified site; K21.9 Gastro-esophageal reflux disease without esophagitis; Z79.82 Long term (current) use of aspirin; Z79.890 Hormone replacement therapy; Z85.828 Personal history of other malignant neoplasm of skin; Z86.718 Personal history of other venous thrombosis and embolism; Z96.651 Presence of right artificial knee joint
CPT/HCPCS: 36415; 70450; 70551; 71046; 80053; 82550; 83036; 84443; 84484; 85025; 85610; 85730; 93005; 93306; 93880; 96360; 96361; 99291